=== PATIENT | female | born 1950 | race Caucasian/White ===

== ENCOUNTER → 2017-02-04 | Outpatient (CLI) | payer MEDICARE, OTHER ==
--- NOTE | 2017-02-04 13:30 | REPMRS ---
Patient History The patient states she had a clinical breast exam in 11/07 Patient is postmenopausal. Family history of prostate cancer in brother at age 50 or over. Digital Woman Screen Mammo: February 04, 2017 - Exam #: [id number] Bilateral CC and MLO view(s) were taken. Technologist: Genna Augustin, Technologist Prior study comparison: January 14, 2016, digital woman screen mammo performed at [facility] to Woman. January 01, 2015, digital woman screen mammo performed at [facility] Woman. December 09, 2013, digital woman screen mammo performed at [facility] Woman. FINDINGS: There are scattered fibroglandular densities. There has been no change in the appearance of the mammogram from the prior studies. There is a mild amount of scattered fibroglandular density which is fairly symmetric. There is no interval development of dominant mass, architectural distortion, or clustered microcalcification suggestive of malignancy. ASSESSMENT: BI-RADS/ACR category 1 mammogram. Negative. Recommendation Routine screening mammogram in 1 year (for women over age 40). This mammogram was interpreted with the aid of an FDA-approved computer-aided dectection system. Electronically Signed By: Nikolas Howard MD 02/04/17 7031
== END ==
LOC: M WHC 09:53
PROVIDERS: ATTEND Internal Medicine
DX: Z12.31 Encounter for screening mammogram for malignant neoplasm of breast (principal)

== ENCOUNTER 2017-12-18 12:18 | Outpatient (RCR) | payer SELFPAY | END 2017-12-23 | LOC: M CR 12:18 | DX: Z51.89 Encounter for other specified aftercare (principal); I10 Essential (primary) hypertension ==

== ENCOUNTER 2018-01-27 14:33 | Outpatient (RCR) | payer SELFPAY | END 2018-02-20 | LOC: M CR 14:33 | DX: I10 Essential (primary) hypertension (principal) ==

== ENCOUNTER → 2018-02-08 | Outpatient (CLI) | payer MEDICARE, OTHER | LOC: M WHC 10:20 | DX: Z12.31 Encounter for screening mammogram for malignant neoplasm of breast (principal) | CPT/HCPCS: 77067 ==

== ENCOUNTER 2018-03-15 08:52 | Outpatient (RCR) | payer SELFPAY | END 2018-03-22 | LOC: M CR 08:52 | DX: I10 Essential (primary) hypertension (principal) ==

== ENCOUNTER 2018-04-28 10:15 | Outpatient (RCR) | payer SELFPAY | END 2018-05-22 | LOC: M CR 10:15 | DX: I10 Essential (primary) hypertension (principal); Z71.9 Counseling, unspecified ==

== ENCOUNTER 2018-06-23 09:03 | Outpatient (RCR) | payer SELFPAY | END 2018-07-23 | LOC: M CR 09:03 | DX: I10 Essential (primary) hypertension (principal) ==

== ENCOUNTER 2018-12-01 13:58 | Outpatient (RCR) | payer SELFPAY | END 2018-12-23 | LOC: M CR 13:58 | PROVIDERS: ATTEND Internal Medicine | DX: I10 Essential (primary) hypertension (principal) ==

== ENCOUNTER → 2019-01-04 | Outpatient (REF) | payer MEDICARE, OTHER ==
[2019-01-04 11:10] LABS: BASO % 0.5 % (0.0-1.0); EOS # 0.2 10^3/uL (0.0-0.50); HEMATOCRIT 40.2 % (36.0-47.0); HEMOGLOBIN 12.9 g/dl (12.0-15.5); LYMPH # 1.2 10^3/uL (1.5-4.5); LYMPH % 19.9 % (24.0-44.0); MEAN CORPUSCULAR HEMOGLOBIN 29.2 pg (27.0-33.0); MEAN CORPUSCULAR HGB CONC 32.1 g/dl (32.0-36.5); MONO # 0.7 10^3/uL (0.0-0.8); MONO % 10.7 % (0.0-5.0); NEUTROPHILS % 65.6 % (36.0-66.0); PLATELET COUNT, AUTOMATED 171 10^3/uL (150-450); RED BLOOD COUNT 4.42 10^6/uL (4.00-5.40); WHITE BLOOD COUNT 6.1 10^3/uL (4.0-10.0)
[2019-01-04 11:41] LABS: ERYTHROCYTE SEDIMENTATION RATE 21 mm/hr (0-30)
[2019-01-04 11:44] LABS: ALBUMIN 3.8 GM/DL (3.2-5.2); ALT/SGPT 29 U/L (12-78); BILIRUBIN,TOTAL 0.2 MG/DL (0.2-1.0); BLOOD UREA NITROGEN 19 MG/DL (7-18); C REACTIVE PROTEIN QUANTITATIV < 0.30 MG/DL (0.00-0.30); CALCIUM LEVEL 8.4 MG/DL (8.8-10.2); CARBON DIOXIDE LEVEL 31 MEQ/L (21-32); CHLORIDE LEVEL 106 MEQ/L (98-107); CPK CREATINE PHOSPHOKINASE 67 U/L (26-192); CREATININE FOR GFR 0.78 MG/DL (0.55-1.30); GLOMERULAR FILTRATION RATE > 60.0 (>45); GLUCOSE, FASTING 76 MG/DL (70-100); POTASSIUM SERUM 4.3 MEQ/L (3.5-5.1); SODIUM LEVEL 144 MEQ/L (136-145); THYROID STIMULATING HORMONE 0.989 uIU/ML (0.358-3.740); TOTAL PROTEIN 6.6 GM/DL (6.4-8.2)
== END ==
LOC: M SFHCPLAZ 08:53
PROVIDERS: ATTEND Internal Medicine Rheumatology
DX: M79.10 Myalgia, unspecified site (principal); M70.60 Trochanteric bursitis, unspecified hip; E66.3 Overweight; Z68.30 Body mass index [BMI] 30.0-30.9, adult
CPT/HCPCS: 36415; 80053; 82550; 84443; 85025; 85652; 86140; G0463

== ENCOUNTER → 2019-02-14 | Outpatient (CLI) | payer MEDICARE, OTHER ==
--- NOTE | 2019-02-14 12:22 | REPMRS ---
Patient History The patient states she had a clinical breast exam in 12/11 Family history of prostate cancer at age 50 or over in brother. 3D TOMOSYNTHESIS WAS PERFORMED. Digital Woman Screen Mammo: February 14, 2019 - Exam #: [id number] Bilateral CC and MLO view(s) were taken. Technologist: Genna Augustin, Technologist Prior study comparison: February 08, 2018, digital woman screen mammo performed at [facility]. February 04, 2017, digital woman screen mammo performed at [facility] to [facility]. FINDINGS: There are scattered fibroglandular densities. There has been no change in the appearance of the mammogram from the prior studies. There is a mild amount of residual fibroglandular tissue which is fairly symmetric. There is no interval development of dominant mass, architectural distortion, or clustered microcalcification suggestive of malignancy. Assessment: BI-RADS/ACR category 1 mammogram. Negative Mammogram. Recommendation Routine screening mammogram in 1 year (for women over age 40). This mammogram was interpreted with the aid of an FDA-approved computer-aided dectection system. Electronically Signed By: Giovanni Lockwood MD 02/14/19 [id number]
== END ==
LOC: M WHC 10:55
PROVIDERS: ATTEND Internal Medicine
DX: Z12.31 Encounter for screening mammogram for malignant neoplasm of breast (principal)

== ENCOUNTER 2019-09-08 13:34 | Outpatient (RCR) | payer SELFPAY ==
[2019-09-08] MEDS ORDERED: BIOT1CAP2 PO (13:45)
[2019-09-08] MEDS ORDERED: ACET-683 PO (13:45)
[2019-09-08] MEDS ORDERED: D3 H2000 PO (13:45)
[2019-09-08] MEDS ORDERED: ROSU5TAB5 PO (13:45)
[2019-09-08] MEDS ORDERED: CLEO150C PO (13:45)
[2019-09-08] MEDS ORDERED: LISI-538 PO (13:45)
[2019-09-08] MEDS ORDERED: CALTTAB6 PO (13:45)
[2019-09-08] MEDS ORDERED: GABA600T4 PO (13:45)
[2019-09-08] MEDS ORDERED: EFFE150C2 PO (13:45)
[2019-09-08] MEDS ORDERED: TIZA2CAP PO (13:45)
== END 2019-09-22 ==
LOC: M CR 13:34
PROVIDERS: ATTEND Internal Medicine
DX: I10 Essential (primary) hypertension (principal)

== ENCOUNTER 2019-10-10 10:18 | Outpatient (RCR) | payer SELFPAY ==
[~2019-10-10 10:18] MED LIST: ACET-683 PO; BIOT1CAP2 PO; CALTTAB6 PO; CLEO150C PO; D3 H2000 PO; EFFE150C2 PO; GABA600T4 PO; LISI-538 PO; OMEP40CA97 PO; ROSU5TAB5 PO; SUCR1TA PO; TIZA2CAP PO
== END 2019-10-22 ==
LOC: M CR 10:18
PROVIDERS: ATTEND Internal Medicine
DX: I10 Essential (primary) hypertension (principal)

== ENCOUNTER 2020-01-04 14:00 | Outpatient (RCR) | payer SELFPAY | END 2020-01-21 | LOC: M CR 14:00 | PROVIDERS: ATTEND Internal Medicine | DX: I10 Essential (primary) hypertension (principal) ==

== ENCOUNTER → 2021-01-24 | Outpatient (CLI) | payer MEDICARE, OTHER ==
[~2021-01-24] MED LIST changes: -LISI-538 PO; +LISI20TA33 PO
--- NOTE | 2021-01-24 10:32 | REPMRS ---
Patient History The patient states she had a clinical breast exam in 11/2020 Family history of prostate cancer at age 50 or over in brother. 3D TOMOSYNTHESIS WAS PERFORMED. [facility] for breast cancer [facility] 5.1%. Volpara breast density a. Digital Woman Screen Mammo: January 24, 2021 - Exam #: [id number] Bilateral CC and MLO view(s) were taken. Technologist: Genna Augustin, Technologist Prior study comparison: February 14, 2019, bilateral digital woman screen mammo performed at [facility]. February 08, 2018, digital woman screen mammo performed at [facility]. FINDINGS: There are scattered fibroglandular densities. There has been no change in the appearance of the mammogram from the prior studies. There is a mild amount of residual fibroglandular tissue which is fairly symmetric. There is no interval development of dominant mass, architectural distortion, or clustered microcalcification suggestive of malignancy. Assessment: BI-RADS/ACR category 1 mammogram. Negative Mammogram. Recommendation Routine screening mammogram in 1 year (for women over age 40). This mammogram was interpreted with the aid of an FDA-approved computer-aided dectection system. Electronically Signed By: Giovanni Lockwood MD 01/24/21 [id number]
== END ==
LOC: M WHC 09:49
PROVIDERS: ATTEND Internal Medicine
DX: Z12.31 Encounter for screening mammogram for malignant neoplasm of breast (principal)

== ENCOUNTER 2021-10-27 10:17 | Emergency (ER) | payer MEDICARE, OTHER ==
[~2021-10-27] VITALS: Ht 157.5 cm; Wt 84.6 kg
[~2021-10-27 10:17] MED LIST changes: +OMEP40CA4 PO; -OMEP40CA97 PO
--- OUTSIDE RECORDS SUMMARY | 2021-10-27 10:23 | CCD | Continuity of Care Document ---
Author Author Rebecca CEJA PA-C Organization Unknown Address [address] [place] [address] Phone [phone] Care Team Providers Care Computer Systems Designer Name Role Phone Juana Bang MD AUTM [phone] Problems Active Problems Provider Date Essential hypertension Juana Bang MD Onset: 09/25/2015 Osteoarthritis Juana Bang MD Onset: 09/14/2011 Benign essential hypertension Juana Bang MD Onset: Pure hypercholesterolemia Juana Bang MD Onset: 011 Social History Type Date Description Comments Sex Unknown ETOH Use Denies alcohol use Tobacco Use Start: Unknown Denies Smoking Allergies and adverse reactions Active Allergies Criticality Reaction | Severity Comments Date Penicillins Unable to assess criticality 04/04/2015 sulfa drugs Unable to assess criticality 01/26/2020 Amoxicillin Unable to assess criticality 01/26/2020 Morphine Unable to assess criticality 01/26/2020 Medications Active Medications SIG Qnty Indications Ordering Provide r Date Tylenol With Codeine #3 300-30mg T ablets 1-2 tabs by mouth every 4-6 hours as needed pain after surgery(please do not fill until 04/02/2021) 30tabs Benjamin Ceja MD 021 Euflexxa 20mg/2ML Soln Prefill Syr edgar Lt. knee euflexxa #1 KLF/SH 09/27/21 Benjamin Ceja MD 10/26/2020 Lisinopril 20mg Tablets 1 by mouth qhs 30tabs Juana Bang MD 07/01/2018 Effexor XR 75mg Caps ER 24HR 3 po qd 270caps Juana Bang MD 03/29/2013 Gabapentin 600mg Tablets 1 PO bid 180tabs Juana Bang MD 01/30/2011 Clindamycin HCL 150mg Capsules 4 capsules prior to dental procedure 4caps Juana Bang MD Rosuvastatin Calcium 5mg Tablets Unknown Omeprazole 40mg Capsules DR Unknown Caltrate 600+D3 [id number] Tab lets 1 by mouth twice a day Unknown Biotin 5000mcg Capsules 1 by mouth every day Unknown Vitamin D3 Super Strength 50mcg (2000 Ut) Capsules 1 by mouth every day Unknown Acetaminophen 500mg Tablets take 1-2 tablets by mouth every 6 hours as needed for pain Unknown Hydrochlorothiazide 12.5mg Tablets Take One Tablet By Mouth Every Day Unknown Immunizations Description No Information Available Vital Signs Date Vital Result Comment 07/17/2021 9:18am Body Temperature 96.2 F Height 62 inches 5'2" Weight 183.12 lb BMI (Body Mass Index) 33.5 kg/m2 04/23/2021 11:53am Body Temperature 96.9 F Height 62 inches 5'2" Weight 180.00 lb BMI (Body Mass Index) 32.9 kg/m2 Results Description No Information Available Procedures Date Code Description Status 09/27/2021 Inject/Drain Joint/Bursa Major C ompleted 09/05/2021 84805 Office/Outpatient Established Mo d MDM 30-39 Min Completed 09/05/2021 Inject/Drain Joint/Bursa Major C ompleted 09/05/2021 99356 X-Ray Knee Complete W/Obliques & Tunnel And/Or Standing Views Completed 07/17/2021 54091 Office/Outpatient Established Lo w MDM 20-29 Min Completed 06/05/2021 91910 Therapeutic Procedure, Each 15 M inutes Completed 06/03/2021 34295 Therapeutic Procedure, Each 15 M inutes Completed 05/31/2021 72131 Therapeutic Procedure, Each 15 M inutes Completed 05/29/2021 39967 Therapeutic Procedure, Each 15 M inutes Completed 05/28/2021 87406 Office/Outpatient Established Lo w MDM 20-29 Min Completed 05/23/2021 40706 Office/Outpatient Established Lo w MDM 20-29 Min Completed 05/17/2021 66969 Therapeutic Procedure, Each 15 M inutes Completed 05/15/2021 92648 Therapeutic Procedure, Each 15 M inutes Completed 05/13/2021 08839 Therapeutic Procedure, Each 15 M inutes Completed 05/10/2021 35750 Therapeutic Procedure, Each 15 M inutes Completed 05/10/2021 29014 Hot Or Cold Packs Completed 05/08/2021 45554 Therapeutic Procedure, Each 15 M inutes Completed 2021 21784 Therapeutic Procedure, Each 15 M inutes Completed 04/30/2021 41063 Therapeutic Procedure, Each 15 M inutes Completed 04/26/2021 45227 Therapeutic Procedure, Each 15 M inutes Completed 04/26/2021 92177 Hot Or Cold Packs Completed 04/24/2021 67766 Therapeutic Procedure, Each 15 M inutes Completed 04/23/2021 99126 Office/Outpatient Established Mo d MDM 30-39 Min Completed 04/23/2021 30640 X-Ray Shoulder Complete Complete d 04/23/2021 55991 X-Ray Spine Cervical 6 Or More V iews Completed 04/23/2021 80433 Inject/Drain Joint/Bursa Major C ompleted 04/19/2021 76777 Therapeutic Procedure, Each 15 M inutes Completed 04/15/2021 95559 Therapeutic Procedure, Each 15 M inutes Completed 04/12/2021 60057 Therapeutic Procedure, Each 15 M inutes Completed 04/10/2021 79990 Therapeutic Procedure, Each 15 M inutes Completed 04/08/2021 63635 Therapeutic Procedure, Each 15 M inutes Completed 04/04/2021 72778 Re-Eval Of PT Establ ished Plan Of Care 20Mins Face To Face PT/Fam Completed 04/02/2021 35034 Arthroscopy Knee W/M eniscectomy Inc Chondroplasty (Med & Lateral) Completed Medical Devices Description No Information Available Encounters Type Date Location Provider Dx Diagnosis Office Visit 09/27/2021 3:00p Lucina Ceja PA-C M17.12 Unilateral primary osteoarthritis, left knee Office Visit 09/05/2021 10:00a Lucina Ceja PA-C M17.12 Unilateral primary osteoarthritis, left knee Office Visit 07/17/2021 9:15a [place] M17.11 Unilateral primary osteoarthritis, right knee M23.203 Derang of unsp medial menisc us due to old tear/inj, r knee Office Visit 05/23/2021 1:30p [place] Z47.89 Encounter for other orthopedic aftercare M23.203 Derang of unsp medial menisc us due to old tear/inj, r knee M17.11 Unilateral primary osteoarth ritis, right knee Office Visit 04/23/2021 11:15a [place] PA-C M19.011 Primary osteoarthritis, right shoulder M75.41 Impingement syndrome of righ t shoulder M47.892 Other spondylosis, cervical region Office Visit 04/11/2021 2:00p [place] PA-C Z47.89 Encounter for other orthopedic aftercare Assessments Date Code Description Provider 09/27/2021 M17.12 Unilateral primary osteoarthriti s, left knee Evelyne Ceja PA-C 09/05/2021 M17.12 Unilateral primary osteoarthriti s, left knee Evelyne Ceja PA-C 07/17/2021 M17.11 Unilateral primary osteoarthriti s, right knee Benjamin Ceja MD 07/17/2021 M23.203 Derangement of unspe cified medial meniscus due to old tear or injury, right knee Benjamin Ceja MD 06/05/2021 Z47.89 Encounter [facility] other [facility]ui [facility] 06/03/2021 Z47.89 Encounter for other orthopedic a hui Gardiner, [facility] 05/31/2021 Z47.89 Encounter for other orthopedic a hui Gardiner, [facility] 05/29/2021 Z47.89 Encounter for other orthopedic a hui [place], [facility] 05/28/2021 M19.011 Primary osteoarthritis, right sh sarah Ceja PA-C 05/28/2021 M75.41 Impingement syndrome of right sh sarah Ceja PA-C 05/28/2021 M47.892 Other spondylosis, cervical yusef on Evelyen Zarate PARVEEN Ceja 05/23/2021 Z47.89 Encounter for other orthopedic a ftercare Benjamin Ceja MD 05/23/2021 M23.203 Derangement of unspe cified medial meniscus due to old tear or injury, right knee Benjamin Ceja MD 05/23/2021 M17.11 Unilateral primary osteoarthriti s, right knee Benjamin Ceja MD 05/17/2021 Z47.89 Encounter for other orthopedic a ftercare Torie Scee P.T.A. 05/15/2021 Z47.89 Encounter for other orthopedic a ftercare Yolande Gardiner, [facility] 05/13/2021 Z47.89 Encounter for other orthopedic a ftercare Yolande MartirVanessa Gardiner, [facility] 05/10/2021 Z47.89 Encounter for other orthopedic a ftercare Yolande MartirVanessa [facility], [facility] 05/08/2021 Z47.89 Encounter for other orthopedic a ftercare Torie Scee P.T.A. 2021 Z47.89 Encounter for other orthopedic a ftercare Yolande Martir. Abdifatah, [facility] 04/30/2021 Z47.89 Encounter for other orthopedic a ftercare Yolande MartirVanessa Gardiner, [facility] 04/26/2021 Z47.89 Encounter for other orthopedic a ftercare Yolande MartirVanessa Gardiner, [facility] 04/24/2021 Z47.89 Encounter for other orthopedic a ftercare Yolande MartirVanessa Gardiner, [facility] 04/23/2021 M19.011 Primary osteoarthritis, right raj Evelyne Zarate PARVEEN Ceja 04/23/2021 M75.41 [facility] PARVEEN Ceja 04/23/2021 M47.892 Other spondylosis, cervical yusef on Evelyne Zarate PARVEEN Ceja 04/19/2021 Z47.89 Encounter for other orthopedic a ftercare Yolande Gardiner, [facility] 04/15/2021 Z47.89 Encounter for other orthopedic a ftercare Torie Scee P.T.A. 04/12/2021 Z47.89 Encounter for other orthopedic a ftercare Nurses 04/12/2021 Z47.89 Encounter for other orthopedic a ftercare [facility] 04/11/2021 Z47.89 Encounter for other orthopedic a ftercare Evelyne Ceja PA-C 04/10/2021 Z47.89 Encounter for other orthopedic a ftercare Torie Henderson P.T.A. 04/08/2021 Z47.89 Encounter for other orthopedic a ftercare Torie Henderson P.T.A. 04/05/2021 Z47.89 Encounter for other orthopedic a ftercare Benjamin Ceja MD 04/04/2021 Z47.89 Encounter for other orthopedic a ftercare Y[facility]ande [facility], [facility] 04/02/2021 M23.204 Derangement of unspe cified medial meniscus due to old tear or injury, left knee Benjamin Ceja MD 04/02/2021 M23.242 Derangement of anter ior horn of lateral meniscus due to old tear or injury, left knee Benjamin Ceja MD 04/02/2021 M17.12 Unilateral primary osteoarthriti s, left knee Benjamin Ceja MD Plan of Treatment Future Appointment(s):* 10/11/2021 9:30 am - Evelyne Ceja PA-C at [place] * 10/04/2021 9:15 am - Evelyne Ceja PA-C at [place] Functional Status Description No Information Available Mental Status Description No Information Available Referrals Refer to Dr Reason for Referral Status Appt Date Evelyne Ceja PA-C Euflexxa left knee per medic are no auth req based on medical necessity, per elmira s at [facility] no auth req, per katjs s at r no auth req, passed to set up mechanic automatic line sw. Created [address] [place] [phone] [phone] Evelyne Ceja PA-C Euflexxa left knee per medic are no auth req based on medical necessity, per elmira s at [facility] no auth req, per katjs s at r no auth req, passed to set up mechanic automatic line sw. Created [address] [address] [phone] Tra, Evelyne Jauregui, PARVEEN Euflexxa left knee per medic are no auth req based on medical necessity, per elmira s at [facility] no auth req, per hilary s at [facility] no auth req, passed to set up mechanic automatic line sw. Created [address] [place] [address] [phone] Ki Diallo MD PT BASED ON MED. [facility] TO PT DEPT. NT Creat ed [address] [place] [address] [phone] Ki Diallo MD PT BASED ON MED. [facility] TO PT DEPT. NT Creat ed [address] [place] [address] [phone]
--- OUTSIDE RECORDS SUMMARY | 2021-10-27 10:23 | CCD | Continuity of Care Document ---
Author Author Rebecca CEJA PA-C Organization Unknown Address [address] [place] [address] Phone [phone] Care Team Providers Care Relief Map Modeler Name Role Phone Juana Bang MD AUTM [phone] Problems Active Problems Provider Date Essential hypertension [...] 021 Euflexxa 20mg/2ML Soln Prefill Syr edgar lt. knee euflexxa #1 eduardo/sh 09/27/21 L knee euflexxa #2 10/04/21 EDUARDO/SB Benjamin Ceja MD 10/26/2020 Lisinopril 20mg Tablets 1 by mouth qhs 30tabs Juana Bang MD 07/01/2018 Effexor XR 75mg Caps ER 24HR 3 po qd 270caps Juana Bang MD 03/29/2013 Gabapentin 600mg Tablets 1 PO bid 180tabs Jauna Bang MD 01/30/2011 Clindamycin HCL 150mg Capsules 4 capsules prior to dental procedure 4cJuaan Delgado MD Rosuvastatin Calcium 5mg Tablets Unknown Omeprazole 40mg Capsules DR Unknown Caltrate 600+D3 [id number] Tab lets 1 by mouth twice a [...] Information Available Procedures Date Code Description Status 10/04/2021 Inject/Drain Joint/Bursa Major C ompleted 09/27/2021 Inject/Drain Joint/Bursa Major C ompleted 09/05/2021 45627 Office/Outpatient Established Mo d MDM 30-39 Min Completed 09/05/2021 18210 X-Ray Knee Complete W/Obliques & Tunnel And/Or Standing Views Completed 09/05/2021 Inject/Drain Joint/Bursa Major C ompleted 07/17/2021 91272 Office/Outpatient Established Lo w MDM 20-29 Min Completed 06/05/2021 48126 Therapeutic Procedure, Each 15 M inutes Completed 06/03/2021 31865 Therapeutic Procedure, Each 15 M inutes Completed 05/31/2021 12382 Therapeutic Procedure, Each 15 M inutes Completed 05/29/2021 24716 Therapeutic Procedure, Each 15 M inutes Completed 05/28/2021 18036 Office/Outpatient Established Lo w MDM 20-29 Min Completed 05/23/2021 71549 Office/Outpatient Established Lo w MDM 20-29 Min Completed 05/17/2021 73073 Therapeutic Procedure, Each 15 M inutes Completed 05/15/2021 84722 Therapeutic Procedure, Each 15 M inutes Completed 05/13/2021 59000 Therapeutic Procedure, Each 15 M inutes Completed 05/10/2021 85851 Hot Or Cold Packs Completed 05/10/2021 76264 Therapeutic Procedure, Each 15 M inutes Completed 05/08/2021 93080 Therapeutic Procedure, Each 15 M inutes Completed 2021 59661 Therapeutic Procedure, Each 15 M inutes Completed 04/30/2021 80075 Therapeutic Procedure, Each 15 M inutes Completed 04/26/2021 53641 Therapeutic Procedure, Each 15 M inutes Completed 04/26/2021 11759 Hot Or Cold Packs Completed 04/24/2021 34177 Therapeutic Procedure, Each 15 M inutes Completed 04/23/2021 31741 Office/Outpatient Established Mo d MDM 30-39 Min Completed 04/23/2021 80584 X-Ray Shoulder Complete Complete d 04/23/2021 98082 X-Ray Spine Cervical 6 Or More V iews Completed 04/23/2021 54946 Inject/Drain Joint/Bursa Major C ompleted 04/19/2021 58602 Therapeutic Procedure, Each 15 M inutes Completed 04/15/2021 94476 Therapeutic Procedure, Each 15 M inutes Completed 04/12/2021 52233 Therapeutic Procedure, Each 15 M inutes Completed 04/10/2021 35824 Therapeutic Procedure, Each 15 M inutes Completed 04/08/2021 55652 Therapeutic Procedure, Each 15 M inutes Completed Medical Devices Description No Information Available Encounters Type Date Location Provider Dx Diagnosis Office Visit 10/04/2021 9:15a Lucina Ceja PA-C M17.12 Unilateral primary osteoarthritis, left knee Office Visit 09/27/2021 3:00p Lucina Ceaj PA-C M17.12 Unilateral primary osteoarthritis, left knee Office Visit 09/05/2021 10:00a Lucina Ceja PA-C M17.12 Unilateral primary osteoarthritis, left knee Office Visit 07/17/2021 9:15a [place] MD M17.11 Unilateral primary osteoarthritis, right knee M23.203 Derang of unsp medial menisc us due to old tear/inj, r knee Office Visit 05/23/2021 1:30p [place] MD Z47.89 Encounter for other orthopedic aftercare M23.203 Derang of unsp medial menisc us due to old tear/inj, r knee M17.11 Unilateral primary osteoarth ritis, right knee Office Visit 04/23/2021 11:15a [place] PA-C M19.011 Primary osteoarthritis, right shoulder M75.41 Impingement syndrome of righ t shoulder M47.892 Other spondylosis, cervical region Office Visit 04/11/2021 2:00p Lucina Ceja PA-C Z47.89 Encounter for other orthopedic aftercare Assessments Date Code Description Provider 10/04/2021 M17.12 Unilateral primary osteoarthriti s, left knee Evelyne Ceja PA-C 09/27/2021 M17.12 Unilateral primary osteoarthriti s, left knee Evelyne Ceja PA-C 09/05/2021 M17.12 Unilateral primary osteoarthriti s, left knee Evelyne Ceja PA-C 07/17/2021 M17.11 Unilateral primary osteoarthriti s, right knee Benjamin Ceja MD 07/17/2021 M23.203 Derangement of unspe cified medial meniscus due to old tear or injury, right knee Benjamin Ceja MD 06/05/2021 Z47.89 Encounter for other orthopedic a ftcheyenne Gardiner, [facility] 06/03/2021 Z47.89 Encounter for other orthopedic a ftercare Yolande Gardiner, [facility]SP[facility] 05/31/2021 Z47.89 Encounter for other orthopedic a hui [place], [facility] 05/29/2021 Z47.89 Encounter for other orthopedic a ftcheyenne Gardiner, [facility]SP[facility] 05/28/2021 M19.011 Primary osteoarthritis, right sh sarah Zarate PEBBLES Ceja-C 05/28/2021 M75.41 Impingement syndrome of right sarah Zarate Tra, PA-C 05/28/2021 M47.892 Other spondylosis, cervical yusef on Evelyne Zarate Tra PA-C 05/23/2021 Z47.89 Encounter for other orthopedic a [...] Encounter for other orthopedic a ftercare Yolande M. Abdifatah, MSPT 05/10/2021 Z47.89 Encounter for other orthopedic a ftercare Yolande M. Abdifatah, MSPT 05/08/2021 Z47.89 Encounter for other orthopedic a ftercare Torie Scee P.T.A. 2021 Z47.89 Encounter for other orthopedic a ftercare Yolande M. Alonzopa, MSPT 04/30/2021 Z47.89 Encounter for other orthopedic a ftercare Yolande M. Alonzopa, MSPT 04/26/2021 Z47.89 Encounter for other orthopedic a ftercare Yolande M. Vespa, MSPT 04/24/2021 Z47.89 Encounter for other orthopedic a ftercare Yolande M. Vespa, [facility]SPT 04/23/2021 M19.011 Primary osteoarthritis, right sarah Zarate Tra PA-C 04/23/2021 M75.41 Impingement syndrome of right sarah Zarate Tra PA-C 04/23/2021 M47.892 Other spondylosis, cervical yusef on Evelyne Zarate Tra PA-C 04/19/2021 Z47.89 Encounter for other orthopedic a ftercare Yolande Gardiner, [facility]SP[facility] 04/15/2021 Z47.89 Encounter for other orthopedic a ftercare Torie Howiee P.T.A. 04/12/2021 Z47.89 Encounter for other orthopedic a ftercare Nurses 04/12/2021 Z47.89 Encounter for other orthopedic a ftercare Yolande Gardiner, [facility]SPT 04/11/2021 Z47.89 Encounter for other orthopedic a ftercare Evelyne Ceja PA-C 04/10/2021 Z47.89 Encounter for other orthopedic a ftercare Torie Denisee P.T.A. 04/08/2021 Z47.89 Encounter for other orthopedic a ftercare Torie Scee P.T.A. Plan of Treatment Future Appointment(s):* 10/11/2021 9:30 am - Evelyne Ceja PA-C at [place] Functional Status Description No Information Available Mental Status Description No Information Available Referrals Refer to Dr Reason for Referral Status Appt Date Evelyne Ceja PA-C Euflexxa left knee per medic are no auth req based on medical necessity, per elmira s at [facility] no auth req, per katjs s at r no auth req, passed to outsole scheduler sw. Created [address] [place] [address] [phone] Evelyne Ceja PA-C Euflexxa left knee per medic are no auth req based on medical necessity, per elmira s at [facility] no auth req, per katjs s at [facility] no auth req, passed to outsole scheduler sw. Created [address] [place] [phone] Evelyne Ceja PA-C Euflexxa left knee per medic are no auth req based on medical necessity, per elmira s at [facility] no auth req, per katjs s at r no auth req, passed to outsole scheduler sw. Created [address] [place] [phone] Ki Diallo MD PT BASED ON MED. [facility] TO PT DEPT. NT Creat ed [address] [facility], [address] [address] [phone] Ki Diallo MD PT BASED ON MED. [facility] TO PT DEPT. NT Creat ed [address] [facility], [address] [address] [phone]
--- OUTSIDE RECORDS SUMMARY | 2021-10-27 10:23 | CCD | Continuity of Care Document ---
Author Author Rebecca CEJA PA-C Organization Unknown Address [address] [place] [address] Phone [phone] Care Team Providers Care School Examiner Name Role Phone Juana Bang MD AUTM [phone] Problems Active Problems Provider Date Essential hypertension [...] Prefill Syr edgar lt. knee euflexxa #1 klf/sh 09/27/21 l knee euflexxa #2 10/04/21 klf/sb lt knee #3 10/11/21 klf/lb Vitaly Will MD 10/26/2020 Lisinopril 20mg Tablets 1 by [...] Omeprazole 40mg Capsules DR Unknown Caltrate 600+D3 [id number] Tab lets 1 by mouth twice a day Unknown Biotin 5000mcg Capsules 1 by mouth every day Unknown Vitamin D3 Super Strength 50mcg (2000 Ut) Capsules 1 by mouth every day Unknown 000 Acetaminophen 500mg Tablets take 1-2 tablets by [...] Information Available Procedures Date Code Description Status 10/11/2021 Inject/Drain Joint/Bursa Major C ompleted 10/04/2021 Inject/Drain Joint/Bursa Major C ompleted 09/27/2021 Inject/Drain Joint/Bursa Major C ompleted 09/05/2021 79056 Office/Outpatient Established Mo d MDM 30-39 Min Completed 09/05/2021 73975 X-Ray Knee Complete W/Obliques & Tunnel And/Or Standing Views Completed 09/05/2021 Inject/Drain Joint/Bursa Major C ompleted 07/17/2021 17549 Office/Outpatient Established Lo w MDM 20-29 Min Completed 06/05/2021 15977 Therapeutic Procedure, Each 15 M inutes Completed 06/03/2021 84539 Therapeutic Procedure, Each 15 M inutes Completed 05/31/2021 92800 Therapeutic Procedure, Each 15 M inutes Completed 05/29/2021 76036 Therapeutic Procedure, Each 15 M inutes Completed 05/28/2021 12472 Office/Outpatient Established Lo w MDM 20-29 Min Completed 05/23/2021 55582 Office/Outpatient Established Lo w MDM 20-29 Min Completed 05/17/2021 32764 Therapeutic Procedure, Each 15 M inutes Completed 05/15/2021 02186 Therapeutic Procedure, Each 15 M inutes Completed 05/13/2021 07357 Therapeutic Procedure, Each 15 M inutes Completed 05/10/2021 49831 Therapeutic Procedure, Each 15 M inutes Completed 05/10/2021 73753 Hot Or Cold Packs Completed 05/08/2021 50490 Therapeutic Procedure, Each 15 M inutes Completed 2021 73215 Therapeutic Procedure, Each 15 M inutes Completed 04/30/2021 89716 Therapeutic Procedure, Each 15 M inutes Completed 04/26/2021 09990 Therapeutic Procedure, Each 15 M inutes Completed 04/26/2021 28683 Hot Or Cold Packs Completed 04/24/2021 30037 Therapeutic Procedure, Each 15 M inutes Completed 04/23/2021 37624 Office/Outpatient Established Mo d MDM 30-39 Min Completed 04/23/2021 50897 X-Ray Shoulder Complete Complete d 04/23/2021 74030 X-Ray Spine Cervical 6 Or More V iews Completed 04/23/2021 53641 Inject/Drain Joint/Bursa Major C ompleted 04/19/2021 40060 Therapeutic Procedure, Each 15 M inutes Completed 04/15/2021 12720 Therapeutic Procedure, Each 15 M inutes Completed 04/12/2021 33121 Therapeutic Procedure, Each 15 M inutes Completed Medical Devices Description No Information Available Encounters Type Date Location Provider Dx Diagnosis Office Visit 10/11/2021 9:30a Lucina Ceja PA-C M17.12 Unilateral primary osteoarthritis, left knee Office Visit 10/04/2021 9:15a Lucina Ceja PA-C M17.12 Unilateral primary osteoarthritis, left knee Office Visit 09/27/2021 3:00p Lucina Ceja PA-C M17.12 Unilateral primary osteoarthritis, left knee Office Visit 09/05/2021 10:00a Humblesundar Ceja PA-C M17.12 Unilateral primary osteoarthritis, left knee Office Visit 07/17/2021 9:15a Lucina Ceja MD M17.11 Unilateral primary osteoarthritis, right knee M23.203 Derang of unsp medial menisc us due to old tear/inj, r knee Office Visit 05/23/2021 1:30p Lucina Ceja MD Z47.89 Encounter for other orthopedic aftercare M23.203 Derang of unsp medial menisc us due to old tear/inj, r knee M17.11 Unilateral primary osteoarth ritis, right knee Office Visit 04/23/2021 11:15a Lucina Ceja PA-C M19.011 Primary osteoarthritis, right shoulder M75.41 Impingement syndrome of righ t shoulder M47.892 Other spondylosis, cervical region Office Visit 04/11/2021 2:00p Lucina Ceja PA-C Z47.89 Encounter for other orthopedic aftercare Assessments Date Code Description Provider 10/11/2021 M17.12 Unilateral primary osteoarthriti s, left knee Evelyne L. PARVEEN Ceja 10/04/2021 M17.12 Unilateral primary osteoarthriti s, left knee Evelyne L. PARVEEN Ceja 09/27/2021 M17.12 Unilateral primary osteoarthriti s, left knee Evelyne L. PARVEEN Ceja 09/05/2021 M17.12 Unilateral primary osteoarthriti s, left knee Evelyne L. PARVEEN Ceja 07/17/2021 M17.11 Unilateral primary osteoarthriti s, right knee Benjamin Ceja MD 07/17/2021 M23.203 Derangement of unspe cified medial meniscus due to old tear or injury, right knee Benjamin Ceja MD 06/05/2021 Z47.89 Encounter for other orthopedic a ANSELMO Edward 06/03/2021 Z47.89 Encounter for other orthopedic a ANSELMO Edward 05/31/2021 Z47.89 Encounter for other orthopedic a ftercare Yolande Mcmahan. Abdifatah, MSPT 05/29/2021 Z47.89 Encounter for other orthopedic a ftercare Yolande Martir. Alonzopa, MSPT 05/28/2021 M19.011 Primary osteoarthritis, right sh sarah Zarate PARVEEN Ceja 05/28/2021 M75.41 Impingement syndrome of right sh oulder Evelyne Zarate CHUCK CejaC 05/28/2021 M47.892 Other spondylosis, cervical yusef on EvelyneCHUCK BurnsC 05/23/2021 Z47.89 Encounter for other orthopedic a ftercare Benjamin Ceja MD 05/23/2021 M23.203 Derangement of unspe cified medial meniscus due to old tear or injury, right knee Benjamin Ceja MD 05/23/2021 M17.11 Unilateral primary osteoarthriti s, right knee Benjamin Ceja MD 05/17/2021 Z47.89 Encounter for other orthopedic a ftercare Torie Denisee P.T.A. 05/15/2021 Z47.89 Encounter for other orthopedic a ftercare Yolande Mcmahan. Alonzoshazia, MSPT 05/13/2021 Z47.89 Encounter for other orthopedic a ftercare Yolande M. Alonzopa, MSPT 05/10/2021 Z47.89 Encounter for other orthopedic a ftercare Yolande M. Alonzopa, MSPT 05/08/2021 Z47.89 Encounter for other orthopedic a ftercare Torie Scee P.T.A. 2021 Z47.89 Encounter for other orthopedic a ftercare Yolande M. Alonzopa, MSPT 04/30/2021 Z47.89 Encounter for other orthopedic a ftercare Yolande M. Vespa, MSPT 04/26/2021 Z47.89 Encounter for other orthopedic a ftercare Yolande M. Vespa, MSPT 04/24/2021 Z47.89 Encounter for other orthopedic a ftercare Yolande M. Alonzopa, MSPT 04/23/2021 M19.011 Primary osteoarthritis, right sh dianelder Evelyne Zarate CHUCK CejaC 04/23/2021 M75.41 Impingement syndrome of right sh oulder Evelyne Ceja PA-C 04/23/2021 M47.892 Other spondylosis, cervical yusef on Evelyne Zarate PARVEEN Ceja 04/19/2021 Z47.89 Encounter for other orthopedic a ftercare Yolande Rosadoshazia, MSPT 04/15/2021 Z47.89 Encounter for other orthopedic a ftercare Torie Henderson P.T.A. 04/12/2021 Z47.89 Encounter for other orthopedic a ftercare Nurses 04/12/2021 Z47.89 Encounter for other orthopedic a ftercare Yolande McmahanVanessa Alonzoshazia, MSPT 04/11/2021 Z47.89 Encounter for other orthopedic a ftercare Evelyne Ceja PA-C Plan of Treatment No Information Available Functional Status Description No Information Available Mental Status Description No Information Available Referrals Refer to Dr Reason for Referral Status Appt Date TraLorenzostephanie Jauregui PA-C Euflexxa left knee per medic are no auth req based on medical necessity, per elmira s at [facility] no auth req, per katjs s at r no auth req, passed to scheduler maintenance sw. Created [address] [place] [address] [phone] TraEvelyne Shania, PA-C Euflexxa left knee per medic are no auth req based on medical necessity, per elmira s at [facility] no auth req, per katjs s at r no auth req, passed to scheduler maintenance sw. Created [address] [place] [phone] Evelyne Ceja Shania, PA-C Euflexxa left knee per medic are no auth req based on medical necessity, per elmira s at [facility] no auth req, per katjs s at r no auth req, passed to scheduler maintenance sw. Created [address] [place] [phone] Ki Diallo MD PT BASED ON MED. [facility] TO PT DEPT. NT Creat ed [address] [place] [address], [address] [place] [address] [phone] Ki Diallo MD PT BASED ON MED. [facility] TO PT DEPT. NT Creat ed [address] [facility] [address] [place] [address] [phone]
--- OUTSIDE RECORDS SUMMARY | 2021-10-27 10:23 | CCD | Continuity of Care Document ---
Author Author Rebecca CEJA PA-C Organization Unknown Address [address] [place] [address] Phone [phone] Care Team Providers Care Technical Internship Name Role Phone Juana Bang MD AUTM [phone] Problems Active Problems Provider Date Essential hypertension [...] Capsules 4 capsules prior to dental procedure 4cJuana Delgado MD Rosuvastatin Calcium 5mg Tablets Unknown Omeprazole 40mg Capsules DR Unknown Caltrate 600+D3 [id number] Tab lets 1 by mouth twice a [...] 09/27/2021 Inject/Drain Joint/Bursa Major C ompleted 09/05/2021 19782 Office/Outpatient Established Mo d MDM 30-39 Min Completed 09/05/2021 08941 X-Ray Knee Complete W/Obliques & Tunnel And/Or Standing Views Completed 09/05/2021 Inject/Drain Joint/Bursa Major C ompleted 07/17/2021 48425 Office/Outpatient Established Lo w MDM 20-29 Min Completed 06/05/2021 45755 Therapeutic Procedure, Each 15 M inutes Completed 06/03/2021 52365 Therapeutic Procedure, Each 15 M inutes Completed 05/31/2021 58047 Therapeutic Procedure, Each 15 M inutes Completed 05/29/2021 83959 Therapeutic Procedure, Each 15 M inutes Completed 05/28/2021 82648 Office/Outpatient Established Lo w MDM 20-29 Min Completed 05/23/2021 39065 Office/Outpatient Established Lo w MDM 20-29 Min Completed 05/17/2021 58671 Therapeutic Procedure, Each 15 M inutes Completed 05/15/2021 20619 Therapeutic Procedure, Each 15 M inutes Completed 05/13/2021 43439 Therapeutic Procedure, Each 15 M inutes Completed 05/10/2021 72460 Hot Or Cold Packs Completed 05/10/2021 20138 Therapeutic Procedure, Each 15 M inutes Completed 05/08/2021 46965 Therapeutic Procedure, Each 15 M inutes Completed 2021 14798 Therapeutic Procedure, Each 15 M inutes Completed 04/30/2021 60103 Therapeutic Procedure, Each 15 M inutes Completed 04/26/2021 20400 Therapeutic Procedure, Each 15 M inutes Completed 04/26/2021 46575 Hot Or Cold Packs Completed 04/24/2021 86977 Therapeutic Procedure, Each 15 M inutes Completed 04/23/2021 62037 Office/Outpatient Established Mo d MDM 30-39 Min Completed 04/23/2021 35527 X-Ray Shoulder Complete Complete d 04/23/2021 92236 X-Ray Spine Cervical 6 Or More V iews Completed 04/23/2021 34657 Inject/Drain Joint/Bursa Major C ompleted 04/19/2021 02472 Therapeutic Procedure, Each 15 M inutes Completed 04/15/2021 89002 Therapeutic Procedure, Each 15 M inutes Completed 04/12/2021 50816 Therapeutic Procedure, Each 15 M inutes Completed 04/10/2021 72024 Therapeutic Procedure, Each 15 M inutes Completed 04/08/2021 04783 Therapeutic Procedure, Each 15 M inutes Completed Medical Devices Description No Information Available Encounters Type Date Location Provider Dx Diagnosis Office Visit 10/04/2021 9:15a Lucina Ceja PA-C M17.12 Unilateral primary osteoarthritis, left knee Office Visit 09/27/2021 3:00p Lucina Ceja PA-C M17.12 Unilateral primary osteoarthritis, left knee Office Visit 09/05/2021 10:00a Lucina Ceja PA-C M17.12 Unilateral primary osteoarthritis, left knee Office Visit 07/17/2021 9:15a Palmettosundar Ceja MD M17.11 Unilateral primary osteoarthritis, right knee M23.203 Derang of unsp medial menisc us due to old tear/inj, r knee Office Visit 05/23/2021 1:30p Palmettosundar Ceja MD Z47.89 Encounter for other orthopedic aftercare M23.203 Derang of unsp medial menisc us due to old tear/inj, r knee M17.11 Unilateral primary osteoarth ritis, right knee Office Visit 04/23/2021 11:15a Palmettosanjiv Ceja PA-C M19.011 Primary osteoarthritis, right shoulder [...] Unilateral primary osteoarthriti s, left knee Evelyne Cjea PA-C 07/17/2021 M17.11 Unilateral primary osteoarthriti s, [...] 9:30 am - Evelyne Ceja PA-C at [facility] Functional Status Description No Information Available Mental Status Description No Information Available Referrals Refer to Dr Reason for Referral Status Appt Date Evelyne Ceja PA-C Euflexxa left knee per medic are no auth req based on medical necessity, per elmira s at [facility] no auth req, per katjs s at r no auth req, passed to receptionist scheduler sw. Created [address] [place] [address] [phone] Evelyne Ceja PA-C Euflexxa left knee per medic are no auth req based on medical necessity, per elmira s at [facility] no auth req, per katjs s at [facility] no auth req, passed to receptionist scheduler sw. Created [address] [place] [phone] Evelyne Ceja PA-C Euflexxa left knee per medic are no auth req based on medical necessity, per elmira s at [facility] no auth req, per katjs s at r no auth req, passed to receptionist scheduler sw. Created [address] [place] [address] [phone] Ki Diallo MD PT BASED ON MED. [facility] TO PT DEPT. NT Creat ed 1571 [facility], [address] [address] [phone] Ki Diallo MD PT BASED ON MED. [facility] TO PT DEPT. NT Creat ed 1571 [facility], [address] [address] [phone]
--- OUTSIDE RECORDS SUMMARY | 2021-10-27 10:23 | CCD | Continuity of Care Document ---
Author Author Rebecca CEJA PA-C Organization Unknown Address [address] [place] [address] Phone [phone] Care Team Providers Care Hospital Nurse Liaison Name Role Phone Juana Bang MD AUTM [phone] Problems Active Problems Provider Date Essential hypertension [...] Omeprazole 40mg Capsules DR Unknown Caltrate 600+D3 [id number] Tab lets 1 by mouth twice a [...] 09/27/2021 Inject/Drain Joint/Bursa Major C ompleted 09/05/2021 16806 Office/Outpatient Established Mo d MDM 30-39 Min Completed 09/05/2021 44108 X-Ray Knee Complete W/Obliques & Tunnel And/Or Standing Views Completed 09/05/2021 Inject/Drain Joint/Bursa Major C ompleted 07/17/2021 62316 Office/Outpatient Established Lo w MDM 20-29 Min Completed 06/05/2021 92017 Therapeutic Procedure, Each 15 M inutes Completed 06/03/2021 20845 Therapeutic Procedure, Each 15 M inutes Completed 05/31/2021 21350 Therapeutic Procedure, Each 15 M inutes Completed 05/29/2021 18578 Therapeutic Procedure, Each 15 M inutes Completed 05/28/2021 41401 Office/Outpatient Established Lo w MDM 20-29 Min Completed 05/23/2021 71589 Office/Outpatient Established Lo w MDM 20-29 Min Completed 05/17/2021 47002 Therapeutic Procedure, Each 15 M inutes Completed 05/15/2021 56502 Therapeutic Procedure, Each 15 M inutes Completed 05/13/2021 54471 Therapeutic Procedure, Each 15 M inutes Completed 05/10/2021 60335 Therapeutic Procedure, Each 15 M inutes Completed 05/10/2021 63586 Hot Or Cold Packs Completed 05/08/2021 70566 Therapeutic Procedure, Each 15 M inutes Completed 2021 31588 Therapeutic Procedure, Each 15 M inutes Completed 04/30/2021 74186 Therapeutic Procedure, Each 15 M inutes Completed 04/26/2021 80604 Therapeutic Procedure, Each 15 M inutes Completed 04/26/2021 01205 Hot Or Cold Packs Completed 04/24/2021 23391 Therapeutic Procedure, Each 15 M inutes Completed 04/23/2021 75937 Office/Outpatient Established Mo d MDM 30-39 Min Completed 04/23/2021 09235 X-Ray Shoulder Complete Complete d 04/23/2021 44174 X-Ray Spine Cervical 6 Or More V iews Completed 04/23/2021 02939 Inject/Drain Joint/Bursa Major C ompleted 04/19/2021 18000 Therapeutic Procedure, Each 15 M inutes Completed 04/15/2021 06103 Therapeutic Procedure, Each 15 M inutes Completed Medical Devices Description No Information Available Encounters Type Date Location Provider Dx Diagnosis Office Visit 10/11/2021 9:30a Lucina Ceja PA-C M17.12 Unilateral primary osteoarthritis, left knee Office Visit 10/04/2021 9:15a Lucina Ceja PA-C M17.12 Unilateral primary osteoarthritis, left knee Office Visit 09/27/2021 3:00p Lucina Ceja PA-C M17.12 Unilateral primary osteoarthritis, left knee Office Visit 09/05/2021 10:00a [place]elbert Ceja PA-C M17.12 Unilateral primary osteoarthritis, left knee Office Visit 07/17/2021 9:15a Lucina Ceja MD M17.11 Unilateral primary osteoarthritis, right knee M23.203 Derang of unsp medial menisc us due to old tear/inj, r knee Office Visit 05/23/2021 1:30p Rivesvillesundar Ceja MD Z47.89 Encounter for other orthopedic aftercare M23.203 Derang of unsp medial menisc us due to old tear/inj, r knee M17.11 Unilateral primary osteoarth ritis, right knee Office Visit 04/23/2021 11:15a Lucina Ceja PA-C M19.011 Primary osteoarthritis, right shoulder M75.41 Impingement syndrome of righ t shoulder M47.892 Other spondylosis, cervical region Assessments Date Code Description Provider 10/11/2021 M17.12 Unilateral primary osteoarthriti s, left knee Evelyne L. CHUCK CejaC 10/04/2021 M17.12 Unilateral primary osteoarthriti s, left knee Evelyne L. SHAZIA Ceja-C 09/27/2021 M17.12 Unilateral primary osteoarthriti s, left knee Evelyne L. CHUCK CejaC 09/05/2021 M17.12 Unilateral primary osteoarthriti s, left knee Evelyne L. CHUCK CejaC 07/17/2021 M17.11 Unilateral primary osteoarthriti s, right knee Benjamin Ceja MD 07/17/2021 M23.203 Derangement of unspe cified medial meniscus due to old tear or injury, right knee Benjamin Ceja MD 06/05/2021 Z47.89 Encounter for other orthopedic a hui [place] 06/03/2021 Z47.89 Encounter for other orthopedic a hui [place] 05/31/2021 Z47.89 Encounter for other orthopedic a hui [place] 05/29/2021 Z47.89 Encounter for other orthopedic a hui [place] 05/28/2021 M19.011 Primary osteoarthritis, right sh sarah Ceja, PA-C 05/28/2021 M75.41 Impingement syndrome of right sh sarah Ceja, PA-C 05/28/2021 M47.892 Other spondylosis, cervical yusef on Evelyne Ceja, PA-C 05/23/2021 Z47.89 Encounter for other orthopedic [...] orthopedic a ftercare Yolande Mcmahan. Abdifatah, MSPT 05/13/2021 Z47.89 Encounter for other orthopedic a ftercare Yolande M. Abdifatah, MSPT 05/10/2021 Z47.89 Encounter for other orthopedic a ftercare Yolande M. Abdifatah, MSPT 05/08/2021 Z47.89 Encounter for other orthopedic a ftercare Torie Scee P.T.A. 2021 Z47.89 Encounter for other orthopedic a ftercare Yolande M. Abdifatah, MSPT 04/30/2021 Z47.89 Encounter for other orthopedic a ftercare Yolande M. Vespa, MSPT 04/26/2021 Z47.89 Encounter for other orthopedic a ftercare Yolande M. Vespa, MSPT 04/24/2021 Z47.89 Encounter for other orthopedic a ftercare Yolande M. Alonzopa, MSPT 04/23/2021 M19.011 Primary osteoarthritis, right sh sarah Ceja, PA-C 04/23/2021 M75.41 Impingement syndrome of right sh sarah Ceja, PA-C 04/23/2021 M47.892 Other spondylosis, cervical yusef on Evelyne Ceja, PA-C 04/19/2021 Z47.89 Encounter for other orthopedic a ftercare Yolande McmahanVanessa Alonzoshazia, MSPT 04/15/2021 Z47.89 Encounter for other orthopedic a ftercare Torie Henderson P.T.A. Plan of Treatment No Information Available Functional Status Description No Information Available Mental Status Description No Information Available Referrals Refer to Dr Reason for Referral Status Appt Date TraLorenzostephanie Jauregui, PA-C Euflexxa left knee per medic are no auth req based on medical necessity, [facility] no [facility] req, per katjs s at r no auth req, passed to construction scheduler sw. Created [address] [place] [phone] Evelyne Ceja L, PA-C Euflexxa left knee per medic are no auth req based on medical necessity, per [facility] no auth req, per katjs s at [facility] no auth req, passed to construction scheduler sw. Created [address] [place] [phone] Evelyne Ceja, PA-C Euflexxa left knee per medic are no auth req based on medical necessity, per [facility] no auth req, per katjs s at r no auth req, passed to construction scheduler sw. Created [address] [place] [phone] Ki Diallo MD PT BASED ON MED. [facility] TO PT DEPT. NT Creat ed [address] [place] [phone] Ki Diallo MD PT BASED ON MED. [facility] TO PT DEPT. NT Creat ed [facility] [address] [address] [phone]
--- OUTSIDE RECORDS SUMMARY | 2021-10-27 10:23 | CCD | Continuity of Care Document ---
Author Author Rebecca CEJA PA-C Organization Unknown Address [address] [place] [address] Phone [phone] Care Team Providers Care It Business Systems Analyst Name Role Phone Juana Bang MD AUTM [phone] Problems Active Problems Provider Date Essential hypertension [...] Omeprazole 40mg Capsules DR Unknown Caltrate 600+D3 [id number] Tab lets 1 by mouth twice a [...] 09/27/2021 Inject/Drain Joint/Bursa Major C ompleted 09/05/2021 56459 Office/Outpatient Established Mo d MDM 30-39 Min Completed 09/05/2021 01208 X-Ray Knee Complete W/Obliques & Tunnel And/Or Standing Views Completed 09/05/2021 Inject/Drain Joint/Bursa Major C ompleted 07/17/2021 33419 Office/Outpatient Established Lo w MDM 20-29 Min Completed 06/05/2021 52597 Therapeutic Procedure, Each 15 M inutes Completed 06/03/2021 55773 Therapeutic Procedure, Each 15 M inutes Completed 05/31/2021 09466 Therapeutic Procedure, Each 15 M inutes Completed 05/29/2021 63603 Therapeutic Procedure, Each 15 M inutes Completed 05/28/2021 87713 Office/Outpatient Established Lo w MDM 20-29 Min Completed 05/23/2021 10143 Office/Outpatient Established Lo w MDM 20-29 Min Completed 05/17/2021 60298 Therapeutic Procedure, Each 15 M inutes Completed 05/15/2021 89264 Therapeutic Procedure, Each 15 M inutes Completed 05/13/2021 25171 Therapeutic Procedure, Each 15 M inutes Completed 05/10/2021 88447 Hot Or Cold Packs Completed 05/10/2021 79134 Therapeutic Procedure, Each 15 M inutes Completed 05/08/2021 91634 Therapeutic Procedure, Each 15 M inutes Completed 2021 42077 Therapeutic Procedure, Each 15 M inutes Completed 04/30/2021 79460 Therapeutic Procedure, Each 15 M inutes Completed 04/26/2021 89868 Therapeutic Procedure, Each 15 M inutes Completed 04/26/2021 24356 Hot Or Cold Packs Completed 04/24/2021 15074 Therapeutic Procedure, Each 15 M inutes Completed 04/23/2021 12614 X-Ray Shoulder Complete Complete d 04/23/2021 47372 Inject/Drain Joint/Bursa Major C ompleted 04/23/2021 32473 X-Ray Spine Cervical 6 Or More V iews Completed 04/23/2021 29698 Office/Outpatient Established Mo d MDM 30-39 Min Completed 04/19/2021 76141 Therapeutic Procedure, Each 15 M inutes Completed 04/15/2021 85956 Therapeutic Procedure, Each 15 M inutes Completed 04/12/2021 94144 Therapeutic Procedure, Each 15 M inutes Completed 04/10/2021 22043 Therapeutic Procedure, Each 15 M inutes Completed 04/08/2021 91031 Therapeutic Procedure, Each 15 M inutes Completed 04/04/2021 76329 Re-Eval Of PT Establ ished Plan Of Care 20Mins Face To Face PT/Fam Completed Medical Devices Description No Information Available [...] 06/05/2021 Z47.89 Encounter for other orthopedic [facility] f[facility]care [facility]21 Z47.89 Encounter for other orthopedic a ftercare [facility] 05/31/2021 Z47.89 Encounter for other orthopedic a hui [facility] 05/29/2021 Z47.89 Encounter for other orthopedic a ftercare Yolande Gardiner, [facility] 05/28/2021 M19.011 Primary osteoarthritis, right sh sarah Zarate CHUCK CejaC 05/28/2021 M75.41 Impingement syndrome of right sh sarah Zarate CHUCK CejaC 05/28/2021 M47.892 Other spondylosis, cervical yusef on Evelyne Zarate CHUCK CejaC 05/23/2021 Z47.89 Encounter for other orthopedic a ftercare Benjamin Ceja MD 05/23/2021 M23.203 Derangement of unspe cified medial meniscus due to old tear or injury, right knee Benjamin Ceja MD 05/23/2021 M17.11 Unilateral primary osteoarthriti s, right knee Benjamin Ceja MD 05/17/2021 Z47.89 Encounter for other orthopedic a ftercare Torie Scee P.T.A. 05/15/2021 Z47.89 Encounter for other orthopedic a ftercare Yolande McmahanVanessa [facility], [facility] 05/13/2021 Z47.89 Encounter for other orthopedic a ftercare [facility]azia, [facility] 05/10/2021 Z47.89 Encounter for other orthopedic a ftercare [facility]az[facility], [facility] 05/08/2021 Z47.89 Encounter for other orthopedic a ftercare Torie Scee P.T.A. 2021 Z47.89 Encounter for other orthopedic a ftercare Yolande Rosadoshazia, [facility] 04/30/2021 Z47.89 Encounter for other orthopedic a ftercare Yolande Rosadoshazia, [facility] 04/26/2021 Z47.89 Encounter for other orthopedic a ftercare Y[facility]ande Erick [facility]az[facility], [facility] 04/24/2021 Z47.89 Encounter for other orthopedic a ftercare [facility]azia, [facility] 04/23/2021 M19.011 Primary osteoarthritis, right sh sarah Zarate CHUCK CejaC 04/23/2021 M75.41 Impingement syndrome of right sh sarah Zarate CHUCK CejaC 04/23/2021 M47.892 Other spondylosis, cervical yusef on Evelyne Ceja PA-C 04/19/2021 Z47.89 Encounter for other orthopedic [...] other orthopedic a ftercare Torie Scee P.T.A. 04/08/2021 Z47.89 Encounter for other orthopedic a ftercare Torie Scee P.T.A. 04/05/2021 Z47.89 Encounter for other orthopedic a ftercare Benjamin Ceja MD 04/04/2021 Z47.89 Encounter for other orthopedic a ftercare Yolande Gardiner, [facility] Plan of Treatment Future Appointment(s):* 10/11/2021 9:30 am - Evelyne Ceja PA-C at [facility] Functional Status Description No Information Available Mental Status Description No Information Available Referrals Refer to Dr Reason for Referral Status Appt Date Evelyne Ceja PA-C Euflexxa left knee per medic are no auth req based on medical necessity, per elmira s at [facility] no auth req, per katleah s at [facility] no auth req, passed to chemical dependency attendant sw. Created [address] [place] [phone] Evelyne Ceja PA-C Euflexxa left knee per medic are no auth req based on medical necessity, per elmira s at [facility] no auth req, per katjs s at [facility] no auth req, passed to chemical dependency attendant sw. Created [address] [place] [phone] Evelyne Ceja PA-C Euflexxa left knee per medic are no auth req based on medical necessity, per elimra s at [facility] no auth req, per hilary s at [facility] no auth req, passed to chemical dependency attendant sw. Created [address] [place] [phone] Ki Diallo MD PT BASED ON MED. NECC TO PT DEPT. NT Creat ed [address] [place] [address], [address] [address] [phone] Ki Diallo MD PT BASED ON MED. NECC TO PT DEPT. NT Creat ed [address] [place] [address], [address] [phone] [phone]
--- OUTSIDE RECORDS SUMMARY | 2021-10-27 10:23 | CCD | Continuity of Care Document ---
Author Author Rebecca CEJA PA-C Organization Unknown Address [address] [place] [address] Phone [phone] Care Team Providers Care Ems Helicopter Pilot Name Role Phone Juana Bang MD AUTM [phone] Problems Active Problems Provider Date Essential hypertension [...] Omeprazole 40mg Capsules DR Unknown Caltrate 600+D3 [id number] Tab lets 1 by mouth twice a [...] 09/27/2021 Inject/Drain Joint/Bursa Major C ompleted 09/05/2021 69154 Office/Outpatient Established Mo d MDM 30-39 Min Completed 09/05/2021 Inject/Drain Joint/Bursa Major C ompleted 09/05/2021 61804 X-Ray Knee Complete W/Obliques & Tunnel And/Or Standing Views Completed 07/17/2021 69160 Office/Outpatient Established Lo w MDM 20-29 Min Completed 06/05/2021 66332 Therapeutic Procedure, Each 15 M inutes Completed 06/03/2021 87259 Therapeutic Procedure, Each 15 M inutes Completed 05/31/2021 09993 Therapeutic Procedure, Each 15 M inutes Completed 05/29/2021 53347 Therapeutic Procedure, Each 15 M inutes Completed 05/28/2021 65088 Office/Outpatient Established Lo w MDM 20-29 Min Completed 05/23/2021 48200 Office/Outpatient Established Lo w MDM 20-29 Min Completed 05/17/2021 95113 Therapeutic Procedure, Each 15 M inutes Completed 05/15/2021 37082 Therapeutic Procedure, Each 15 M inutes Completed 05/13/2021 48645 Therapeutic Procedure, Each 15 M inutes Completed 05/10/2021 48676 Therapeutic Procedure, Each 15 M inutes Completed 05/10/2021 67873 Hot Or Cold Packs Completed 05/08/2021 73842 Therapeutic Procedure, Each 15 M inutes Completed 2021 46364 Therapeutic Procedure, Each 15 M inutes Completed 04/30/2021 47280 Therapeutic Procedure, Each 15 M inutes Completed 04/26/2021 76910 Therapeutic Procedure, Each 15 M inutes Completed 04/26/2021 92944 Hot Or Cold Packs Completed 04/24/2021 93964 Therapeutic Procedure, Each 15 M inutes Completed 04/23/2021 53791 Office/Outpatient Established Mo d MDM 30-39 Min Completed 04/23/2021 17534 X-Ray Shoulder Complete Complete d 04/23/2021 61457 X-Ray Spine Cervical 6 Or More V iews Completed 04/23/2021 20781 Inject/Drain Joint/Bursa Major C ompleted 04/19/2021 39598 Therapeutic Procedure, Each 15 M inutes Completed 04/15/2021 15806 Therapeutic Procedure, Each 15 M inutes Completed 04/12/2021 52380 Therapeutic Procedure, Each 15 M inutes Completed 04/10/2021 42305 Therapeutic Procedure, Each 15 M inutes Completed 04/08/2021 84817 Therapeutic Procedure, Each 15 M inutes Completed 04/04/2021 82578 Re-Eval Of PT Establ ished Plan Of Care 20Mins Face To Face PT/Fam Completed 04/02/2021 05919 Arthroscopy Knee W/M eniscectomy Inc Chondroplasty (Med & Lateral) Completed Medical Devices Description No Information Available Encounters Type Date Location Provider Dx Diagnosis Office Visit 09/27/2021 3:00p Lucina Ceja PA-C M17.12 Unilateral primary osteoarthritis, left knee Office Visit 09/05/2021 10:00a Lucina Ceja PA-C M17.12 Unilateral primary osteoarthritis, left knee Office Visit 07/17/2021 9:15a [place] MD M17.11 Unilateral primary osteoarthritis, right knee M23.203 Derang of unsp medial menisc us due to old tear/inj, r knee Office Visit 05/23/2021 1:30p [place] Ceja MD Z47.89 Encounter for other orthopedic aftercare M23.203 Derang of unsp medial menisc us due to old tear/inj, r knee M17.11 Unilateral primary osteoarth ritis, right knee Office Visit 04/23/2021 11:15a [place] PA-C M19.011 Primary osteoarthritis, right shoulder M75.41 Impingement syndrome of righ t shoulder M47.892 Other spondylosis, cervical region Office Visit 04/11/2021 2:00p [place] [facility] PA-C Z47.89 Encounter for other orthopedic [...] Encounter for other orthopedic a hui [facility] 06/03/2021 Z47.89 Encounter for other orthopedic a hui Gardiner, [facility] 05/31/2021 Z47.89 Encounter for other orthopedic a hui Gardiner, [facility] 05/29/2021 Z47.89 Encounter for other orthopedic a hui Gardiner, [facility] 05/28/2021 M19.011 Primary osteoarthritis, right sh sarah Ceja PA-C 05/28/2021 M75.41 Impingement syndrome of right sh sarah Ceja PA-C 05/28/2021 M47.892 Other spondylosis, cervical yusef on Evelyne Zarate PARVEEN Ceja 05/23/2021 Z47.89 Encounter for [...] other orthopedic a ftercare Yolande MartirVanessa Gardiner, [facility] 05/08/2021 Z47.89 Encounter for other orthopedic a [...] Ceja 04/23/2021 M75.41 [facility] PARVEEN Ceja 04/23/2021 M47.892 Other spondylosis, cervical yusef on Evelyne Zarate PARVEEN Ceja 04/19/2021 Z47.89 Encounter for other orthopedic a ftercare Yolande Gardiner, [facility] 04/15/2021 Z47.89 Encounter for other orthopedic a ftercare Torie Scee P.T.A. 04/12/2021 Z47.89 Encounter for other orthopedic a ftercare Nurses 04/12/2021 Z47.89 Encounter for other orthopedic a ftercare [facility], [facility] 04/11/2021 Z47.89 Encounter for other orthopedic a ftercare Evelyne Ceja PA-C 04/10/2021 Z47.89 Encounter for other orthopedic a ftercare Torie Henderson P.T.A. 04/08/2021 Z47.89 Encounter for other orthopedic a ftercare Torie Henderson P.T.A. 04/05/2021 Z47.89 Encounter for other orthopedic a ftercare Benjamin Ceja MD 04/04/2021 Z47.89 Encounter for other orthopedic a ftercare Y[facility]ande [facility]iner, [facility] 04/02/2021 M23.204 Derangement of unspe cified medial meniscus due to old tear or injury, left knee Benjamin Ceja MD 04/02/2021 M23.242 Derangement of anter ior horn of lateral meniscus due to old tear or injury, left knee Benjamin Ceja MD 04/02/2021 M17.12 Unilateral primary osteoarthriti s, left knee Benjamin Ceja MD 03/28/2021 Z01.818 Encounter for other preprocedura l examination Benjamin Ceja MD 03/28/2021 Z01.818 Encounter for other preprocedura l examination Lab 03/28/2021 Z20.828 Contact with and (lewis spected) exposure to other viral communicable diseases Benjamin Ceja MD 03/28/2021 Z20.828 Contact with and (lewis spected) exposure to other viral communicable diseases Lab Plan of Treatment Future Appointment(s):* 10/11/2021 9:30 am - Evelyne Ceja PA-C at [place] * 10/04/2021 9:15 am - Evelyne Ceja PA-C at [place] Functional Status Description No Information Available Mental Status Description No Information Available Referrals Refer to Dr Reason for Referral Status Appt Date Evelyne Ceja PA-C Euflexxa left knee per medic are no auth req based on medical necessity, per elmira s at [facility] no auth req, per katjs s at r no auth req, passed to care team coordinator scheduler sw. Created [address] [place] [phone] FishEvelyne L, PA-C Euflexxa left knee per medic are no auth req based on medical necessity, per elmira s at [facility] no auth req, per katjs s at [facility] no auth req, passed to care team coordinator scheduler sw. Created [address] [place] [phone] Fish, Evelyne L, PA-C Euflexxa left knee per medic are no auth req based on medical necessity, per elmira s at [facility] no auth req, per katjs s at [facility] no auth req, passed to care team coordinator scheduler sw. Created [address] [place] [phone] Ki Diallo MD PT BASED ON MED. NECC TO PT DEPT. NT Creat ed [address] [place] [phone] Ki Diallo MD PT BASED ON MED. NECC TO PT DEPT. NT Creat ed [facility] [address] [phone]
--- OUTSIDE RECORDS SUMMARY | 2021-10-27 10:24 | CCD | Continuity of Care Document ---
Author Author Rebecca Bang M.D. Organization Unknown Address [address] [facility] [address] [place] [address] Phone [phone] Care Team Providers Care Director Strategy Name Role Phone Juana Bang MD AUTM [phone] Migdalia Elise MD AUTM [phone] Reese Ty OD AUTM [phone] Azra Ortiz JR, MD AUTM Sherrill Lubin MD AUTM [phone] Problems Active Problems Provider Date Osteoarthritis Juana Bang M.D. Onset: 1 Benign essential hypertension Juana Bang M.D. Onset: 09/14/2011 Pure hypercholesterolemia Juana Bang M.D. Onset: Essential hypertension Juana Bang M.D. Onset: 2014 Social History Type Date Description Comments Sex Unknown ETOH Use Denies alcohol use Tobacco Use Start: Unknown Patient has never smoked Allergies and adverse reactions Active Allergies Criticality Reaction | Severity Comments Date Sulfa Unable to assess criticality ITCHY 08/14/2010 Penicillins Unable to assess criticality Lips Swell, Ithcing 04/04/2015 Prevnar Unable to assess criticality allergic randi matitis After Shot 12/26/2015 Codeine Unable to assess criticality Hap pend Along Time Ago And Cant Remeber What Happens 11/05/2017 Medications Active Medications SIG Qnty Indications Ordering Provide r Date Vitamin D3 1000Unit Tablets 3 qd PO Juana Bang M.D. 03/08/2021 Aspercreme W/Lidocaine 4% Cream 2-4x/d as directed 30gm Juana Bang M.D. 12/04/19 21 Lisinopril 40mg Tablets 1 by mouth every night at bedtime 90tabs Juana Bang M.D. [address] 1 by mouth every day prn 90caps Juana Bang M.D. 06/12/20 20 Tylenol 8 Hour Arthritis Pain 650mg Tablets ER 1-3x/day as needed Marixa Tilley 01/05/2019 Rosuvastatin Calcium 5mg Tablets 1 by mouth every day 90tabs Juana Bang M.D. 11/24/19 19 Caltrate 600+D3 Soft 600mg 1 daily Nurse #2 10/23/2016 Sodium Sulfacetamide/Sulfur Green 10-5% Cream use as directed 114gm Juana Bang M.D. 0 08/18/2016 Biotin 2500mcg Capsules 2 po qd for hair loss Juana Bang M.D. 01/26/20 15 Hydrocortisone Valerate 0.2% Cream Apply To Affected Area prn 15Gram Juana Bang M.D. 11/2012 Effexor XR 75mg Caps ER 24HR take three capsules by mouth every day 270caps Martir Tilley 03/29/2013 Zovirax 5% Cream use 5x'daily for 7 days then as needed 1Tube Juana Bang M.D. 01/19/20 12 Gabapentin 600mg Tablets take 1 tablet by mouth 2 - 3 times per day 90tabs Marixa Tilley Clindamycin HCL 150mg Capsules 4 capsules prior to dental procedure 4caps Marixa Tilley Medications Administered in Office Medication SIG Qnty Indications Ordering Provider Date Covid-19 vaccine, Unspecified Inj ection Unknown 01/14/2021 Covid-19 vaccine, Unspecified Inj ection Unknown 12/17/2020 Administration Of Flu Vaccine Inj ection Juana Bang M.D. 08/24/20 19 Administration Of Flu Vaccine Inj eugenie Bang M.D. 08/24/20 17 Administration Of Flu Vaccine Inj jadenion Juana Bang M.D. 08/18/20 16 Administration Of Flu Vaccine Inj eugenie Bang M.D. 09/01/20 14 Immunizations CPT Code Status Date Vaccine Lot # U-Flu Given 08/14/2021 Influenza,Unspecified U-Flu Given 08/04/2020 Influenza,Unspecified 85239 Given 08/24/2019 Influenza Vaccin e Quadrivalent Preser/Antibiotic Free Im Use [id number] U-Flu Given 08/18/2018 Influenza,Unspecified 60458 Given 06/17/2018 Shingrix 73489 Given 2018 Tetanus/Diptheria(Td)Toxoids Preservative Free [id number] 99039 Given 02/10/2018 Shingrix 26140 Given 08/24/2017 Influenza Vaccin e Quadrivalent Preser/Antibiotic Free Im Use 359886 Q2037 Given 08/18/2016 Fluvirin Virus Vaccine 46837 01 U-PneuC Given 12/12/2015 Prevnar 13 Q2037 Given 09/01/2014 Fluvirin Virus Vaccine 92017 21 13682 Given 06/07/2014 Pneumovax 23 [id number] Q2037 Given 09/09/2013 Fluvirin Virus Vaccine 59384 01 Q2037 Given 09/23/2012 Fluvirin Virus Vaccine 71800 01 Q2037 Given 09/04/2011 Fluvirin Virus Vaccine 83062 Given 11/11/2010 Zoster Vaccine 77760 Given 10/15/2010 Adacel- Tetanus Diphtheria P ertussis 15249 Given 08/27/2010 Influenza Virus Vaccine 13380 Given 09/20/2009 Influenza Virus Vaccine Vital Signs Date Vital Result Comment 08/28/2021 9:40am BP Systolic 142 mmHg RT Arm BP Diastolic 80 mmHg RT Arm BP Systolic Recheck 126 mmHg BP Diastolic Recheck 84 mmHg Heart Rate 80 /min Height 62.50 inches 5'2.50" Weight 184.12 lb verbal BMI (Body Mass Index) 33.1 kg/m2 05/28/2021 11:11am BP Systolic 150 mmHg BP Diastolic 86 mmHg BP Systolic Recheck 130 mmHg BP Diastolic Recheck 82 mmHg Heart Rate 84 /min Height 62.50 inches 5'2.50" Weight 186.38 lb BMI (Body Mass Index) 33.5 kg/m2 Results Test Acquired Date Facility Test Result H/L Range Note Basic Metabolic Panel 08/28/2021 [facility] kathy mistry Submarine Operator: Dr Michel Garcia [place], [place] [id number] [phone] Glucose 86 mg/dL 74 - 99 1 BUN 22 mg/dL High 7 - 18 Creatinine 1.0 mg/dL 0.6 - 1.3 Sodium 146 mEq/L High 136 - 145 Potassium 4.2 mEq/L 3.5 - 5.1 Chloride 108 mEq/L High 98 - 107 Carbon Dioxide 29 mEq/L 21 - 32 Calcium 9.5 mg/dL 8.5 - 10.1 GFR 55 mL/min Low >60 GFR >= 60 mL/min >60 2 Basic Metabolic Panel 05/23/2021 [facility] kathy mistry Submarine Operator: [place] [address] [phone] Glucose 103 mg/dL High 74 - 99 3 BUN 21 mg/dL High 7 - 18 Creatinine 1.1 mg/dL 0.6 - 1.3 Sodium 145 mEq/L 136 - 145 Potassium 3.9 mEq/L 3.5 - 5.1 Chloride 108 mEq/L High 98 - 107 Carbon Dioxide 34 mEq/L High 21 - 32 Calcium 8.9 mg/dL 8.5 - 10.1 GFR 49 mL/min Low >60 GFR 59 mL/min Low >60 4 Complete Blood Count 03/07/2021 [facility] kathy velasquez Submarine Operator: [place] [address] [phone] WBC 8.1 x10*3/UL 4.1 - 10.9 RBC 4.60 x10*6/UL 4.20 - 6.30 Hemoglobin 13.5 g/dL 12.0 - 18.0 Hematocrit 40.6 % 37.0 - 51.0 MCV 88.2 fL 80.0 - 97.0 MCH 29.3 pg 26.0 - 32.0 MCHC 33.2 g/dL 31.0 - 38.0 RDW 13.5 % 11.6 - 13.7 PLT 204 x10*3/UL 140 - 440 MPV 8.7 FL 7.8 - 11.0 Lymph % 19.3 % 10.0 - 58.5 Mid % 5.1 % 1.7 - 9.3 Neut % 75.6 % 37.0 - 92.0 Lymph # 1.5 x10*3/UL 0.6 - 4.1 Mid # 0.5 x10*3/UL 0.1 - 0.6 Neut # 6.1 x10*3/UL 2.0 - 7.8 Basic Metabolic Panel 03/07/2021 [facility] Submarine Operator: [place] [address] [phone] Glucose 78 mg/dL 74 - 99 5 BUN 26 mg/dL High 7 - 18 Creatinine 1.0 mg/dL 0.6 - 1.3 Sodium 142 mEq/L 136 - 145 Potassium 4.5 mEq/L 3.5 - 5.1 Chloride 106 mEq/L 98 - 107 Carbon Dioxide 31 mEq/L 21 - 32 Calcium 9.2 mg/dL 8.5 - 10.1 GFR 55 mL/min Low >60 GFR >= 60 mL/min >60 6 Laboratory test finding 03/07/2021 [facility] Submarine Operator: [place] [address] [phone] Vitamin D 25-Hydroxy 61.4 ng/ml 24.0 - 80.0 7 1 100-125 mg/dL PRE-DIABET ES/FASTING >126 mg/dL DIABETES/FASTING 2 CHRONIC KIDNEY DISEASE STAGI NG PER NKF STAGE I & II GFR >= 60 NORMAL TO MILDLY DECREASED STAGE III GFR 30-59 MODERATELY DECREASED STAGE IV GFR 15-29 SEVERELY DECREASED STAGE V GFR <15 VERY LITTLE GFR LEFT ESRD GFR <15 ON CHARTER PILOT 3 100-125 mg/dL PRE-DIABET ES/FASTING >126 mg/dL DIABETES/FASTING 4 CHRONIC KIDNEY DISEASE STAGI NG PER NKF STAGE I & II GFR >= 60 NORMAL TO MILDLY DECREASED STAGE III GFR 30-59 MODERATELY DECREASED STAGE IV GFR 15-29 SEVERELY DECREASED STAGE V GFR <15 VERY LITTLE GFR LEFT ESRD GFR <15 ON CHARTER PILOT 5 100-125 mg/dL PRE-DIABET ES/FASTING >126 mg/dL DIABETES/FASTING 6 CHRONIC KIDNEY DISEASE STAGI NG PER NKF STAGE I & II GFR >= 60 NORMAL TO MILDLY DECREASED STAGE III GFR 30-59 MODERATELY DECREASED STAGE IV GFR 15-29 SEVERELY DECREASED STAGE V GFR <15 VERY LITTLE GFR LEFT ESRD GFR <15 ON CHARTER PILOT 7 This test was performed wally walker [employer] Vitamin D immunoassay kit. Values obtained with different assay methods should not be used interchangeably. Procedures Date Code Description Status 05/28/2021 57967 Office/Outpatient Established Mo d MDM 30-39 Min Completed 03/07/2021 10386 Office/Outpatient Established Mo d MDM 30-39 Min Completed 03/07/2021 25790 EKG/Interpretation & Report Comp leted 01/24/2021 [id number] Mammogram Completed 01/15/2021 [id number] Bone Mineral Density Test Comple telly 02/14/2019 [id number] Mammogram Completed 12/07/2018 [id number] Bone Mineral Density Test Comple [facility] 02/08/2018 [id number] Mammogram Completed 02/04/2017 [id number] Mammogram Completed 01/14/2016 [id number] Mammogram Completed 01/01/2015 [id number] Mammogram Completed 12/14/2014 [id number] Colonoscopy Completed 12/09/2013 [id number] Mammogram Completed 01/31/2013 [id number] Bone Mineral Density Test Comple telly 12/10/2012 [id number] Mammogram Completed 11/05/2011 [id number] Mammogram Completed 12/31/2010 [id number] Bone Mineral Density Test Comple [facility] 10/22/2010 [id number] Mammogram Completed 09/26/2004 [id number] Colonoscopy Completed 07/21/2003 [id number] Bone Mineral Density Test [facility] 02/13/1998 [id number] Bone Mineral Density Test Comple telly 02/09/1998 [id number] Bone Mineral Density Test Comple [facility] Medical Devices Description No Information Available Encounters Type Date Location Provider Dx Diagnosis Office Visit 05/28/2021 11:15a [facility] M[facility] M19.90 Unspecified osteoarthritis, unspecified site I12.9 Hypertensive chronic kidney disease w stg 1-4/unsp chr kdny N18.31 Chronic kidney disease, stag e 3a F32.89 Other specified depressive e pisodes F41.9 Anxiety disorder, unspecifie d M85.80 Oth disrd of bone density an d structure, unspecified site Z68.33 Body mass index [BMI] 33.0-3 3.9, adult E66.09 Other obesity due to excess calories E78.00 Pure hypercholesterolemia, u nspecified Office Visit 03/07/2021 10[facility]a [facility] Z01.810 Encounter for preprocedural cardiovascular examination M23.222 Derang of post horn of media l mensc d/t old tear/inj, l knee I12.9 Hypertensive chronic kidney disease w stg 1-4/unsp chr kdny N18.31 Chronic kidney disease, stag e 3a F32.89 Other specified depressive e pisodes M54.5 Low back pain F41.9 Anxiety disorder, unspecifie d I34.1 Nonrheumatic mitral (valve) prolapse M85.80 Oth disrd of bone density an d structure, unspecified site K30 Functional dyspepsia Assessments Date Code Description Provider 08/28/2021 M19.90 Unspecified osteoarthritis, unsp ecified site Juana Bang M.D. 08/28/2021 I12.9 Hypertensive chronic kidney disease with stage 1 through stage 4 chronic kidney disease, or unspecified chronic kidney disease Juana Bang M.D. 08/28/2021 N18.31 Chronic kidney disease, stage 3a Juana Bang M.D. 08/28/2021 F32.89 Other specified depressive episo andres Juana Bang M.D. 08/28/2021 F41.9 Anxiety disorder, unspecified Andreina Bang M.D. 08/28/2021 E66.09 Other obesity due to excess mali logan Juana Bang M.D. 08/28/2021 E78.00 Pure hypercholesterolemia, unspe cified Juana Bang M.D. 05/28/2021 M19.90 Unspecified osteoarthritis, unsp ecified site Juana Bang M.D. 05/28/2021 I12.9 Hypertensive chronic kidney disease with stage 1 through stage 4 chronic kidney disease, or unspecified chronic kidney disease Juana Bang M.D. 05/28/2021 N18.31 Chronic kidney disease, stage 3a Juana Bang M.D. 05/28/2021 F32.89 Other specified depressive episo andres Juana Bang M.D. 05/28/2021 F41.9 Anxiety disorder, unspecified Andreina Bang M.D. 05/28/2021 M85.80 Other specified diso rders of bone density and structure, unspecified site Juana Bang M.D. 05/28/2021 Z68.33 Body mass index [BMI] 33.0-33.9, adult Juana Bang M.D. 05/28/2021 E66.09 Other obesity due to excess mali logan Juana Bang M.D. 05/28/2021 E78.00 Pure hypercholesterolemia, unspe cified Juana Bang M.D. 05/23/2021 I12.9 Hypertensive chronic kidney disease with stage 1 through stage 4 chronic kidney disease, or unspecified chronic kidney disease Juana Bang M.D. 05/23/2021 I12.9 Hypertensive chronic kidney disease with stage 1 through stage 4 chronic kidney disease, or unspecified chronic kidney disease Lab Schedule 05/23/2021 N18.31 Chronic kidney disease, stage 3a Juana Bang M.D. 05/23/2021 N18.31 Chronic kidney disease, stage 3a Lab Schedule 03/07/2021 Z01.810 Encounter for preprocedural card iovascular examination Juana Bang M.D. 03/07/2021 M23.222 Derangement of poste rior horn of medial meniscus due to old tear or injury, left knee Juana Bang M.D. 03/07/2021 I12.9 Hypertensive chronic kidney disease with stage 1 through stage 4 chronic kidney disease, or unspecified chronic kidney disease Juana Bang M.D. 03/07/2021 N18.31 Chronic kidney disease, stage 3a Juana Bang M.D. 03/07/2021 F32.89 Other specified depressive episo andres Juana Bang M.D. 03/07/2021 M54.5 Low back pain Juana gallegos M.D. 03/07/2021 F41.9 Anxiety disorder, unspecified Andreina Bang M.D. 03/07/2021 I34.1 Nonrheumatic mitral (valve) prol apse Juana Bang M.D. 03/07/2021 M85.80 Other specified diso rders of bone density and structure, unspecified site Juana Bang M.D. 03/07/2021 K30 Functional dyspepsia Juana Kulkarni M.D. Plan of Treatment Future Appointment(s):* 12/03/2021 7:50 am - Lab Schedule at [facility] * 12/04/2021 10:30 am - [facility] * 12/04/2021 10:00 am - Nurse #2 at [facility] 08/28/2021 - Juana Bang M.D.* M19.90 Unspecified osteoarthritis, unspecified site * I12.9 Hypertensive chronic kidney disease with stage 1 through stage 4 chronic kidney disease, or unspecified chronic kidney disease * N18.31 Chronic kidney disease, stage 3a * F32.89 Other specified depressive episodes * F41.9 Anxiety disorder, unspecified * E66.09 Other obesity due to excess calories * E78.00 Pure hypercholesterolemia, unspecified Functional Status Description No Information Available Mental Status Description No Information Available Referrals Description No Information Available
--- OUTSIDE RECORDS SUMMARY | 2021-10-27 10:24 | CCD | Continuity of Care Document ---
Author Author Rebecca Bang M.D. Organization Unknown Address [address] [facility] [address] [place] [address] Phone [phone] Care Team Providers Care Aircraft General Repair Mechanic Name Role Phone Juana Bang MD AUTM [phone] Migdalia Elise MD AUTM [phone] Reese Ty OD AUTM [phone] Azra Ortiz JR, MD AUTM [phone] Shrerill Lubin MD AUTM [phone] Problems Active Problems Provider Date Osteoarthritis Juana [...] Given 08/14/2021 Influenza,Unspecified U-Flu Given 08/04/2020 Influenza,Unspecified 33848 Given 08/24/2019 Influenza Vaccin e Quadrivalent Preser/Antibiotic Free Im Use [id number] U-Flu Given 08/18/2018 Influenza,Unspecified 80525 Given 06/17/2018 Shingrix 76987 Given 2018 Tetanus/Diptheria(Td)Toxoids Preservative Free [id number] 96871 Given 02/10/2018 Shingrix 44059 Given 08/24/2017 Influenza Vaccin e Quadrivalent Preser/Antibiotic Free Im Use [id number] Q2037 Given 08/18/2016 Fluvirin Virus Vaccine 51120 01 U-PneuC Given 12/12/2015 Prevnar 13 Q2037 Given 09/01/2014 Fluvirin Virus Vaccine 24386 21 51176 Given 06/07/2014 Pneumovax 23 [id number] Q2037 Given 09/09/2013 Fluvirin Virus Vaccine 73226 01 Q2037 Given 09/23/2012 Fluvirin Virus Vaccine 57180 01 Q2037 Given 09/04/2011 Fluvirin Virus Vaccine 03214 Given 11/11/2010 Zoster Vaccine 43184 Given 10/15/2010 Adacel- Tetanus Diphtheria P ertussis 96604 Given 08/27/2010 Influenza Virus Vaccine 44701 Given 09/20/2009 Influenza Virus Vaccine Vital Signs [...] H/L Range Note Basic Metabolic Panel 08/28/2021 [facility] kathy mistry Gold Layer: Dr Michel Garcia [place], [place] [id number] [phone] Glucose 86 mg/dL 74 - 99 1 [...] mL/min >60 2 Basic Metabolic Panel 05/23/2021 [facility] kathy mistry Gold Layer: [place] [address] [phone] Glucose 103 mg/dL High 74 - 99 [...] Low >60 4 Complete Blood Count 03/07/2021 [facility] kathy velasquez Gold Layer: [place] [address] [phone] WBC 8.1 x10*3/UL 4.1 - 10.9 RBC [...] 2.0 - 7.8 Basic Metabolic Panel 03/07/2021 [facility] Gold Layer: [place] [address] [phone] Glucose 78 mg/dL 74 - 99 5 [...] mL/min >60 6 Laboratory test finding 03/07/2021 [facility] Gold Layer: [place] [address] [phone] Vitamin D 25-Hydroxy 61.4 ng/ml 24.0 - 80.0 7 1 100-125 mg/dL PRE-DIABET ES/FASTING >126 mg/dL DIABETES/FASTING 2 CHRONIC KIDNEY DISEASE STAGI NG PER NKF STAGE I & II GFR >= 60 NORMAL TO MILDLY DECREASED STAGE III GFR 30-59 MODERATELY DECREASED STAGE IV GFR 15-29 SEVERELY DECREASED STAGE V GFR <15 VERY LITTLE GFR LEFT ESRD GFR <15 ON RESIDENTIAL SALES EXECUTIVE 3 100-125 mg/dL PRE-DIABET ES/FASTING >126 mg/dL DIABETES/FASTING 4 CHRONIC KIDNEY DISEASE STAGI NG PER NKF STAGE I & II GFR >= 60 NORMAL TO MILDLY DECREASED STAGE III GFR 30-59 MODERATELY DECREASED STAGE IV GFR 15-29 SEVERELY DECREASED STAGE V GFR <15 VERY LITTLE GFR LEFT ESRD GFR <15 ON RESIDENTIAL SALES EXECUTIVE 5 100-125 mg/dL PRE-DIABET ES/FASTING >126 mg/dL DIABETES/FASTING 6 CHRONIC KIDNEY DISEASE STAGI NG PER NKF STAGE I & II GFR >= 60 NORMAL TO MILDLY DECREASED STAGE III GFR 30-59 MODERATELY DECREASED STAGE IV GFR 15-29 SEVERELY DECREASED STAGE V GFR <15 VERY LITTLE GFR LEFT ESRD GFR <15 ON RESIDENTIAL SALES EXECUTIVE 7 This test was performed wally walker [employer] Vitamin D immunoassay kit. Values obtained with different assay methods should not be used interchangeably. Procedures Date Code Description Status 05/28/2021 04075 Office/Outpatient Established Mo d MDM 30-39 Min Completed 03/07/2021 68847 Office/Outpatient Established Mo d MDM 30-39 Min Completed 03/07/2021 93916 EKG/Interpretation & Report Comp leted 01/24/2021 [id number] Mammogram Completed 01/15/2021 [id number] Bone Mineral Density Test Comple telly 02/14/2019 [id number] Mammogram Completed 12/07/2018 [id number] Bone Mineral Density Test Comple [facility] 02/08/2018 [id number] Mammogram Completed 02/04/2017 [id number] Mammogram Completed 01/14/2016 [id number] Mammogram Completed 01/01/2015 [id number] Mammogram Completed 12/14/2014 [id number] Colonoscopy Completed 12/09/2013 [id number] Mammogram Completed 01/31/2013 [id number] Bone Mineral Density Test Comple telly 12/10/2012 [id number] Mammogram Completed 11/05/2011 [id number] Mammogram Completed 12/31/2010 [id number] Bone Mineral Density Test Comple [facility] 10/22/2010 [id number] Mammogram Completed 09/26/2004 [id number] Colonoscopy Completed 07/21/2003 [id number] Bone Mineral Density Test [facility] 02/13/1998 [id number] Bone Mineral Density Test Comple telly 02/09/1998 [id number] Bone Mineral Density Test Comple [facility] Medical Devices Description No Information Available Encounters [...] hypercholesterolemia, u nspecified Office Visit 03/07/2021 10[facility] Z01.810 Encounter for preprocedural cardiovascular [...] 12/03/2021 7:50 am - Lab Schedule at [facility] * 12/04/2021 10:30 am - Ju[facility] * 12/04/2021 10:00 am - Nurse #2 at [facility] 08/28/2021 - Juana Bang M.D.* M19.90 [...]
--- OUTSIDE RECORDS SUMMARY | 2021-10-27 10:24 | CCD | Continuity of Care Document ---
Author Author Rebecca Bang M.D. Organization Unknown Address [address] [facility] [address] [place] [address] Phone [phone] Care Team Providers Care Gas Turbine Powerplant Mechanic Helper Name Role Phone Juana Bang MD AUTM [phone] Migdalia Elise MD AUTM [phone] Reese Ty OD AUTM [phone] Azra Ortiz JR, MD AUTM Sherrill Lubin MD AUTM [phone] Problems Active Problems Provider Date Osteoarthritis Juana [...] 7 days then as needed 1Tube Juana aBng M.D. 01/19/20 12 Gabapentin 600mg Tablets take [...] Given 08/14/2021 Influenza,Unspecified U-Flu Given 08/04/2020 Influenza,Unspecified 26154 Given 08/24/2019 Influenza Vaccin e Quadrivalent Preser/Antibiotic Free Im Use 520277 U-Flu Given 08/18/2018 Influenza,Unspecified 35882 Given 06/17/2018 Shingrix 97462 Given 2018 Tetanus/Diptheria(Td)Toxoids Preservative Free [id number] 08779 Given 02/10/2018 Shingrix 67558 Given 08/24/2017 Influenza Vaccin e Quadrivalent Preser/Antibiotic Free Im Use 986472 Q2037 Given 08/18/2016 Fluvirin Virus Vaccine 65706 01 U-PneuC Given 12/12/2015 Prevnar 13 Q2037 Given 09/01/2014 Fluvirin Virus Vaccine 18138 21 94319 Given 06/07/2014 Pneumovax 23 [id number] Q2037 Given 09/09/2013 Fluvirin Virus Vaccine 75360 01 Q2037 Given 09/23/2012 Fluvirin Virus Vaccine 68447 01 Q2037 Given 09/04/2011 Fluvirin Virus Vaccine 78253 Given 11/11/2010 Zoster Vaccine 64574 Given 10/15/2010 Adacel- Tetanus Diphtheria P ertussis 49790 Given 08/27/2010 Influenza Virus Vaccine 14566 Given 09/20/2009 Influenza Virus Vaccine Vital Signs [...] H/L Range Note Basic Metabolic Panel 08/28/2021 [facility] kathy mistry Brewery Technician: Dr Michel Garcia [place], [place] [id number] [phone] Glucose 86 mg/dL 74 - 99 1 [...] mL/min >60 2 Basic Metabolic Panel 05/23/2021 [facility] kathy mistry Brewery Technician: [place] [address] [phone] Glucose 103 mg/dL High 74 - 99 [...] Low >60 4 Complete Blood Count 03/07/2021 [facility] kathy velasquez Brewery Technician: [place] [address] [phone] WBC 8.1 x10*3/UL 4.1 - 10.9 RBC [...] 2.0 - 7.8 Basic Metabolic Panel 03/07/2021 [facility] Brewery Technician: [place] [address] [phone] Glucose 78 mg/dL 74 - 99 5 [...] mL/min >60 6 Laboratory test finding 03/07/2021 [facility] Brewery Technician: [place] [address] [phone] Vitamin D 25-Hydroxy 61.4 ng/ml 24.0 - 80.0 7 1 100-125 mg/dL PRE-DIABET ES/FASTING >126 mg/dL DIABETES/FASTING 2 CHRONIC KIDNEY DISEASE STAGI NG PER NKF STAGE I & II GFR >= 60 NORMAL TO MILDLY DECREASED STAGE III GFR 30-59 MODERATELY DECREASED STAGE IV GFR 15-29 SEVERELY DECREASED STAGE V GFR <15 VERY LITTLE GFR LEFT ESRD GFR <15 ON TAFE TEACHER 3 100-125 mg/dL PRE-DIABET ES/FASTING >126 mg/dL DIABETES/FASTING 4 CHRONIC KIDNEY DISEASE STAGI NG PER NKF STAGE I & II GFR >= 60 NORMAL TO MILDLY DECREASED STAGE III GFR 30-59 MODERATELY DECREASED STAGE IV GFR 15-29 SEVERELY DECREASED STAGE V GFR <15 VERY LITTLE GFR LEFT ESRD GFR <15 ON TAFE TEACHER 5 100-125 mg/dL PRE-DIABET ES/FASTING >126 mg/dL DIABETES/FASTING 6 CHRONIC KIDNEY DISEASE STAGI NG PER NKF STAGE I & II GFR >= 60 NORMAL TO MILDLY DECREASED STAGE III GFR 30-59 MODERATELY DECREASED STAGE IV GFR 15-29 SEVERELY DECREASED STAGE V GFR <15 VERY LITTLE GFR LEFT ESRD GFR <15 ON TAFE TEACHER 7 This test was performed wally walker [employer] Vitamin D immunoassay kit. Values obtained with different assay methods should not be used interchangeably. Procedures Date Code Description Status 05/28/2021 37742 Office/Outpatient Established Mo d MDM 30-39 Min Completed 03/07/2021 31945 Office/Outpatient Established Mo d MDM 30-39 Min Completed 03/07/2021 09284 EKG/Interpretation & Report Comp leted 01/24/2021 [id number] Mammogram Completed 01/15/2021 [id number] Bone Mineral Density Test Comple telly 02/14/2019 [id number] Mammogram Completed 12/07/2018 [id number] Bone Mineral Density Test Comple [facility] 02/08/2018 [id number] Mammogram Completed 02/04/2017 [id number] Mammogram Completed 01/14/2016 [id number] Mammogram Completed 01/01/2015 [id number] Mammogram Completed 12/14/2014 [id number] Colonoscopy Completed 12/09/2013 [id number] Mammogram Completed 01/31/2013 [id number] Bone Mineral Density Test Comple telly 12/10/2012 [id number] Mammogram Completed 11/05/2011 [id number] Mammogram Completed 12/31/2010 [id number] Bone Mineral Density Test Comple [facility] 10/22/2010 [id number] Mammogram Completed 09/26/2004 [id number] Colonoscopy Completed 07/21/2003 [id number] Bone Mineral Density Test [facility] 02/13/1998 [id number] Bone Mineral Density Test Comple telly 02/09/1998 [id number] Bone Mineral Density Test Comple [facility] Medical Devices Description No Information Available [...] hypercholesterolemia, u nspecified Office Visit 03/07/2021 10:[facility]a [facility] Z01.810 Encounter for preprocedural cardiovascular [...] M.D. 08/28/2021 E78.00 Pure hypercholesterolemia, unspe cified Jauna Bang M.D. 05/28/2021 M19.90 Unspecified osteoarthritis, unsp [...] 12/03/2021 7:50 am - Lab Schedule at [facility] * 12/04/2021 10:30 am - Juana [facility] * 12/04/2021 10:00 am - Nurse #2 at [facility] 08/28/2021 - Juana Bang M.D.* [...]
--- OUTSIDE RECORDS SUMMARY | 2021-10-27 10:24 | CCD | Continuity of Care Document ---
Author Author Rebecca CEJA PA-C Organization Unknown Address [address] [place] [address] Phone [phone] Care Team Providers Care Fretted Instruments Inspector Name Role Phone Juana Bang MD AUTM [phone] Problems Active Problems Provider Date Essential hypertension [...] 021 Euflexxa 20mg/2ML Soln Prefill Syr edgar ariel knee #1 bms/sw 10/26/2020 ariel knee #2 bms/bc 11/02/2020 ariel knee #3 BMS/Ag 11/09/2020, Vitaly Will MD 10/26/2020 Lisinopril 20mg Tablets [...] Omeprazole 40mg Capsules DR Unknown Caltrate 600+D3 [id number]-Ileo Tab lets 1 by mouth twice a [...] Information Available Procedures Date Code Description Status 09/05/2021 87751 X-Ray Knee Complete W/Obliques & Tunnel And/Or Standing Views Completed 09/05/2021 81375 Office/Outpatient Established Mo d MDM 30-39 Min Completed 09/05/202118260 Inject/Drain Joint/Bursa Major C ompleted 07/17/2021 02386 Office/Outpatient Established Lo w MDM 20-29 Min Completed 06/05/2021 37529 Therapeutic Procedure, Each 15 M inutes Completed 06/03/2021 92852 Therapeutic Procedure, Each 15 M inutes Completed 05/31/2021 98658 Therapeutic Procedure, Each 15 M inutes Completed 05/29/2021 24442 Therapeutic Procedure, Each 15 M inutes Completed 05/28/2021 74956 Office/Outpatient Established Lo w MDM 20-29 Min Completed 05/23/2021 94383 Office/Outpatient Established Lo w MDM 20-29 Min Completed 05/17/2021 99472 Therapeutic Procedure, Each 15 M inutes Completed 05/15/2021 93586 Therapeutic Procedure, Each 15 M inutes Completed 05/13/2021 91803 Therapeutic Procedure, Each 15 M inutes Completed 05/10/2021 64777 Therapeutic Procedure, Each 15 M inutes Completed 05/10/2021 42418 Hot Or Cold Packs Completed 05/08/2021 12930 Therapeutic Procedure, Each 15 M inutes Completed 2021 00771 Therapeutic Procedure, Each 15 M inutes Completed 04/30/2021 19634 Therapeutic Procedure, Each 15 M inutes Completed 04/26/2021 99852 Therapeutic Procedure, Each 15 M inutes Completed 04/26/2021 53485 Hot Or Cold Packs Completed 04/24/2021 65795 Therapeutic Procedure, Each 15 M inutes Completed 04/23/2021 52306 Office/Outpatient Established Mo d MDM 30-39 Min Completed 04/23/2021 27787 X-Ray Shoulder Complete Complete d 04/23/2021 77419 X-Ray Spine Cervical 6 Or More V iews Completed 04/23/2021 76259 Inject/Drain Joint/Bursa Major C ompleted 04/19/2021 52173 Therapeutic Procedure, Each 15 M inutes Completed 04/15/2021 18998 Therapeutic Procedure, Each 15 M inutes Completed 04/12/2021 74015 Therapeutic Procedure, Each 15 M inutes Completed 04/10/2021 36662 Therapeutic Procedure, Each 15 M inutes Completed 04/08/2021 18320 Therapeutic Procedure, Each 15 M inutes Completed 04/04/2021 02503 Re-Eval Of PT Establ ished Plan Of Care 20Mins Face To Face PT/Fam Completed 04/02/2021 95775 Arthroscopy Knee W/M eniscectomy Inc Chondroplasty (Med & Lateral) Completed 03/27/2021 45276 Manual Therapy Each 15 Minutes C ompleted 03/27/2021 87342 Therapeutic Procedure, Each 15 M inutes Completed 03/25/2021 90316 Manual Therapy Each 15 Minutes C ompleted 03/25/2021 53608 Therapeutic Procedure, Each 15 M inutes Completed Medical Devices Description No Information Available Encounters Type Date Location Provider Dx Diagnosis Office Visit 09/05/2021 10:00a Lucina Ceja PA-C [...] orthopedic aftercare Assessments Date Code Description Provider 09/05/2021 M17.12 Unilateral primary osteoarthriti s, left knee Evelyne Ceja PA-C 07/17/2021 M17.11 Unilateral primary osteoarthriti s, right knee Benjamin Ceja MD 07/17/2021 M23.203 Derangement of unspe cified medial meniscus due to old tear or injury, right knee Benjamin Ceja MD 06/05/2021 Z47.89 Encounter for other orthopedic a hui [facility] 06/03/2021 Z47.89 Encounter for other orthopedic a hui [facility], [facility] 05/31/2021 Z47.89 Encounter for other orthopedic a hui Gardiner, [facility] 05/29/2021 Z47.89 Encounter for other orthopedic a hui Gardiner, [facility] 05/28/2021 M19.011 Primary osteoarthritis, right sh sarah Ceja PA-C 05/28/2021 M75.41 Impingement syndrome of right sh CHUCK WellsC 05/28/2021 M47.892 Other spondylosis, cervical yusef on Evelyne JaureguiVanessa Ceja PA-C 05/23/2021 Z47.89 Encounter for other orthopedic [...] other orthopedic a ftercare Yolande MartirVanessa [facility], [facility] 05/10/2021 Z47.89 Encounter for other orthopedic a ftercare Yolande MartirVanessa [facility], [facility] 05/08/2021 Z47.89 Encounter for other orthopedic a ftercare Torie Scee P.T.A. 2021 Z47.89 Encounter for other orthopedic a ftercare Yolande Martir. Abdifatah, [facility] 04/30/2021 Z47.89 Encounter for other orthopedic a ftercare Yolande MartirVanessa Alonzoshazia, [facility] 04/26/2021 Z47.89 Encounter for other orthopedic a ftercare Yolande MartirVanessa Gardiner, [facility] 04/24/2021 Z47.89 Encounter for other orthopedic a ftercare Yolande MartirVanessa Gardiner, [facility] 04/23/2021 M19.011 Primary osteoarthritis, right sh sarah Venturastephanie Ceja PA-C 04/23/2021 M75.41 Impingement syndrome of right sh sarah Venturastephanie Ceja PA-C 04/23/2021 M47.892 Other spondylosis, cervical yusef on Evelyne JaureguiVanessa Ceja PA-C 04/19/2021 Z47.89 Encounter for other orthopedic a ftercare Yolande Gardiner, [facility] 04/15/2021 Z47.89 Encounter for other orthopedic a ftercare Torie Scee P.T.A. 04/12/2021 Z47.89 Encounter for other orthopedic a ftercare Nurses 04/12/2021 Z47.89 Encounter for other orthopedic a ftercare Yolande [facility], [facility] 04/11/2021 Z47.89 Encounter for other orthopedic a ftercare Evelyne Ceja PA-C 04/10/2021 Z47.89 Encounter for other orthopedic a ftercare Torie Henderson P.T.A. 04/08/2021 Z47.89 Encounter for other orthopedic a ftercare Torie Henderson P.T.A. 04/05/2021 Z47.89 Encounter for other orthopedic a ftercare Benjamin Ceja MD 04/04/2021 Z47.89 Encounter for other orthopedic a ftercare Yolande [facility], [facility] 04/02/2021 M23.204 Derangement of unspe cified medial [...] exposure to other viral communicable diseases Lab 03/27/2021 M17.0 Bilateral primary osteoarthritis of knee Torie MitchellTBettina 03/25/2021 M17.0 Bilateral primary osteoarthritis of knee Yolande [facility], [facility] Plan of Treatment Future Appointment(s):* 10/11/2021 9:30 am - Evelyne Ceja PA-C at [facility] * 10/04/2021 9:15 am - Evelyne Ceja PA-C at [facility] * 09/27/2021 3:00 pm - Evelyne Ceja PA-C at [facility] 09/05/2021 - Evelyne Ceja PA-C* M17.12 Unilateral primary osteoarthritis, left knee* Follow up:* with [facility] after lt knee euflexxa approval Functional Status Description No Information Available Mental Status Description No Information Available Referrals Refer to Dr Reason for Referral Status Appt Date Evelyne Ceja PA-C Euflexxa left knee per medic are no auth req based on medical necessity, per elmira s at [facility] no auth req, per katjs s at r no auth req, passed to dental scheduler sw. Created [address] [place] [phone] Evelyne Ceja PA-C Euflexxa left knee per medic are no auth req based on medical necessity, per elmira s at [facility] no auth req, per katjs s at r no auth req, passed to dental scheduler sw. Created [address] [place] [phone] Evelyne Ceja PA-C Euflexxa left knee per medic are no auth req based on medical necessity, per elmira s at [facility] no auth req, per katjs s at r no auth req, passed to dental scheduler sw. Created [address] [place] [phone] Ki Diallo MD PT BASED ON MED. NECC TO PT DEPT. NT Creat ed [address] [place] [phone] Ki Diallo MD PT BASED ON MED. NECC TO PT DEPT. NT Creat ed [address] [place] [phone]
--- OUTSIDE RECORDS SUMMARY | 2021-10-27 10:24 | CCD | Continuity of Care Document ---
Author Author Rebecca Bang M.D. Organization Unknown Address [address] [facility] [address] [place] [address] Phone [phone] Care Team Providers Care Video Producer Name Role Phone Juana Bang MD AUTM [phone] Migdalia Elise MD AUTM [phone] Reese Ty OD AUTM [phone] Azra Ortiz JR, MD AUTM [phone] Sherrill Lubin MD AUTM [phone] Problems Active Problems Provider Date Osteoarthritis Juana [...] Given 08/14/2021 Influenza,Unspecified U-Flu Given 08/04/2020 Influenza,Unspecified 66067 Given 08/24/2019 Influenza Vaccin e Quadrivalent Preser/Antibiotic Free Im Use 798869 U-Flu Given 08/18/2018 Influenza,Unspecified 59746 Given 06/17/2018 Shingrix 09102 Given 2018 Tetanus/Diptheria(Td)Toxoids Preservative Free [id number] 41687 Given 02/10/2018 Shingrix 84395 Given 08/24/2017 Influenza Vaccin e Quadrivalent Preser/Antibiotic Free Im Use 033694 Q2037 Given 08/18/2016 Fluvirin Virus Vaccine 71718 01 U-PneuC Given 12/12/2015 Prevnar 13 Q2037 Given 09/01/2014 Fluvirin Virus Vaccine 22797 21 47980 Given 06/07/2014 Pneumovax 23 [id number] Q2037 Given 09/09/2013 Fluvirin Virus Vaccine 70117 01 Q2037 Given 09/23/2012 Fluvirin Virus Vaccine 58614 01 Q2037 Given 09/04/2011 Fluvirin Virus Vaccine 05113 Given 11/11/2010 Zoster Vaccine 08361 Given 10/15/2010 Adacel- Tetanus Diphtheria P ertussis 65999 Given 08/27/2010 Influenza Virus Vaccine 54272 Given 09/20/2009 Influenza Virus Vaccine Vital Signs [...] H/L Range Note Basic Metabolic Panel 08/28/2021 [facility] kathy mistry Parcel Post Order Clerk: Dr Michel Garcia [place], [place] [id number] [phone] Glucose 86 mg/dL 74 - 99 1 [...] mL/min >60 2 Basic Metabolic Panel 05/23/2021 [facility] kathy mistry Parcel Post Order Clerk: [place] [address] [phone] Glucose 103 mg/dL High 74 - 99 [...] Low >60 4 Complete Blood Count 03/07/2021 [facility] kathy velasquez Parcel Post Order Clerk: [place] [address] [phone] WBC 8.1 x10*3/UL 4.1 - 10.9 RBC [...] 2.0 - 7.8 Basic Metabolic Panel 03/07/2021 [facility] Parcel Post Order Clerk: [place] [address] [phone] Glucose 78 mg/dL 74 - 99 5 [...] mL/min >60 6 Laboratory test finding 03/07/2021 [facility] Parcel Post Order Clerk: [place] [address] [phone] Vitamin D 25-Hydroxy 61.4 ng/ml 24.0 - 80.0 7 1 100-125 mg/dL PRE-DIABET ES/FASTING >126 mg/dL DIABETES/FASTING 2 CHRONIC KIDNEY DISEASE STAGI NG PER NKF STAGE I & II GFR >= 60 NORMAL TO MILDLY DECREASED STAGE III GFR 30-59 MODERATELY DECREASED STAGE IV GFR 15-29 SEVERELY DECREASED STAGE V GFR <15 VERY LITTLE GFR LEFT ESRD GFR <15 ON UTILITY SYSTEM REPAIRER 3 100-125 mg/dL PRE-DIABET ES/FASTING >126 mg/dL DIABETES/FASTING 4 CHRONIC KIDNEY DISEASE STAGI NG PER NKF STAGE I & II GFR >= 60 NORMAL TO MILDLY DECREASED STAGE III GFR 30-59 MODERATELY DECREASED STAGE IV GFR 15-29 SEVERELY DECREASED STAGE V GFR <15 VERY LITTLE GFR LEFT ESRD GFR <15 ON UTILITY SYSTEM REPAIRER 5 100-125 mg/dL PRE-DIABET ES/FASTING >126 mg/dL DIABETES/FASTING 6 CHRONIC KIDNEY DISEASE STAGI NG PER NKF STAGE I & II GFR >= 60 NORMAL TO MILDLY DECREASED STAGE III GFR 30-59 MODERATELY DECREASED STAGE IV GFR 15-29 SEVERELY DECREASED STAGE V GFR <15 VERY LITTLE GFR LEFT ESRD GFR <15 ON UTILITY SYSTEM REPAIRER 7 This test was performed wally walker [employer] Vitamin D immunoassay kit. Values obtained with different assay methods should not be used interchangeably. Procedures Date Code Description Status 05/28/2021 55291 Office/Outpatient Established Mo d MDM 30-39 Min Completed 03/07/2021 63264 Office/Outpatient Established Mo d MDM 30-39 Min Completed 03/07/2021 32702 EKG/Interpretation & Report Comp leted 01/24/2021 [id number] Mammogram Completed 01/15/2021 [id number] Bone Mineral Density Test Comple telly 02/14/2019 [id number] Mammogram Completed 12/07/2018 [id number] Bone Mineral Density Test Comple [facility] 02/08/2018 [id number] Mammogram Completed 02/04/2017 [id number] Mammogram Completed 01/14/2016 [id number] Mammogram Completed 01/01/2015 [id number] Mammogram Completed 12/14/2014 [id number] Colonoscopy Completed 12/09/2013 [id number] Mammogram Completed 01/31/2013 [id number] Bone Mineral Density Test Comple telly 12/10/2012 [id number] Mammogram Completed 11/05/2011 [id number] Mammogram Completed 12/31/2010 [id number] Bone Mineral Density Test Comple [facility] 10/22/2010 [id number] Mammogram Completed 09/26/2004 [id number] Colonoscopy Completed 07/21/2003 [id number] Bone Mineral Density Test [facility] 02/13/1998 [id number] Bone Mineral Density Test Comple telly 02/09/1998 [id number] Bone Mineral Density Test Comple [facility] Medical Devices Description No Information Available Encounters [...] hypercholesterolemia, u nspecified Office Visit 03/07/2021 10:00a [facility] Z01.810 Encounter for preprocedural cardiovascular [...] N18.31 Chronic kidney disease, stage 3a Juana aBng M.D. 08/28/2021 F32.89 Other specified depressive episo [...] 12/03/2021 7:50 am - Lab Schedule at [facility] * 12/04/2021 10:30 am - Ju[facility] * 12/04/2021 10:00 am - Nurse #2 at [facility] 08/28/2021 - Juana Bang M.D.* [...]
--- OUTSIDE RECORDS SUMMARY | 2021-10-27 10:24 | CCD | Continuity of Care Document ---
Author Author Rebecca CEJA PA-C Organization Unknown Address [address] [place] [address] Phone [phone] Care Team Providers Care Cosmetic Consultant Name Role Phone Juana Bang MD AUTM [phone] Problems Active Problems Provider Date Essential hypertension [...] Omeprazole 40mg Capsules DR Unknown Caltrate 600+D3 [id number]-Ydii Tab lets 1 by mouth twice a [...] Available Procedures Date Code Description Status 09/05/2021 80167 X-Ray Knee Complete W/Obliques & Tunnel And/Or Standing Views Completed 09/05/2021 66722 Office/Outpatient Established Mo d MDM 30-39 Min Completed 09/05/202138566 Inject/Drain Joint/Bursa Major C ompleted 07/17/2021 98776 Office/Outpatient Established Lo w MDM 20-29 Min Completed 06/05/2021 37398 Therapeutic Procedure, Each 15 M inutes Completed 06/03/2021 27639 Therapeutic Procedure, Each 15 M inutes Completed 05/31/2021 99157 Therapeutic Procedure, Each 15 M inutes Completed 05/29/2021 95654 Therapeutic Procedure, Each 15 M inutes Completed 05/28/2021 68740 Office/Outpatient Established Lo w MDM 20-29 Min Completed 05/23/2021 42754 Office/Outpatient Established Lo w MDM 20-29 Min Completed 05/17/2021 31726 Therapeutic Procedure, Each 15 M inutes Completed 05/15/2021 55630 Therapeutic Procedure, Each 15 M inutes Completed 05/13/2021 50156 Therapeutic Procedure, Each 15 M inutes Completed 05/10/2021 57638 Therapeutic Procedure, Each 15 M inutes Completed 05/10/2021 84809 Hot Or Cold Packs Completed 05/08/2021 69200 Therapeutic Procedure, Each 15 M inutes Completed 2021 01070 Therapeutic Procedure, Each 15 M inutes Completed 04/30/2021 80789 Therapeutic Procedure, Each 15 M inutes Completed 04/26/2021 71903 Therapeutic Procedure, Each 15 M inutes Completed 04/26/2021 68906 Hot Or Cold Packs Completed 04/24/2021 65303 Therapeutic Procedure, Each 15 M inutes Completed 04/23/2021 90199 Inject/Drain Joint/Bursa Major C ompleted 04/23/2021 89376 X-Ray Shoulder Complete Complete d 04/23/2021 90963 Office/Outpatient Established Mo d MDM 30-39 Min Completed 04/23/2021 47878 X-Ray Spine Cervical 6 Or More V iews Completed 04/19/2021 25212 Therapeutic Procedure, Each 15 M inutes Completed 04/15/2021 78797 Therapeutic Procedure, Each 15 M inutes Completed 04/12/2021 71899 Therapeutic Procedure, Each 15 M inutes Completed 04/10/2021 20123 Therapeutic Procedure, Each 15 M inutes Completed 04/08/2021 99370 Therapeutic Procedure, Each 15 M inutes Completed 04/04/2021 16992 Re-Eval Of PT Establ ished Plan Of Care 20Mins Face To Face PT/Fam Completed 04/02/2021 35192 Arthroscopy Knee W/M eniscectomy Inc Chondroplasty (Med & Lateral) Completed 03/27/2021 70414 Therapeutic Procedure, Each 15 M inutes Completed 03/27/2021 71427 Manual Therapy Each 15 Minutes C ompleted 03/25/2021 27019 Manual Therapy Each 15 Minutes C ompleted 03/25/2021 45060 Therapeutic Procedure, Each 15 M inutes Completed 03/18/2021 19085 Manual Therapy Each 15 Minutes C ompleted 03/18/2021 17677 Therapeutic Procedure, Each 15 M inutes Completed 03/13/2021 91440 Manual Therapy Each 15 Minutes C ompleted 03/13/2021 80868 Therapeutic Procedure, Each 15 M inutes Completed 03/11/2021 57090 Manual Therapy Each 15 Minutes C ompleted 03/11/2021 33829 Therapeutic Procedure, Each 15 M inutes Completed 03/08/2021 70702 Manual Therapy Each 15 Minutes C ompleted 03/08/2021 66249 Therapeutic Procedure, Each 15 M inutes Completed [...] 06/05/2021 Z47.89 Encounter for other orthopedic a LALY EdwardT 06/03/2021 Z47.89 Encounter for other orthopedic a ftercare Yolande Gardiner, MSPT 05/31/2021 Z47.89 Encounter for other orthopedic a ftercare Yolande Gardiner, MSPT 05/29/2021 Z47.89 Encounter for other orthopedic a ftercare Yolande Gardiner, [facility] 05/28/2021 M19.011 Primary osteoarthritis, right sh sarah Evelyne Ceja PA-C 05/28/2021 M75.41 Impingement syndrome of right sh sarah CHUCK PeacockC 05/28/2021 M47.892 Other spondylosis, cervical yusef on Evelyne Ceja PA-C 05/23/2021 Z47.89 Encounter for other [...] for other orthopedic a ftercare Yolande Gardiner, [facility] 05/10/2021 Z47.89 Encounter for other orthopedic a ftercare Yolande Gardiner, MSPT 05/08/2021 Z47.89 Encounter for other orthopedic a ftercare Torie Scee P.T.A. 2021 Z47.89 Encounter for other orthopedic a ftercare Yolande Gardiner, MSPT 04/30/2021 Z47.89 Encounter for other orthopedic a ftercare Yolande Gardiner, MSPT 04/26/2021 Z47.89 Encounter for other orthopedic a ftercare Yolande Gardiner, [facility] 04/24/2021 Z47.89 Encounter for other orthopedic a ftercare Yolande Gardiner, MSPT 04/23/2021 M19.011 Primary osteoarthritis, right sarah Zarate PARVEEN Ceja 04/23/2021 M75.41 Impingement syndrome of right sh sarah Zarate PARVEEN Ceja 04/23/2021 M47.892 Other spondylosis, cervical yusef on Evelyne Zarate PARVEEN Ceja 04/19/2021 Z47.89 Encounter for other orthopedic a ftercare Yolande MartirVanessa Gardiner, [facility] 04/15/2021 Z47.89 Encounter for other orthopedic a ftercare Torie Scee P.T.A. 04/12/2021 Z47.89 Encounter for other orthopedic a ftercare Nurses 04/12/2021 Z47.89 Encounter for other orthopedic a ftercare Yolande MartirVanessa Gardiner, [facility] 04/11/2021 Z47.89 Encounter for other orthopedic a ftercare Evelyne aZrate PARVEEN Ceja 04/10/2021 Z47.89 Encounter for other orthopedic a ftercare Torie Scee P.T.A. 04/08/2021 Z47.89 Encounter for other orthopedic a ftercare Torie Scee P.T.A. 04/05/2021 Z47.89 Encounter for other orthopedic a ftercare Benjaimn Ceja MD 04/04/2021 Z47.89 Encounter for other orthopedic a ftercare Yolande Gardiner, [facility] 04/02/2021 M23.204 Derangement of unspe cified medial [...] M17.0 Bilateral primary osteoarthritis of knee Torie Scee P.T.A. 03/25/2021 M17.0 Bilateral primary osteoarthritis of knee Yolande Gardiner, MSPT 03/18/2021 M17.0 Bilateral primary osteoarthritis of knee Danamarie Ortolano, [employer] TE[employer] LEADER 03/13/2021 M17.0 Bilateral primary osteoarthritis of knee Yolande Gardiner, MSPT 03/11/2021 M17.0 Bilateral primary osteoarthritis of knee Torie Scee P.T.A. 03/11/2021 Z01.818 Encounter for other preprocedura l examination Torie Scee P.T.A. 03/11/2021 Z01.818 Encounter for other preprocedura l examination Lab 03/11/2021 Z20.828 Contact with and (lewis spected) exposure to other viral communicable diseases Torie Scee P.T.A. 03/11/2021 Z20.828 Contact with and (lewis spected) exposure to other viral communicable diseases Lab 03/08/2021 M17.0 Bilateral primary osteoarthritis of knee Yolande Gardiner, [facility] Plan of Treatment 09/05/2021 - Evelyne Ceja PA-C* M17.12 Unilateral primary osteoarthritis, left knee* New Orders:* Euflexxa LT Knee Injection, Ordered: 09/05/21 * Follow up:* with [facility] after lt knee euflexxa approval Functional Status Description No Information Available Mental Status Description No Information Available Referrals Refer to Reason for Referral Status Appt Date Ki Diallo MD PT BASED ON MED. NECC TO PT DEPT. NT Creat ed [facility] [address] [phone] Ki Diallo MD PT BASED ON MED. NECC TO PT DEPT. NT Creat ed [facility] [address] [address] [phone]
--- OUTSIDE RECORDS SUMMARY | 2021-10-27 10:24 | CCD | Continuity of Care Document ---
Author Author Rebecca Bang M.D. Organization Unknown Address [address] [facility] [address] [place] [address] Phone [phone] Care Team Providers Care Media Associate Name Role Phone Juana Bang MD AUTM [phone] Migdalia Elise MD AUTM [phone] Reese Ty OD AUTM [phone] Azra Ortiz JR, MD AUTM Sherrill Lubin MD AUTM [phone] Problems Active Problems Provider Date Osteoarthritis Juana [...] mouth every night at bedtime 90tabs Juana aBng M.D. [address] 1 [...] Given 08/14/2021 Influenza,Unspecified U-Flu Given 08/04/2020 Influenza,Unspecified 26516 Given 08/24/2019 Influenza Vaccin e Quadrivalent Preser/Antibiotic Free Im Use 170421 U-Flu Given 08/18/2018 Influenza,Unspecified 99637 Given 06/17/2018 Shingrix 18824 Given 2018 Tetanus/Diptheria(Td)Toxoids Preservative Free [id number] 52466 Given 02/10/2018 Shingrix 72355 Given 08/24/2017 Influenza Vaccin e Quadrivalent Preser/Antibiotic Free Im Use 267637 Q2037 Given 08/18/2016 Fluvirin Virus Vaccine 06202 01 U-PneuC Given 12/12/2015 Prevnar 13 Q2037 Given 09/01/2014 Fluvirin Virus Vaccine 58539 21 69750 Given 06/07/2014 Pneumovax 23 [id number] Q2037 Given 09/09/2013 Fluvirin Virus Vaccine 92829 01 Q2037 Given 09/23/2012 Fluvirin Virus Vaccine 60998 01 Q2037 Given 09/04/2011 Fluvirin Virus Vaccine 09427 Given 11/11/2010 Zoster Vaccine 57646 Given 10/15/2010 Adacel- Tetanus Diphtheria P ertussis 91359 Given 08/27/2010 Influenza Virus Vaccine 89671 Given 09/20/2009 Influenza Virus Vaccine Vital Signs [...] H/L Range Note Basic Metabolic Panel 08/28/2021 [facility] kathy mistry Optician Apprentice: Dr Michel Garcia [place], [place] [id number] [phone] Glucose 86 mg/dL 74 - 99 1 [...] mL/min >60 2 Basic Metabolic Panel 05/23/2021 [facility] kathy mistry Optician Apprentice: [place] [address] [phone] Glucose 103 mg/dL High 74 - 99 [...] Low >60 4 Complete Blood Count 03/07/2021 [facility] kathy velasquez Optician Apprentice: [place] [address] [phone] WBC 8.1 x10*3/UL 4.1 - 10.9 RBC [...] 2.0 - 7.8 Basic Metabolic Panel 03/07/2021 [facility] Optician Apprentice: [place] [address] [phone] Glucose 78 mg/dL 74 - 99 5 [...] mL/min >60 6 Laboratory test finding 03/07/2021 [facility] Optician Apprentice: [place] [address] [phone] Vitamin D 25-Hydroxy 61.4 ng/ml 24.0 - 80.0 7 1 100-125 mg/dL PRE-DIABET ES/FASTING >126 mg/dL DIABETES/FASTING 2 CHRONIC KIDNEY DISEASE STAGI NG PER NKF STAGE I & II GFR >= 60 NORMAL TO MILDLY DECREASED STAGE III GFR 30-59 MODERATELY DECREASED STAGE IV GFR 15-29 SEVERELY DECREASED STAGE V GFR <15 VERY LITTLE GFR LEFT ESRD GFR <15 ON ROBOTIC MACHINE OPERATOR 3 100-125 mg/dL PRE-DIABET ES/FASTING >126 mg/dL DIABETES/FASTING 4 CHRONIC KIDNEY DISEASE STAGI NG PER NKF STAGE I & II GFR >= 60 NORMAL TO MILDLY DECREASED STAGE III GFR 30-59 MODERATELY DECREASED STAGE IV GFR 15-29 SEVERELY DECREASED STAGE V GFR <15 VERY LITTLE GFR LEFT ESRD GFR <15 ON ROBOTIC MACHINE OPERATOR 5 100-125 mg/dL PRE-DIABET ES/FASTING >126 mg/dL DIABETES/FASTING 6 CHRONIC KIDNEY DISEASE STAGI NG PER NKF STAGE I & II GFR >= 60 NORMAL TO MILDLY DECREASED STAGE III GFR 30-59 MODERATELY DECREASED STAGE IV GFR 15-29 SEVERELY DECREASED STAGE V GFR <15 VERY LITTLE GFR LEFT ESRD GFR <15 ON ROBOTIC MACHINE OPERATOR 7 This test was performed [employer] Bionic Vitamin D immunoassay kit. Values obtained with different assay methods should not be used interchangeably. Procedures Date Code Description Status 05/28/2021 79247 Office/Outpatient Established Mo d MDM 30-39 Min Completed 03/07/2021 18021 Office/Outpatient Established Mo d MDM 30-39 Min Completed 03/07/2021 66355 EKG/Interpretation & Report Comp leted 01/24/2021 [id number] Mammogram Completed 01/15/2021 [id number] Bone Mineral Density Test Comple telly 02/14/2019 [id number] Mammogram Completed 12/07/2018 342441802 Bone Mineral Density Test Comple [facility] 02/08/2018 [id number] Mammogram Completed 02/04/2017 [id number] Mammogram Completed 01/14/2016 64992824 Mammogram Completed 01/01/2015 12038990 Mammogram Completed 12/14/2014 85139844 Colonoscopy Completed 12/09/2013 [id number] Mammogram Completed 01/31/2013 [id number] Bone Mineral Density Test Comple telly 12/10/2012 [id number] Mammogram Completed 11/05/2011 [id number] Mammogram Completed 12/31/2010 334051467 Bone Mineral Density Test Comple [facility] 10/22/2010 [id number] Mammogram Completed 09/26/2004 59357838 Colonoscopy Completed 07/21/2003 [id number] Bone Mineral Density Test [facility] 02/13/1998 503779543 Bone Mineral Density Test Comple telly 02/09/1998 358534929 Bone Mineral Density Test Comple [facility] Medical Devices Description No Information Available Encounters [...] hypercholesterolemia, u nspecified Office [facility] Z01.810 Encounter for preprocedural cardiovascular [...] 12/03/2021 7:50 am - Lab Schedule at [facility] * 12/04/2021 10:30 am - [facility] * 12/04/2021 10:00 am - Nurse #2 at [facility] 08/28/2021 - Juana Bang M.D.* [...]
--- OUTSIDE RECORDS SUMMARY | 2021-10-27 10:24 | CCD ---
Continuity of Care Document (CCD) Created on: 09/27/2021 Rebecca Cloud External Reference #: [id number] : [id number] Sex: Female Author Author Nurse #Rebecca Cardona Organization Unknown Address [address] [facility] [place] [address] [place] [address] Phone Unavailable Care Team Providers Care Fishing Accessories Maker Name Role Phone Juana Bang MD AUTM [phone] Migdalia Elise MD AUTM [phone] Reese Ty OD AUTM [phone] Azra Ortiz JR, MD AUTM Sherrill Lubin MD AUTM [phone] Problems Active Problems Provider Date Osteoarthritis Juana [...] 08/24/20 19 Administration Of Flu Vaccine Inj ection Martir Tilley.D. 08/24/20 17 Administration Of Flu Vaccine Inj eugenie Bang M.D. 08/18/20 16 Administration Of Flu Vaccine Inj eugenie Bang M.D. 09/01/20 14 Immunizations CPT Code Status Date Vaccine Lot # U-Flu Given 08/14/2021 Influenza,Unspecified U-Flu Given 08/04/2020 Influenza,Unspecified 18236 Given 08/24/2019 Influenza Vaccin e Quadrivalent Preser/Antibiotic Free Im Use 663959 U-Flu Given 08/18/2018 Influenza,Unspecified 73422 Given 06/17/2018 Shingrix 27765 Given 2018 Tetanus/Diptheria(Td)Toxoids Preservative Free [id number] 57145 Given 02/10/2018 Shingrix 89237 Given 08/24/2017 Influenza Vaccin e Quadrivalent Preser/Antibiotic Free Im Use 192888 Q2037 Given 08/18/2016 Fluvirin Virus Vaccine 77216 01 U-PneuC Given 12/12/2015 Prevnar 13 Q2037 Given 09/01/2014 Fluvirin Virus Vaccine 80692 21 23340 Given 06/07/2014 Pneumovax 23 [id number] Q2037 Given 09/09/2013 Fluvirin Virus Vaccine 37849 01 Q2037 Given 09/23/2012 Fluvirin Virus Vaccine 27511 01 Q2037 Given 09/04/2011 Fluvirin Virus Vaccine 37746 Given 11/11/2010 Zoster Vaccine 91415 Given 10/15/2010 Adacel- Tetanus Diphtheria P ertussis 77463 Given 08/27/2010 Influenza Virus Vaccine 26618 Given 09/20/2009 Influenza Virus Vaccine Vital Signs [...] H/L Range Note Basic Metabolic Panel 08/28/2021 [facility] kathy mistry Portfolio Strategist: Dr Michel Garcia [place], [place] [id number] [phone] Glucose 86 mg/dL 74 - 99 1 [...] mL/min >60 2 Basic Metabolic Panel 05/23/2021 [facility] kathy mistry Portfolio Strategist: [place] [address] [phone] Glucose 103 mg/dL High 74 - 99 [...] >60 GFR 59 mL/min Low >60 4 1 100-125 mg/dL PRE-DIABET ES/FASTING >126 mg/dL DIABETES/FASTING 2 CHRONIC KIDNEY DISEASE STAGI NG PER NKF STAGE I & II GFR >= 60 NORMAL TO MILDLY DECREASED STAGE III GFR 30-59 MODERATELY DECREASED STAGE IV GFR 15-29 SEVERELY DECREASED STAGE V GFR <15 VERY LITTLE GFR LEFT ESRD GFR <15 ON JOB TRAINING SPECIALIST 3 100-125 mg/dL PRE-DIABET ES/FASTING >126 mg/dL DIABETES/FASTING 4 CHRONIC KIDNEY DISEASE STAGI NG PER NKF STAGE I & II GFR >= 60 NORMAL TO MILDLY DECREASED STAGE III GFR 30-59 MODERATELY DECREASED STAGE IV GFR 15-29 SEVERELY DECREASED STAGE V GFR <15 VERY LITTLE GFR LEFT ESRD GFR <15 ON JOB TRAINING SPECIALIST Procedures Date Code Description Status 08/28/2021 04770 Office/Outpatient Established Mo d MDM 30-39 Min Completed 05/28/2021 80636 Office/Outpatient Established Mo d MDM 30-39 Min Completed 01/24/2021 [id number] Mammogram Completed 01/15/2021 013024524 Bone Mineral Density Test Comple telly 02/14/2019 [id number] Mammogram Completed 12/07/2018 [id number] Bone Mineral Density Test Comple telly 02/08/2018 [id number] Mammogram Completed 02/04/2017 [id number] Mammogram Completed 01/14/2016 [id number] Mammogram Completed 01/01/2015 80171605 Mammogram Completed 12/14/2014 [id number] Colonoscopy Completed 12/09/2013 [id number] Mammogram Completed 01/31/2013 994851216 Bone Mineral Density Test Comple telly 12/10/2012 [id number] Mammogram Completed 11/05/2011 [id number] Mammogram Completed 12/31/2010 914952792 Bone Mineral Density Test Comple telly 10/22/2010 [id number] Mammogram Completed 09/26/2004 [id number] Colonoscopy Completed 07/21/2003 [id number] Bone Mineral Density Test Comple telly 02/13/1998 [id number] Bone Mineral Density Test Comple telly 02/09/1998 391095642 Bone Mineral Density Test Comple telly Medical Devices Description No Information Available Encounters Type Date Location Provider Dx Diagnosis Office Visit 08/28/2021 9:45a [facility] M19.90 Unspecified osteoarthritis, unspecified site I12.9 Hypertensive chronic kidney disease w stg 1-4/unsp chr kdny N18.31 Chronic kidney disease, stag e 3a F32.89 Other specified depressive e pisodes F41.9 Anxiety disorder, unspecifie d Z68.33 Body mass index [BMI] 33.0-3 3.9, adult E66.09 Other obesity due to excess calories E78.00 Pure hypercholesterolemia, u nspecified Office Visit 05/28/2021 11:15a [facility] M.[facility]. M19.90 Unspecified osteoarthritis, unspecified site I12.9 [...] excess calories E78.00 Pure hypercholesterolemia, u nspecified Assessments Date Code Description Provider 08/28/2021 M19.90 Unspecified osteoarthritis, unsp ecified site Juana Bang M.D. 08/28/2021 I12.9 Hypertensive chronic kidney disease with stage 1 through stage 4 chronic kidney disease, or unspecified chronic kidney disease Juana Bang M.D. 08/28/2021 N18.31 Chronic kidney disease, stage 3a Juana Bang M.D. 08/28/2021 F32.89 Other specified depressive episo andres Bang M.D. 08/28/2021 F41.9 Anxiety disorder, unspecified Andreina Bang M.D. 08/28/2021 Z68.33 Body mass index [BMI] 33.0-33.9, adult Juana Bang M.D. 08/28/2021 E66.09 Other obesity due [...] 05/28/2021 F32.89 Other specified depressive episo andres Bang M.D. 05/28/2021 F41.9 Anxiety disorder, unspecified [...] Chronic kidney disease, stage 3a Lab Schedule Plan of Treatment Future Appointment(s):* 12/03/2021 7:50 am - Lab Schedule at [facility] * 12/04/2021 10:30 am - Juana Bang M.D. at [facility] * 12/04/2021 10:00 am - [facility] 08/28/2021 - Juana Bang M.D.* M19.90 Unspecified osteoarthritis, unspecified site * I12.9 Hypertensive chronic kidney disease with stage 1 through stage 4 chronic kidney disease, or unspecified chronic kidney disease * N18.31 Chronic kidney disease, stage 3a * F32.89 Other specified depressive episodes * F41.9 Anxiety disorder, unspecified * Z68.33 Body mass index [BMI] 33.0-33.9, adult * E66.09 Other obesity due to excess calories * E78.00 Pure hypercholesterolemia, unspecified * All * Comments:* 8. Health Maintenance. She has had the flu shot, COVID booster is recommended as well as COVID safety Functional Status Description No Information Available Mental Status Description No Information Available Referrals Description No Information Available
--- OUTSIDE RECORDS SUMMARY | 2021-10-27 10:24 | CCD | Continuity of Care Document ---
Author Author Rebecca Bnag M.D. Organization Unknown Address [address] [facility] [address] [place] [address] Phone [phone] Care Team Providers Care Warehouse Hand Name Role Phone Juana Bang MD AUTM [phone] Migdalia Elise MD AUTM [phone] Reese Ty OD AUTM [phone] Azra Ortiz JR, MD AUTM Sherrill Lubin MD AUTM [phone] Problems Active Problems Provider Date Osteoarthritis Juana [...] Given 08/14/2021 Influenza,Unspecified U-Flu Given 08/04/2020 Influenza,Unspecified 22054 Given 08/24/2019 Influenza Vaccin e Quadrivalent Preser/Antibiotic Free Im Use [id number] U-Flu Given 08/18/2018 Influenza,Unspecified 22335 Given 06/17/2018 Shingrix 71685 Given 2018 Tetanus/Diptheria(Td)Toxoids Preservative Free [id number] 80472 Given 02/10/2018 Shingrix 56079 Given 08/24/2017 Influenza Vaccin e Quadrivalent Preser/Antibiotic Free Im Use 018798 Q2037 Given 08/18/2016 Fluvirin Virus Vaccine 92476 01 U-PneuC Given 12/12/2015 Prevnar 13 Q2037 Given 09/01/2014 Fluvirin Virus Vaccine 94782 21 62084 Given 06/07/2014 Pneumovax 23 [id number] Q2037 Given 09/09/2013 Fluvirin Virus Vaccine 34519 01 Q2037 Given 09/23/2012 Fluvirin Virus Vaccine 63541 01 Q2037 Given 09/04/2011 Fluvirin Virus Vaccine 41597 Given 11/11/2010 Zoster Vaccine 05481 Given 10/15/2010 Adacel- Tetanus Diphtheria P ertussis 56281 Given 08/27/2010 Influenza Virus Vaccine 17038 Given 09/20/2009 Influenza Virus Vaccine Vital Signs [...] H/L Range Note Basic Metabolic Panel 08/28/2021 [facility] kathy mistry [employer] Police: Dr Michel Garcia [place], [place] [id number] [phone] Glucose 86 mg/dL 74 - 99 1 [...] mL/min >60 2 Basic Metabolic Panel 05/23/2021 [facility] ktahy mistry [employer]: [place] [address] [phone] Glucose 103 mg/dL High 74 - 99 [...] Low >60 4 Complete Blood Count 03/07/2021 [place] [facility] kathy velasquez [employer]: [place] [address] [phone] WBC 8.1 x10*3/UL 4.1 - 10.9 RBC [...] 2.0 - 7.8 Basic Metabolic Panel 03/07/2021 [facility] [employer]: [place] [address] [phone] Glucose 78 mg/dL 74 - 99 5 [...] mL/min >60 6 Laboratory test finding 03/07/2021 [facility] [employer] Police: [place] [address] [phone] Vitamin D 25-Hydroxy 61.4 ng/ml 24.0 - 80.0 7 1 100-125 mg/dL PRE-DIABET ES/FASTING >126 mg/dL DIABETES/FASTING 2 CHRONIC KIDNEY DISEASE STAGI NG PER NKF STAGE I & II GFR >= 60 NORMAL TO MILDLY DECREASED STAGE III GFR 30-59 MODERATELY DECREASED STAGE IV GFR 15-29 SEVERELY DECREASED STAGE V GFR <15 VERY LITTLE GFR LEFT ESRD GFR <15 ON POTATO PANCAKE FRIER 3 100-125 mg/dL PRE-DIABET ES/FASTING >126 mg/dL DIABETES/FASTING 4 CHRONIC KIDNEY DISEASE STAGI NG PER NKF STAGE I & II GFR >= 60 NORMAL TO MILDLY DECREASED STAGE III GFR 30-59 MODERATELY DECREASED STAGE IV GFR 15-29 SEVERELY DECREASED STAGE V GFR <15 VERY LITTLE GFR LEFT ESRD GFR <15 ON POTATO PANCAKE FRIER 5 100-125 mg/dL PRE-DIABET ES/FASTING >126 mg/dL DIABETES/FASTING 6 CHRONIC KIDNEY DISEASE STAGI NG PER NKF STAGE I & II GFR >= 60 NORMAL TO MILDLY DECREASED STAGE III GFR 30-59 MODERATELY DECREASED STAGE IV GFR 15-29 SEVERELY DECREASED STAGE V GFR <15 VERY LITTLE GFR LEFT ESRD GFR <15 ON POTATO PANCAKE FRIER 7 This test was performed wally walker [employer] Vitamin D immunoassay kit. Values obtained with different assay methods should not be used interchangeably. Procedures Date Code Description Status 05/28/2021 76258 Office/Outpatient Established Mo d MDM 30-39 Min Completed 03/07/2021 81597 Office/Outpatient Established Mo d MDM 30-39 Min Completed 03/07/2021 10054 EKG/Interpretation & Report Comp leted 01/24/2021 [id number] Mammogram Completed 01/15/2021 [id number] Bone Mineral Density Test Comple telly 02/14/2019 [id number] Mammogram Completed 12/07/2018 [id number] Bone Mineral Density Test Comple [facility] 02/08/2018 [id number] Mammogram Completed 02/04/2017 [id number] Mammogram Completed 01/14/2016 [id number] Mammogram Completed 01/01/2015 [id number] Mammogram Completed 12/14/2014 [id number] Colonoscopy Completed 12/09/2013 [id number] Mammogram Completed 01/31/2013 [id number] Bone Mineral Density Test Comple telly 12/10/2012 [id number] Mammogram Completed 11/05/2011 [id number] Mammogram Completed 12/31/2010 [id number] Bone Mineral Density Test Comple [facility] 10/22/2010 [id number] Mammogram Completed 09/26/2004 [id number] Colonoscopy Completed 07/21/2003 [id number] Bone Mineral Density Test [facility] 02/13/1998 [id number] Bone Mineral Density Test Comple telly 02/09/1998 [id number] Bone Mineral Density Test [facility] [place] [...] hypercholesterolemia, u nspecified Office Visit 03/07/2021 10:00a [facility] Z01.810 Encounter for preprocedural cardiovascular [...] 12/03/2021 7:50 am - Lab Schedule at [facility] * 12/04/2021 10:30 am - Juana Bang M.D. at [facility] * 12/04/2021 10:00 am - Nurse #2 at [facility] 08/28/2021 - Juana Bang [...]
--- OUTSIDE RECORDS SUMMARY | 2021-10-27 10:24 | CCD | Continuity of Care Document ---
Author Author Rebecca Bang M.D. Organization Unknown Address [address] [facility] [address] [place] [address] Phone [phone] Care Team Providers Care Preload Supervisor Name Role Phone Juana Bang MD AUTM [phone] Migdalia Elise MD AUTM [phone] Reese Ty OD AUTM [phone] Azra Ortiz JR, MD AUTM Sherrill Lubin MD AUTM [phone] Problems Active Problems Provider Date Osteoarthritis Juana [...] Given 08/14/2021 Influenza,Unspecified U-Flu Given 08/04/2020 Influenza,Unspecified 06990 Given 08/24/2019 Influenza Vaccin e Quadrivalent Preser/Antibiotic Free Im Use 753508 U-Flu Given 08/18/2018 Influenza,Unspecified 71311 Given 06/17/2018 Shingrix 16464 Given 2018 Tetanus/Diptheria(Td)Toxoids Preservative Free [id number] 73071 Given 02/10/2018 Shingrix 95229 Given 08/24/2017 Influenza Vaccin e Quadrivalent Preser/Antibiotic Free Im Use 559394 Q2037 Given 08/18/2016 Fluvirin Virus Vaccine 00921 01 U-PneuC Given 12/12/2015 Prevnar 13 Q2037 Given 09/01/2014 Fluvirin Virus Vaccine 17159 21 28683 Given 06/07/2014 Pneumovax 23 [id number] Q2037 Given 09/09/2013 Fluvirin Virus Vaccine 20992 01 Q2037 Given 09/23/2012 Fluvirin Virus Vaccine 30121 01 Q2037 Given 09/04/2011 Fluvirin Virus Vaccine 85079 Given 11/11/2010 Zoster Vaccine 94483 Given 10/15/2010 Adacel- Tetanus Diphtheria P ertussis 33400 Given 08/27/2010 Influenza Virus Vaccine 14036 Given 09/20/2009 Influenza Virus Vaccine Vital Signs [...] H/L Range Note Basic Metabolic Panel 08/28/2021 [facility] kathy mistry Dog Sitter: Dr Michel Garcia [place], [place] [id number] [phone] Glucose 86 mg/dL 74 - 99 1 [...] mL/min >60 2 Basic Metabolic Panel 05/23/2021 [facility] kathy mistry Dog Sitter: [place] [address] [phone] Glucose 103 mg/dL High 74 - 99 [...] Low >60 4 Complete Blood Count 03/07/2021 [place] [facility] [employer] kathy velasquez Dog Sitter: [place] [address] [phone] WBC 8.1 x10*3/UL 4.1 - 10.9 RBC [...] 2.0 - 7.8 Basic Metabolic Panel 03/07/2021 [facility] Dog Sitter: [place] [address] [phone] Glucose 78 mg/dL 74 - 99 5 [...] mL/min >60 6 Laboratory test finding 03/07/2021 [facility] Dog Sitter: [place] [address] [phone] Vitamin D 25-Hydroxy 61.4 ng/ml 24.0 - 80.0 7 1 100-125 mg/dL PRE-DIABET ES/FASTING >126 mg/dL DIABETES/FASTING 2 CHRONIC KIDNEY DISEASE STAGI NG PER NKF STAGE I & II GFR >= 60 NORMAL TO MILDLY DECREASED STAGE III GFR 30-59 MODERATELY DECREASED STAGE IV GFR 15-29 SEVERELY DECREASED STAGE V GFR <15 VERY LITTLE GFR LEFT ESRD GFR <15 ON RADIO PROGRAM DIRECTOR 3 100-125 mg/dL PRE-DIABET ES/FASTING >126 mg/dL DIABETES/FASTING 4 CHRONIC KIDNEY DISEASE STAGI NG PER NKF STAGE I & II GFR >= 60 NORMAL TO MILDLY DECREASED STAGE III GFR 30-59 MODERATELY DECREASED STAGE IV GFR 15-29 SEVERELY DECREASED STAGE V GFR <15 VERY LITTLE GFR LEFT ESRD GFR <15 ON RADIO PROGRAM DIRECTOR 5 100-125 mg/dL PRE-DIABET ES/FASTING >126 mg/dL DIABETES/FASTING 6 CHRONIC KIDNEY DISEASE STAGI NG PER NKF STAGE I & II GFR >= 60 NORMAL TO MILDLY DECREASED STAGE III GFR 30-59 MODERATELY DECREASED STAGE IV GFR 15-29 SEVERELY DECREASED STAGE V GFR <15 VERY LITTLE GFR LEFT ESRD GFR <15 ON RADIO PROGRAM DIRECTOR 7 This test was performed wally [employer] Vitamin D immunoassay kit. Values obtained with different assay methods should not be used interchangeably. Procedures Date Code Description Status 08/28/2021 14570 Office/Outpatient Established Mo d MDM 30-39 Min Completed 05/28/2021 57821 Office/Outpatient Established Mo d MDM 30-39 Min Completed 03/07/2021 08749 Office/Outpatient Established Mo d MDM 30-39 Min Completed 03/07/2021 88545 EKG/Interpretation & Report Comp leted 01/24/2021 [id number] Mammogram Completed 01/15/2021 [id number] Bone Mineral Density Test Comple telly 02/14/2019 [id number] Mammogram Completed 12/07/2018 [id number] Bone Mineral Density Test Comple telly 02/08/2018 [id number] Mammogram Completed 02/04/2017 [id number] Mammogram Completed 01/14/2016 [id number] Mammogram Completed 01/01/2015 [id number] Mammogram Completed 12/14/2014 [id number] Colonoscopy Completed 12/09/2013 [id number] Mammogram Completed 01/31/2013 [id number] Bone Mineral Density Test Comple telly 12/10/2012 [id number] Mammogram Completed 11/05/2011 [id number] Mammogram Completed 12/31/2010 [id number] Bone Mineral Density Test Comple [facility] 10/22/2010 [id number] Mammogram Completed 09/26/2004 [id number] Colonoscopy Completed 07/21/2003 [id number] Bone Mineral Density Test Comple [facility] 02/13/1998 [id number] Bone Mineral Density Test Comple telly 02/09/1998 [id number] Bone Mineral Density Test Comple [facility] Medical Devices Description No Information Available Encounters Type Date Location Provider Dx Diagnosis Office Visit 08/28/2021 9:45a [facility] M19.90 Unspecified osteoarthritis, unspecified site I12.9 Hypertensive chronic kidney disease w stg 1-4/unsp chr kdny N18.31 Chronic kidney disease, stag e 3a F32.89 Other specified depressive e pisodes F41.9 Anxiety disorder, unspecifie d Z68.33 Body mass index [BMI] 33.0-3 3.9, adult E66.09 Other obesity due to excess calories E78.00 Pure hypercholesterolemia, u nspecified Office Visit 05/28/2021 11:15a [facility] M19.90 Unspecified osteoarthritis, unspecified [...] hypercholesterolemia, u nspecified Office Visit 03/07/2021 10:00a [facility] M.[facility] Z01.810 Encounter for preprocedural cardiovascular examination [...] Other obesity due to excess mali logan Bang M.D. 08/28/2021 E78.00 Pure hypercholesterolemia, unspe cicoby Bang M.D. 05/28/2021 M19.90 Unspecified osteoarthritis, unsp [...] E66.09 Other obesity due to excess mali Bang M.D. 05/28/2021 E78.00 Pure hypercholesterolemia, unspe cicoby Bang M.D. 05/23/2021 I12.9 Hypertensive chronic kidney [...] 12/03/2021 7:50 am - Lab Schedule at [facility] * 12/04/2021 10:30 am - Juana Bang M.D. at [facility] * 12/04/2021 10:00 am - Nurse #2 at [facility] 08/28/2021 - Juana Bang M.D.* [...]
--- OUTSIDE RECORDS SUMMARY | 2021-10-27 10:25 | CCD ---
Author Author [facility] Organization [facility] Address Unknown Phone Unavailable Care Team Providers Care Jira Administrator Name Role Phone Fish, B Benjamin HERNANDEZ Unavailable Unavailable Fish, B Benjamin HERNANDEZ Unavailable Unavailable Fish, B Benjamin HERNANDEZ Unavailable Unavailable Fish, B Benjamin HERNANDEZ Unavailable Unavailable Fish, B Benjamin HERNANDEZ Unavailable Unavailable Fish, B Benjamin HERNANDEZ Unavailable Unavailable Fish, B Benjamin HERNANDEZ Unavailable Unavailable Fish, B Benjamin HERNANDEZ Unavailable Unavailable Fish, B Benjamin HERNANDEZ Unavailable Unavailable Fish, B Benjamin HERNANDEZ Unavailable Unavailable Fish, B Benjamin HERNANDEZ Unavailable Unavailable Fish, B Benjamin HERNANDEZ Unavailable Unavailable Fish, B Benjamin HERNANDEZ Unavailable Unavailable Fish, B Benjamin HERNANDEZ Unavailable Unavailable Fish, B Benjamin HERNANDEZ Unavailable Unavailable Fish, B Benjamin HERNANDEZ Unavailable Unavailable Fish, B Benjamin HERNANDEZ Unavailable Unavailable Fish, B Benjamin HERNANDEZ Unavailable Unavailable Fish, B Benjamin HERNANDEZ Unavailable Unavailable Fish, B Benjamin HERNANDEZ Unavailable Unavailable Fish, B Benjamin HERNANDEZ Unavailable Unavailable Fish, B Benjamin HERNANDEZ Unavailable Unavailable Fish, B Benjamin HERNANDEZ Unavailable Unavailable Fish, B Benjamin HERNANDEZ Unavailable Unavailable Fish, B Benjamin HERNANDEZ Unavailable Unavailable Fish, B Benjamin HERNANDEZ Unavailable Unavailable Fish, B Benjamin HERNANDEZ Unavailable Unavailable Fish, B Benjamin HERNANDEZ Unavailable Unavailable Fish, B Benjamin HERNANDEZ Unavailable Unavailable Fish, B Benjamin HERNANDEZ Unavailable Unavailable Fish, B Benjamin HERNANDEZ Unavailable Unavailable Fish, B Benjamin HERNANDEZ Unavailable Unavailable Fish, B Benjamin HERNANDEZ Unavailable Unavailable Fish, B Benjamin HERNANDEZ Unavailable Unavailable Fish, B Benjamin HERNANDEZ Unavailable Unavailable Fish, B Benjamin HERNANDEZ Unavailable Unavailable Fish, B Benjamin HERNANDEZ Unavailable Unavailable Fish, B Benjamin HERNANDEZ Unavailable Unavailable Fish, B Benjamin HERNANDEZ Unavailable Unavailable Fish, B Benjamin HERNANDEZ Unavailable Unavailable Fish, B Benjamin HERNANDEZ Unavailable Unavailable Fish, B Benjamin HERNANDEZ Unavailable Unavailable Fish, B Benjamin HERNANDEZ Unavailable Unavailable Fish, B Benjamin HERNANDEZ Unavailable Unavailable Fish, B Benjamin HERNANDEZ Unavailable Unavailable Fish, B Benjamin HERNANDEZ Unavailable Unavailable Fish, B Benjamin HERNANDEZ Unavailable Unavailable Fish, B Benjamin HERNANDEZ Unavailable Unavailable Fish, B Benjamin HERNANDEZ Unavailable Unavailable Fish, B Benjamin HERNANDEZ Unavailable Unavailable Fish, B Benjamin HERNANDEZ Unavailable Unavailable Fish, B Benjamin HERNANDEZ Unavailable Unavailable Fish, B Benjamin HERNANDEZ Unavailable Unavailable Fish, B Benjamin HERNANDEZ Unavailable Unavailable Fish, B Benjamin HERNANDEZ Unavailable Unavailable Fish, B Benjamin HERNANDEZ Unavailable Unavailable Fish, B Benjamin HERNANDEZ Unavailable Unavailable Fish, [facility], PA-C Unavailable Unavailabl e Fish, [facility], PA-C Unavailable Unavailabl e Fish, [facility], PA-C Unavailable Unavailabl e Fish, [facility], PA-C Unavailable Unavailabl e Fish, [facility], PA-C Unavailable Unavailabl e Fish, [facility], PA-C Unavailable Unavailabl e Fish, [facility], PA-C Unavailable Unavailabl e Fish, [facility], PA-C Unavailable Unavailabl e Fish, [facility], PA-C Unavailable Unavailabl e Fish, [facility], PA-C Unavailable Unavailabl e Fish, [facility], PA-C Unavailable Unavailabl e Fish, [facility], PA-C Unavailable Unavailabl e Fish, [facility], PA-C Unavailable Unavailabl e Fish, [facility], PA-C Unavailable Unavailabl e Fish, [facility], PA-C Unavailable Unavailabl e Fish, [facility], PA-C Unavailable Unavailabl e Fish, [facility], PA-C Unavailable Unavailabl e Fish, [facility], PA-C Unavailable Unavailabl e Fish, [facility], PA-C Unavailable Unavailabl e Fish, [facility], PA-C Unavailable Unavailabl e Fish, [facility], PA-C Unavailable Unavailabl e Fish, [facility], PA-C Unavailable Unavailabl e Fish, [facility], PA-C Unavailable Unavailabl e Fish, [facility], PA-C Unavailable Unavailabl e Fish, [facility], PA-C Unavailable Unavailabl e Fish, [facility], PA-C Unavailable Unavailabl e Fish, [facility], PA-C Unavailable Unavailabl e Fish, [facility], PA-C Unavailable Unavailabl e Fish, [facility], PA-C Unavailable Unavailabl e Fish, [facility], PA-C Unavailable Unavailabl e Fish, [facility], PA-C Unavailable Unavailabl e Fish, [facility], PA-C Unavailable Unavailabl e Fish, [facility], PA-C Unavailable Unavailabl e Fish, [facility], PA-C Unavailable Unavailabl e Fish, [facility], PA-C Unavailable Unavailabl e Fish, [facility], PA-C Unavailable UnavailMartir Maddox MD Unavailable Unavailable Martir Bang MD Unavailable Unavailable Martir Bang MD Unavailable Unavailable Martir Bang MD Unavailable Unavailable Martir Bang MD Unavailable Unavailable Martir Bang MD Unavailable Unavailable Martir Bang MD Unavailable Unavailable Martir Bang MD Unavailable Unavailable Martir Bang MD Unavailable Unavailable Martir Bang MD Unavailable Unavailable Martir Bang MD Unavailable Unavailable Martir Bang MD Unavailable Unavailable Martir Bang MD Unavailable Unavailable Martir Bang MD Unavailable Unavailable Martir Bang MD Unavailable Unavailable Martir Bang MD Unavailable Unavailable Martir Bang MD Unavailable Unavailable Martir Bang MD Unavailable Unavailable Martir Bang MD Unavailable Unavailable Martir Bang MD Unavailable Unavailable Martir Bang MD Unavailable Unavailable Martir Bang MD Unavailable Unavailable Martir Bang MD Unavailable Unavailable Martir Bang MD Unavailable Unavailable Martir Bang MD Unavailable Unavailable Martir Bang MD Unavailable Unavailable Martir Bang MD Unavailable Unavailable Martir Bang MD Unavailable Unavailable Martir Bang MD Unavailable Unavailable Martir Bang MD Unavailable Unavailable Martir Bang MD Unavailable Unavailable BetiMartir MD Unavailable Unavailable BetiMartir MD Unavailable Unavailable BetiMartir MD Unavailable Unavailable BetiMartir MD Unavailable Unavailable BetiMartir MD Unavailable Unavailable BetiMartir MD Unavailable Unavailable BetiMartir MD Unavailable Unavailable BetiMartir crockett MD Unavailable Unavailable BetiMartir MD Unavailable Unavailable Martir Bang MD Unavailable Unavailable BetiMartir MD Unavailable Unavailable BetiMartir MD Unavailable Unavailable BetiMartri MD Unavailable Unavailable BetiMartir MD Unavailable Unavailable BetiMartir MD Unavailable Unavailable BetiMartir MD Unavailable Unavailable BetiMartir MD Unavailable Unavailable BetiMartir gallegos MD Unavailable Unavailable BetiMartir MD Unavailable Unavailable BetiMartir MD Unavailable Unavailable Martir Bang MD Unavailable Unavailable Martir Bang MD Unavailable Unavailable Martir Bang MD Unavailable Unavailable Martir Bang MD Unavailable Unavailable Martir Bang MD Unavailable Unavailable Martir Bang MD Unavailable Unavailable Martir Bang MD Unavailable Unavailable Martir Bang MD Unavailable Unavailable Martir Bang MD Unavailable Unavailable Martir Bang MD Unavailable Unavailable Martir Bang MD Unavailable Unavailable Martir Bang MD Unavailable Unavailable Martir Bang MD Unavailable Unavailable Martir Bang MD Unavailable Unavailable Martir Bang MD Unavailable Unavailable Martir Bang MD Unavailable Unavailable Martir Bang MD Unavailable Unavailable Martir Bang MD Unavailable Unavailable Martir aBng MD Unavailable Unavailable Martir Bang MD Unavailable Unavailable Martir Bang MD Unavailable Unavailable Martir Bang MD Unavailable Unavailable Martir Bang MD Unavailable Unavailable Martir Bang MD Unavailable Unavailable Martir Bang MD Unavailable Unavailable Martir Bang MD Unavailable Unavailable Martir Bang MD Unavailable Unavailable Martir Bang MD Unavailable Unavailable Martir Bang MD Unavailable Unavailable BetiMartir gallegos MD Unavailable Unavailable BetiMartirie MD Unavailable Unavailable Beti, Martir Arias MD Unavailable Unavailable Beti, Martir Arias MD Unavailable Unavailable Beti, Martir Arias MD Unavailable Unavailable Daugherty, M Barratt PA Unavailable Unavailable Daugherty, M Barratt PA Unavailable Unavailable Daugherty, M Barratt PA Unavailable Unavailable Daugherty, M Barratt PA Unavailable Unavailable Daugherty, M Barratt PA Unavailable Unavailable Daugherty, M Barratt PA Unavailable Unavailable Daugherty, M Barratt PA Unavailable Unavailable Daugherty, M Barratt PA Unavailable Unavailable Daugherty, M Barratt PA Unavailable Unavailable Daugherty, M Barratt PA Unavailable Unavailable Daugherty, M Barratt PA Unavailable Unavailable Daugherty, M Barratt PA Unavailable Unavailable Daugherty, M Barratt PA Unavailable Unavailable Daugherty, M Barratt PA Unavailable Unavailable Daugherty, M Barratt PA Unavailable Unavailable Daugherty, M Barratt PA Unavailable Unavailable Daugherty, M Barratt PA Unavailable Unavailable Daugherty, M Barratt PA Unavailable Unavailable Daugherty, M Barratt PA Unavailable Unavailable Daugherty, M Barratt PA Unavailable Unavailable Daugherty, M Barratt PA Unavailable Unavailable Daugherty, M Barratt PA Unavailable Unavailable Daugherty, M Barratt PA Unavailable Unavailable Daugherty, M Barratt PA Unavailable Unavailable Daugherty, M Barratt PA Unavailable Unavailable Daugherty, M Barratt PA Unavailable Unavailable Daugherty, M Barratt PA Unavailable Unavailable Daugherty, M Barratt PA Unavailable Unavailable Daugherty, M Barratt PA Unavailable Unavailable Re-disclosure Warning The records that you are about to access may contain information from federally-assisted alcohol or drug abuse programs. If such information is present, then the following federally mandated warning applies: This information has been disclosed to you from records protected by federal confidentiality rules (42 CFR part 2). The federal rules prohibit you from making any further disclosure of this information unless further disclosure is expressly permitted by the written consent of the person to whom it pertains or as otherwise permitted by 42 CFR part 2. A general authorization for the release of medical or other information is NOT sufficient for this purpose. The Federal rules restrict any use of the information to criminally investigate or prosecute any alcohol or drug abuse patient.The records that you are about to access may contain highly sensitive health information, the redisclosure of which is protected by Article 27-F of the [place] State Public Health law. If you continue you may have access to information: Regarding HIV / AIDS; Provided by facilities licensed or operated by the [facility] Office of Mental Health; or Provided by the [facility] Office for People With Developmental Disabilities. If such information is present, then the following [facility] mandated warning applies: This information has been disclosed to you from confidential records which are protected by state law. State law prohibits you from making any further disclosure of this information without the specific written consent of the person to whom it pertains, or as otherwise permitted by law. Any unauthorized further disclosure in violation of state law may result in a fine or care home sentence or both. A general authorization for the release of medical or other information is NOT sufficient authorization for further disc losure. Family History Family Member Name Family Member Gender Family Member Status Date o f Status Description Data Source(s) Unknown Male Problem [facility] ([facility]) Unknown Female Problem [facility] ([facility]) Encounters Encounter Providers Location Date Indications Data Source(s ) Office Visit Attender: Evelyne SEARS PA-C Physical Therapy 10/11/2021 08:30:00 AM EST [facility] ([facility]) Office Visit Attender: Evelyne SEARS PA-C Physical Therapy 10/04/2021 08:15:00 AM EST [facility] ([facility]) Office Visit Attender: Evelyne SEARS PA-C Physical Therapy 09/27/2021 03:00:00 PM EDT [facility] ([facility]) Outpatient Attender: Evelyne SEARS PA-C Physical Therapy 09/05/2021 10:00:00 AM EDT [facility] ([facility]) Outpatient Attender: Juana Brooks 09:45:00 AM EDT [facility] ([facility] ) OFFICE OUTPATIENT VISIT 15 MINUTES Attender: Benjamin Dutta MD Phys ical Therapy 07/17/2021 09:15:00 AM EDT [facility] ([facility]) Outpatient Attender: Juana Brooks 11:15:00 AM EDT [facility] ([facility] ) Office Visit Attender: Benjamin Dutta MD Physical Therapy 2020 01:30:00 PM EDT [facility] ([facility]) Outpatient Attender: Evelyne SEARS PA-C Physical Therapy 04/23/2021 11:15:00 AM EDT [facility] ([facility]) Office Visit Attender: Evelyne SEARS PA-C Physical Therapy 04/11/2021 02:00:00 PM EDT [facility] ([facility]) Outpatient Attender: Juana Brooks 10:00:00 AM EDT [facility] ([facility] ) Office Visit Attender: Juana Brooks 01:30:00 PM EST [facility] ([facility] ) Office Visit Attender: Zoran ROGEL Physical Therapy 12:00:00 PM EST [facility] ([facility]) Outpatient Attender: Juana Brooks 07:45:00 AM EST [facility] ([facility] ) Immunizations Vaccine Date Status Description Data Source(s) COVID-19 VACCINE Moderna 09/13/2021 12:00:00 AM EDT completed [facility] Vaccine Series Complete: YESThis Data wa s Submitted to [facility] Via [email or web address]. This CVX code allows reporting of a vacc ination when formulation is unknown (for example, when recording a Influenza vaccination when noted on a vaccination card) 08/14/2021 09:48:00 AM EDT completed LEVON Ordonez ([facility]) COVID-19 VACCINE Moderna 01/11/2021 12:00:00 AM EST completed [facility] Vaccine Series Complete: YESThis Data wa s Submitted to [facility] Via [email or web address]. COVID-19 VACCINE Moderna 12/16/2020 12:00:00 AM EST completed [facility] Vaccine Series Complete: NOThis Data was Submitted to [facility] Via [email or web address]. Medications Medication Brand Name Start Date Product Form Dose Route Admi nistrative Instructions Pharmacy Instructions Status Indications Reaction Description Data Source(s) 100 mcg/0.5 mL 09/13/2021 12:00:00 AM EDT suspension 0 INJECT DIRECTED (THIRD DOSE) INJECT DIRECTED (THIRD DOSE) SOLD: 09/13/2021 [facility] 5 mg 08/29/2021 12:00:00 AM EDT tablet 90 TAKE ONE TABLET BY MOUTH EVERY DAY TAKE ONE TABLET BY MOUTH EVERY DAY SOLD: 08/30/2021 [facility] 600 mg 08/16/2021 12:00:00 AM EDT tablet 90 TAKE ONE TABLET BY MOUTH 2 TO 3 TIMES PER DAY TAKE ONE TABLET BY MOUTH 2 TO 3 TIMES PER DAY SOLD: 08/18/2021 [facility] 600 mg 08/16/2021 12:00:00 AM EDT tablet 90 TAKE ONE TABLET BY MOUTH 2 TO 3 TIMES PER DAY TAKE ONE TABLET BY MOUTH 2 TO 3 TIMES PER DAY SOLD: 10/02/2021 [facility] 240 mcg/0.7 mL 08/02/2021 12:00:00 AM EDT syringe 0 INJECT DIRECTED INJECT DIRECTED SOLD: 08/02/2021 [facility] 20 mg 07/25/2021 12:00:00 AM EDT capsule,delayed release (DR/EC) 90 TAKE ONE CAPSULE BY MOUTH EVERY DAY IF NEEDED TAKE ONE CAPSULE BY MOUTH EVERY DAY IF NEEDED SOLD: 07/25/2021 [facility] 600 mg 05/21/2021 12:00:00 AM EDT tablet 90 TAKE 1 TABLET BY MOUTH TWO TO THREE TIMES DAILY TAKE 1 TABLET BY MOUTH TWO TO THREE TIMES DAILY SOLD: 05/23/2021 [facility] 40 mg 05/21/2021 12:00:00 AM EDT tablet 90 TAKE ONE TABLET BY MOUTH AT BEDTIME TAKE ONE TABLET BY MOUTH AT BEDTIME SOLD: 05/23/2021 [facility] 40 mg 05/21/2021 12:00:00 AM EDT tablet 90 TAKE ONE TABLET BY MOUTH AT BEDTIME TAKE ONE TABLET BY MOUTH AT BEDTIME SOLD: 08/24/2021 [facility] 600 mg 05/21/2021 12:00:00 AM EDT tablet 90 TAKE 1 TABLET BY MOUTH TWO TO THREE TIMES DAILY TAKE 1 TABLET BY MOUTH TWO TO THREE TIMES DAILY SOLD: 07/03/2021 [facility] 5 % 04/25/2021 12:00:00 AM EDT cream 5 USE 5 TIMES DAILY FOR 7 DAYS THEN NEEDED USE 5 TIMES DAILY FOR 7 DAYS THEN NEEDED SOLD: 04/28/2021 [facility] Acetaminophen 300 MG / Codeine Phosphate 30 MG Oral Tablet [Tylenol with Codeine] Tylenol With Codeine #3 04/02/2021 12:00:00 AM EDT ORAL active [facility] ([facility]) Acetaminophen 300 MG / Codeine Phosphate 30 MG Oral Ta blet 300-30 mg ACETAMINOPHEN WITH CODEINE 04/02/2021 12:00:00 AM EDT tablet 30 TAKE 1-2 TABLETS BY MOUTH EVERY 4-6 HOURS NEEDED FOR PAIN AFTER SURGERY MAXIMUM DAILY DOSE = 8 TAKE 1-2 TABLETS BY MOUTH EVERY 4-6 HOUR S NEEDED FOR PAIN AFTER SURGERY MAXIMUM DAILY DOSE = 8 SOLD: 04/02/2021 [facility] 75 mg 03/26/2021 12:00:00 AM EDT capsule,extended releas e 24hr 270 TAKE THREE CAPSULES BY MOUTH EVERY DAY TAKE THREE CAPSULES BY MOUTH EVERY DAY SOLD: 09/06/2021 [facility] 75 mg 03/26/2021 12:00:00 AM EDT capsule,extended releas e 24hr 270 TAKE THREE CAPSULES BY MOUTH EVERY DAY TAKE THREE CAPSULES BY MOUTH EVERY DAY SOLD: 06/03/2021 [facility] 75 mg 03/26/2021 12:00:00 AM EDT capsule,extended releas e 24hr 270 TAKE THREE CAPSULES BY MOUTH EVERY DAY TAKE THREE CAPSULES BY MOUTH EVERY DAY SOLD: 03/30/2021 [facility] Cholecalciferol 1000 UNT Oral Tablet Vitamin D3 03/08/2021 12:00:00 A M EDT ORAL active [facility] ([facility]) 5 mg 02/28/2021 12:00:00 AM EDT tablet 90 TAKE ONE TABLET BY MOUTH EVERY DAY TAKE ONE TABLET BY MOUTH EVERY DAY SOLD: 05/23/2021 [facility] 5 mg 02/28/2021 12:00:00 AM EDT tablet 90 TAKE ONE TABLET BY MOUTH EVERY DAY TAKE ONE TABLET BY MOUTH EVERY DAY SOLD: 03/01/2021 [facility] 150 mg 02/25/2021 12:00:00 AM EDT capsule 8 TAKE FOUR CAPSULES BY MOUTH 1 HOUR PRIOR TO DENTAL APPOINTMENT TAKE FOUR CAPSULES BY MOUTH 1 HOUR PRIOR TO DENTAL APPOINTMENT SOLD: 02/26/2021 [facility] Clindamycin 150 MG Oral Capsule CLINDAMYCIN HCL 02/25/2021 12:00 :00 AM EDT capsule 8 TAKE FOUR CAPSULES BY MOUTH 1 HO UR PRIOR TO DENTAL APPOINTMENT TAKE FOUR CAPSULES BY MOUTH 1 HOUR PRIOR TO DENTAL APPOINTMENT SOLD: 08/18/2021 [facility] 600 mg 02/17/2021 12:00:00 AM EDT tablet 90 TAKE 1 TABLET BY MOUTH 2 - 3 TIMES PER DAY TAKE 1 TABLET BY MOUTH 2 - 3 TIMES PER DAY SOLD: 02/19/2021 [facility] 600 mg 02/17/2021 12:00:00 AM EDT tablet 90 TAKE 1 TABLET BY MOUTH 2 - 3 TIMES PER DAY TAKE 1 TABLET BY MOUTH 2 - 3 TIMES PER DAY SOLD: 04/02/2021 [facility] Covid-19 vaccine, Unspecified 01/14/2021 12:00:00 AM EST completed [facility] ([facility]) Medication administered onsite Covid-19 vaccine, Unspecified 12/17/2020 12:00:00 AM EST completed [facility] ([facility]) Medication administered onsite 40 mg 12/13/2020 12:00:00 AM EST tablet 90 TAKE ONE TABLET BY MOUTH AT BEDTIME TAKE ONE TABLET BY MOUTH AT BEDTIME SOLD: 03/12/2021 [facility] 40 mg 12/13/2020 12:00:00 AM EST tablet 90 TAKE ONE TABLET BY MOUTH AT BEDTIME TAKE ONE TABLET BY MOUTH AT BEDTIME SOLD: 12/14/2020 [facility] Lidocaine Hydrochloride 40 MG/ML Topical Cream Aspercreme W/ Lidocaine 12/04/2020 12:00:00 AM EST active [facility] ([facility]) 600 mg 11/21/2020 12:00:00 AM EST tablet 90 TAKE 1 TABLET BY MOUTH 2 - 3 TIMES PER DAY TAKE 1 TABLET BY MOUTH 2 - 3 TIMES PER DAY SOLD: 12/21/2020 [facility] 600 mg 11/21/2020 12:00:00 AM EST tablet 90 TAKE 1 TABLET BY MOUTH 2 - 3 TIMES PER DAY TAKE 1 TABLET BY MOUTH 2 - 3 TIMES PER DAY SOLD: 11/23/2020 [facility] 2 ML Sodium Hyaluronate 10 MG/ML Prefilled Syringe [Euflexxa ] Euflexxa 10/26/2020 12:00:00 AM EST active [facility] ([facility]) Lisinopril 40 MG Oral Tablet Lisinopril 09/24/2020 12:00:00 AM EST ORAL active [facility] ([facility]) 5 mg 08/28/2020 12:00:00 AM EDT tablet 90 TAKE ONE TABLET BY MOUTH EVERY DAY TAKE ONE TABLET BY MOUTH EVERY DAY SOLD: 08/30/2020 [facility] 5 mg 08/28/2020 12:00:00 AM EDT tablet 90 TAKE ONE TABLET BY MOUTH EVERY DAY TAKE ONE TABLET BY MOUTH EVERY DAY SOLD: 11/28/2020 [facility] Clindamycin 150 MG Oral Capsule CLINDAMYCIN HCL 08/27/2020 12:00 :00 AM EDT capsule 8 TAKE 4 CAPSULES BY MOUTH 1 HOUR PRIOR TO DENTAL APPOINTMENT TAKE 4 CAPSULES BY MOUTH 1 HOUR PRIOR TO DENTAL APPOINTMENT SOLD: 08/28/2020 [facility] Lisinopril 20 MG Oral Tablet Lisinopril 07/16/2020 12:00:00 AM EDT ORAL completed [facility] ([facility]) Hydrochlorothiazide 12.5 MG Oral Tablet Hydrochlorothiazide 06/12/2020 12:00:00 AM EDT ORAL completed [facility] ([facility]) Hydrochlorothiazide 12.5 MG Oral Tablet HYDROCHLOROTHIAZIDE 06/12/2020 12:00:00 AM EDT tablet 30 TAKE ONE TABLET BY MOUTH DAY TAKE ONE TABLET BY MOUTH EVERY DAY SOLD: 08/28/2020 [facility] 75 mg 02/28/2020 12:00:00 AM EDT capsule,extended releas e 24hr 270 TAKE THREE CAPSULES BY MOUTH EVERY DAY TAKE THREE CAPSULES BY MOUTH EVERY DAY SOLD: 12/21/2020 [facility] 600 mg 02/06/2020 12:00:00 AM EDT tablet 90 TAKE ONE TABLET BY MOUTH 2 TO 3 TIMES PER DAY TAKE ONE TABLET BY MOUTH 2 TO 3 TIMES PER DAY SOLD: 10/09/2020 [facility] Insurance Providers Payer name Policy type / Coverage type Policy ID Covered republican ID Covered republican's relationship to bates Policy Bates Plan Information [facility] Healthcare Commercial Indemnity [id number] Self Inde mnity [facility] Healthcare Commercial [id number] Self [id number] Medicare Natl Govt Servic Medicare Primary [id number] Self [id number] Medicare Natl Govt Servic Medicare Primary [id number] Self [id number] Medicare Natl Govt Servic Medicare Primary [id number] Self [id number] Medicare Natl Govt Servic Medicare Primary [id number] Self [id number] Medicare Natl Govt Servic Medicare Primary [id number] Self [id number] Medicare Natl Govt Servic Medicare Primary [id number] Self [id number] Medicare Natl Govt Servic Medicare Primary [id number] Self [id number] Medicare Natl Govt Servic Medicare Primary [id number] Self [id number] Medicare Natl Govt Servic Medicare Primary [id number] Self [id number] Medicare Natl Govt Servic Medicare Primary [id number] Self [id number] Medicare Natl Govt Servic Medicare Primary [id number] Self [id number] Medicare Natl Govt Servic Medicare Primary [id number] Self [id number] Medicare Natl Govt Servic Medicare Primary [id number] Self [id number] Medicare Natl Govt Servic Medicare Primary [id number] Self Medicare Natl Govt Serv Medicare Primary [id number] Self [id number] Medicare Natl Govt Serv Medicare Primary [id number] Self [id number] Medicare Natl Govt Serv Medicare Primary [id number] Self 0 [id number] [place] [id number] Self [id number] [place] Primary [id number] Self [id number] MVP (pr) Commercial [id number] Self [id number] [place] (pr) Medigap Part B [id number] 2.16840.1.883701.3.227.99.991.139 136.0 [id number] Medicare [place] Primary [id number] 2.16.840.1.039471.3.227.99.991.462410.0 Self [id number] [place] (pr) Medigap Part B [id number] 2.16840.1.964664.3.227.99.991.139 136.0 [id number] [place] (pr) Medigap Part B [id number] 2.16.840.1.717292.3.227.99.991.139 136.0 [id number] Medicare [place] Medicare Primary [id number] 2.0.1.183769.3.227.99.991.520716.0 Self [id number] [place] (pr) Medigap Part B [id number] [place] (pr) Medigap Part B [id number] 2.0.1.832094.3.227.99.991.139 136.0 [id number] Medicare [place] Medicare Primary [id number] 2.0.1.334190.3.227.99.991.258073.0 Self [id number] Medicare [place] Medicare Primary [id number] Self [id number] [place] (pr) Medigap Part B [id number] 2.0.1.453837.3.227.99.991.139 136.0 [id number] Medicare [place] Medicare Primary [id number] 2.0.1.034577.3.227.99.991.337295.0 Self [id number] Medicare [place] Primary [id number] 2.0.1.000493.3.227.99.991.734043.0 Self [id number] [place] (pr) Medigap Part B [id number] 2.0.1.619287.3.227.99.991.139 136.0 [id number] [place] (pr) Medigap Part B [id number] 2.0.1.799188.3.227.99.991.139 136.0 [id number] Umr (New [place]) Medigap Part B [id number] 2.16.840.1.668230.3.227 .99.4595.4340.0 Family Dependent [id number] MEDICARE [id number] SP [id number] A Aso Medigap Part B [id number] 2.16.840.1.444836.3.227.99.4595.434 0.0 Self [id number] Umr [place] Ppo Medigap Part B [id number] 2.16.840.1.113363.3.227.9 9.4595.4340.0 Family Dependent [id number] Aso Medigap Part B [id number] 2.16.840.1.961485.3.227.99.4595.434 0.0 Self [id number] Umr [place] Ppo Medigap Part B [id number] 2.16.840.1.386978.3.227.9 9.4595.4340.0 Family Dependent [id number] Aso Medigap Part B [id number] 2.16.840.1.134267.3.227.99.4595.434 0.0 Self [id number] [place] Ppo Medigap Part B [id number] 2.16.840.1.016625.3.227.99 .4595.4340.0 Family Dependent [id number] Aso Medigap Part B [id number] 2.16.840.1.403087.3.227.99.4595.434 0.0 Self [id number] [place] Ppo Medigap Part B [id number] 2.16.840.1.015127.3.227.99 .4595.4340.0 Family Dependent [id number] Aso Medigap Part B [id number] 2.16.840.1.261657.3.227.99.4595.434 0.0 Self [id number] [place] Ppo Medigap Part B [id number] 2.16.840.1.369002.3.227.99 .4595.4340.0 Family Dependent [id number] Aso Medigap Part B [id number] 2.16.840.1.182628.3.227.99.4595.434 0.0 Self [id number] [place] Ppo Medigap Part B [id number] 2.16.840.1.786910.3.227.99 .4595.4340.0 Family Dependent [id number] Aso Medigap Part B 2958 Self [place] Ppo Medigap Part B [id number] 2959 Family Dependent 910 [facility] [id number] SP [id number] MEDICARE [id number] SP [id number] A [facility] PHY [id number] SP [id number] [facility] [id number] HU2 [id number] [facility] PPO S [id number] S [id number] 900 [id number] Umr [place] Ppo Medigap Part B [id number] 2.840.1.458224.3.227.9 9.4595.4340.0 Family Dependent [id number] R [facility] [id number] HU2 [id number] [facility] CARE [id number] SP 82 [id number] UMR O [id number] S [id number] MEDICARE C [id number] S [id number] [facility] O [id number] S 82 [id number] SELF PAY ONLY [id number] SP [id number] Aso Medigap Part B [id number] 2.0.1.037428.3.227.99.4595.434 0.0 Self [id number] [place]/Umr (Old) Medigap Part B [id number] 2.840.1.321319.3.227 .99.4595.4340.0 Family Dependent [id number] Aso Medigap Part B [id number] Self [id number] [place]/Umr (Old) Medigap Part B [id number] Family Dependent [id number] Umr (pr) Medigap Part B [id number] Self [id number] UMR -O/P [id number] 01 [id number] MEDICARE PART A -O/P [id number] 18 [id number] [facility]-O/P [id number] 18 [id number] [facility] [id number] SP 82 [id number] MEDICARE [id number] SP [id number] A Aso Medigap Part B [id number] 2.16.840.1.008938.3.227.99.4595.434 0.0 Self [id number] [place]/Umr (Old) Medigap Part B [id number] 2.16.840.1.350153.3.227 .99.4595.4340.0 Family Dependent [id number] UMR O [id number] P [id number] MEDICARE C [id number] S [id number] A Aso Medigap Part B [id number] 2.16.840.1.968420.3.227.99.4595.434 0.0 Self [id number] [place]/Umr (Old) Medigap Part B [id number] 2.16.840.1.826215.3.227 .99.4595.4340.0 Family Dependent [id number] [facility] PPO O [id number] S [id number] Aso Medigap Part B [id number] 2.16.840.1.968347.3.227.99.4595.434 0.0 Self [id number] [place]/Umr (Old) Medigap Part B [id number] 2.16.840.1.482548.3.227 .99.4595.4340.0 Family Dependent [id number] Aso Medigap Part B [id number] 2.16.840.1.388342.3.227.99.4595.434 0.0 Self [id number] [place]/Umr (Old) Medigap Part B [id number] 2.16.840.1.341404.3.227 .99.4595.4340.0 Family Dependent [id number] Aso Medigap Part B [id number] 2.16.840.1.444893.3.227.99.4595.434 0.0 Self [id number] [place]/Umr (Old) Medigap Part B [id number] 2.16.840.1.819281.3.227 .99.4595.4340.0 Family Dependent [id number] Aso Medigap Part B [id number] 2.16.840.1.278240.3.227.99.4595.434 0.0 Self [id number] [place]/Umr (Old) Medigap Part B [id number] 2.16.840.1.349054.3.227 .99.4595.4340.0 Family Dependent [id number] Aso Medigap Part B [id number] 2.16.840.1.240908.3.227.99.4595.434 0.0 Self [id number] MEDICARE [id number] SP [id number] Aso Medigap Part B [id number] 2.16.840.1.484445.3.227.99.4595.434 0.0 Self [id number] Umr [place] Ppo Medigap Part B [id number] 2.16.840.1.972004.3.227.9 9.4595.4340.0 Family Dependent [id number] P[facility] [id number] [facility] [id number] Problems, Conditions, and Diagnoses No Information Surgeries/Procedures Procedure Description Date Indications Data Source(s) ARTHROCENTESIS ASPIR&/INJECTION MAJOR JT/BURSA 021 12:00:00 AM EST [facility] ([facility]) ARTHROCENTESIS ASPIR&/INJECTION MAJOR JT/BURSA 021 12:00:00 AM EST [facility] ([facility] ) ARTHROCENTESIS ASPIR&/INJECTION MAJOR JT/BURSA 12:00:00 AM EDT [facility] ([facility]) ARTHROCENTESIS ASPIR&/INJECTION MAJOR JT/BURSA 12:00:00 AM EDT [facility] ([facility]) RADIOLOGIC EXAM KNEE COMPLETE 4/MORE VIEWS 09/05/2021 12:00:00 AM EDT [facility] ([facility]) OFFICE OUTPATIENT VISIT 25 MINUTES 09/05/2021 12:00:00 AM EDT [facility] ([facility]) OFFICE OUTPATIENT VISIT 25 MINUTES 08/28/2021 12:00:00 AM EDT [facility] ([facility]) OFFICE OUTPATIENT VISIT 15 MINUTES 07/17/2021 12:00:00 AM EDT [facility] ([facility]) THERAPEUTIC PX 1/> AREAS EACH 15 MIN EXERCISES 12:00:00 AM EDT [facility] ([facility]) THERAPEUTIC PX 1/> AREAS EACH 15 MIN EXERCISES 12:00:00 AM EDT [facility] ([facility]) APPLICATION MODALITY 1/> AREAS HOT/COLD PACKS 06/03/20 12:00:00 AM EDT [facility] ([facility] ) THERAPEUTIC PX 1/> AREAS EACH 15 MIN EXERCISES 12:00:00 AM EDT [facility] ([facility] ) THERAPEUTIC PX 1/> AREAS EACH 15 MIN EXERCISES 12:00:00 AM EDT [facility] ([facility] ) OFFICE OUTPATIENT VISIT 25 MINUTES 05/28/2021 12:00:00 AM EDT [facility] ([facility]) OFFICE OUTPATIENT VISIT 15 MINUTES 05/28/2021 12:00:00 AM EDT [facility] ([facility] ) OFFICE OUTPATIENT VISIT 15 MINUTES 05/23/2021 12:00:00 AM EDT [facility] ([facility] ) OFFICE OUTPATIENT VISIT 25 MINUTES 05/23/2021 12:00:00 AM EDT [facility] ([facility]) THERAPEUTIC PX 1/> AREAS EACH 15 MIN EXERCISES 12:00:00 AM EDT [facility] ([facility]) THERAPEUTIC PX 1/> AREAS EACH 15 MIN EXERCISES 12:00:00 AM EDT [facility] ([facility] ) THERAPEUTIC PX 1/> AREAS EACH 15 MIN EXERCISES 12:00:00 AM EDT [facility] ([facility] ) APPLICATION MODALITY 1/> AREAS HOT/COLD PACKS 05/13/20 12:00:00 AM EDT [facility] ([facility] ) APPLICATION MODALITY 1/> AREAS HOT/COLD PACKS 05/10/20 12:00:00 AM EDT [facility] ([facility] ) THERAPEUTIC PX 1/> AREAS EACH 15 MIN EXERCISES 12:00:00 AM EDT [facility] ([facility] ) THERAPEUTIC PX 1/> AREAS EACH 15 MIN EXERCISES 12:00:00 AM EDT [facility] ([facility] ) THERAPEUTIC PX 1/> AREAS EACH 15 MIN EXERCISES 12:00:00 AM EDT [facility] ([facility] ) THERAPEUTIC PX 1/> AREAS EACH 15 MIN EXERCISES 12:00:00 AM EDT [facility] ([facility] ) APPLICATION MODALITY 1/> AREAS HOT/COLD PACKS 04/26/20 12:00:00 AM EDT [facility] ([facility] ) THERAPEUTIC PX 1/> AREAS EACH 15 MIN EXERCISES 12:00:00 AM EDT [facility] ([facility] ) THERAPEUTIC PX 1/> AREAS EACH 15 MIN EXERCISES 12:00:00 AM EDT [facility] ([facility] ) ARTHROCENTESIS ASPIR&/INJECTION MAJOR JT/BURSA 12:00:00 AM EDT [facility] ([facility] ) RADEX SPINE CRV COMPL W/OBLQ&FLEX&/XTN STDS 04/23/2021 12:00:00 AM EDT [facility] ([facility] ) RADEX SHOULDER COMPLETE MINIMUM 2 VIEWS 04/23/2021 12: 00:00 AM EDT [facility] ([facility] ) OFFICE OUTPATIENT VISIT 25 MINUTES 04/23/2021 12:00:00 AM EDT [facility] ([facility] ) THERAPEUTIC PX 1/> AREAS EACH 15 MIN EXERCISES 021 12:00:00 AM EDT [facility] ([facility] ) THERAPEUTIC PX 1/> AREAS EACH 15 MIN EXERCISES 12:00:00 AM EDT [facility] ([facility] ) THERAPEUTIC PX 1/> AREAS EACH 15 MIN EXERCISES 12:00:00 AM EDT [facility] ([facility] ) THERAPEUTIC PX 1/> AREAS EACH 15 MIN EXERCISES 12:00:00 AM EDT [facility] ([facility] ) THERAPEUTIC PX 1/> AREAS EACH 15 MIN EXERCISES 12:00:00 AM EDT [facility] ([facility] ) Re-Eval Of PT Established Plan Of Care 20Mins Face To Face P T/Fam 04/04/2021 12:00:00 AM EDT [facility] ([facility] ) Arthroscopy Knee W/Meniscectomy Inc Chondroplasty (Med & Lat eral) 04/02/2021 12:00:00 AM EDT [facility] ([facility] ) THERAPEUTIC PX 1/> AREAS EACH 15 MIN EXERCISES 12:00:00 AM EDT [facility] ([facility] ) MANUAL THERAPY TQS 1/> REGIONS EACH 15 MINUTES 12:00:00 AM EDT [facility] ([facility] ) THERAPEUTIC PX 1/> AREAS EACH 15 MIN EXERCISES 12:00:00 AM EDT [facility] ([facility] ) MANUAL THERAPY TQS 1/> REGIONS EACH 15 MINUTES 12:00:00 AM EDT [facility] ([facility] ) THERAPEUTIC PX 1/> AREAS EACH 15 MIN EXERCISES 021 12:00:00 AM EDT [facility] ([facility] ) MANUAL THERAPY TQS 1/> REGIONS EACH 15 MINUTES 021 12:00:00 AM EDT [facility] ([facility] ) THERAPEUTIC PX 1/> AREAS EACH 15 MIN EXERCISES 12:00:00 AM EDT [facility] ([facility] ) MANUAL THERAPY TQS 1/> REGIONS EACH 15 MINUTES 12:00:00 AM EDT [facility] ([facility] ) THERAPEUTIC PX 1/> AREAS EACH 15 MIN EXERCISES 12:00:00 AM EDT [facility] ([facility] ) MANUAL THERAPY TQS 1/> REGIONS EACH 15 MINUTES 12:00:00 AM EDT [facility] ([facility] ) THERAPEUTIC PX 1/> AREAS EACH 15 MIN EXERCISES 12:00:00 AM EDT [facility] ([facility] ) MANUAL THERAPY TQS 1/> REGIONS EACH 15 MINUTES 12:00:00 AM EDT [facility] ([facility] ) ECG ROUTINE ECG W/LEAST 12 LDS W/I&R 03/07/2021 12:00: 00 AM EDT [facility] ([facility]) OFFICE OUTPATIENT VISIT 25 MINUTES 03/07/2021 12:00:00 AM EDT [facility] ([facility]) THERAPEUTIC PX 1/> AREAS EACH 15 MIN EXERCISES 12:00:00 AM EDT [facility] ([facility] ) THERAPEUTIC PX 1/> AREAS EACH 15 MIN EXERCISES 12:00:00 AM EDT [facility] ([facility] ) MANUAL THERAPY TQS 1/> REGIONS EACH 15 MINUTES 12:00:00 AM EDT [facility] ([facility] ) APPLICATION MODALITY 1/> AREAS HOT/COLD PACKS 03/01/20 21 12:00:00 AM EDT [facility] ([facility] ) THERAPEUTIC PX 1/> AREAS EACH 15 MIN EXERCISES 12:00:00 AM EDT [facility] ([facility] ) MANUAL THERAPY TQS 1/> REGIONS EACH 15 MINUTES 12:00:00 AM EDT [facility] ([facility] ) THERAPEUTIC PX 1/> AREAS EACH 15 MIN EXERCISES 12:00:00 AM EDT [facility] ([facility] ) MANUAL THERAPY TQS 1/> REGIONS EACH 15 MINUTES 12:00:00 AM EDT [facility] ([facility] ) THERAPEUTIC PX 1/> AREAS EACH 15 MIN EXERCISES 12:00:00 AM EDT [facility] ([facility] ) MANUAL THERAPY TQS 1/> REGIONS EACH 15 MINUTES 12:00:00 AM EDT [facility] ([facility] ) THERAPEUTIC PX 1/> AREAS EACH 15 MIN EXERCISES 12:00:00 AM EDT [facility] ([facility] ) THERAPEUTIC PX 1/> AREAS EACH 15 MIN EXERCISES 12:00:00 AM EDT [facility] ([facility] ) MANUAL THERAPY TQS 1/> REGIONS EACH 15 MINUTES 12:00:00 AM EDT [facility] ([facility] ) THERAPEUTIC PX 1/> AREAS EACH 15 MIN EXERCISES 12:00:00 AM EDT [facility] ([facility] ) OFFICE OUTPATIENT VISIT 25 MINUTES 02/08/2021 12:00:00 AM EDT [facility] ([facility] ) THERAPEUTIC PX 1/> AREAS EACH 15 MIN EXERCISES 12:00:00 AM EDT [facility] ([facility] ) MANUAL THERAPY TQS 1/> REGIONS EACH 15 MINUTES 12:00:00 AM EDT [facility] ([facility] ) MRI Lower Extremity Any Joint 02/04/2021 12:00:00 AM E DT [facility] ([facility] ) MRI Lower Extremity Any Joint 02/04/2021 12:00:00 AM E DT [facility] ([facility] ) THERAPEUTIC PX 1/> AREAS EACH 15 MIN EXERCISES 12:00:00 AM EDT [facility] ([facility] ) MANUAL THERAPY TQS 1/> REGIONS EACH 15 MINUTES 12:00:00 AM EDT [facility] ([facility] ) THERAPEUTIC PX 1/> AREAS EACH 15 MIN EXERCISES 12:00:00 AM EST [facility] ([facility] ) OFFICE OUTPATIENT VISIT 25 MINUTES 01/31/2021 12:00:00 AM EST [facility] ([facility] ) THERAPEUTIC PX 1/> AREAS EACH 15 MIN EXERCISES 12:00:00 AM EST [facility] ([facility]) THERAPEUTIC PX 1/> AREAS EACH 15 MIN EXERCISES 12:00:00 AM EST [facility] ([facility] ) OFFICE OUTPATIENT VISIT 25 MINUTES 01/28/2021 12:00:00 AM EST [facility] ([facility] ) THERAPEUTIC PX 1/> AREAS EACH 15 MIN EXERCISES 12:00:00 AM EST [facility] ([facility] ) MANUAL THERAPY TQS 1/> REGIONS EACH 15 MINUTES 12:00:00 AM EST [facility] ([facility] ) Mammogram 01/24/2021 12:00:00 AM EST M EDKETURAH ([facility]) MRI Lower Extremity Any Joint 01/23/2021 12:00:[address] [facility] ([facility] ) MRI Lower Extremity Any Joint 01/23/2021 12:00:[address] [facility] ([facility] ) Ultrasound, Each 15 Min, Constant Attendance 12:00:00 AM EST [facility] ([facility] ) THERAPEUTIC PX 1/> AREAS EACH 15 MIN EXERCISES 12:00:00 AM EST [facility] ([facility] ) Ultrasound, Each 15 Min, Constant Attendance 12:00:00 AM EST [facility] ([facility] ) THERAPEUTIC PX 1/> AREAS EACH 15 MIN EXERCISES 12:00:00 AM EST [facility] ([facility] ) THERAPEUTIC PX 1/> AREAS EACH 15 MIN EXERCISES 12:00:00 AM EST [facility] ([facility] ) Physical Therapy Eval - Low Complexity 01/16/2021 12:0 0:00 AM EST [facility] ([facility] ) Ultrasound, Each 15 Min, Constant Attendance 12:00:00 AM EST [facility] ([facility] ) Bone Mineral Density Test 01/15/2021 12:00:00 AM EST [facility] ([facility]) ARTHROCENTESIS ASPIR&/INJECTION MAJOR JT/BURSA 021 12:00:00 AM EST [facility] ([facility] ) OFFICE OUTPATIENT VISIT 25 MINUTES 01/14/2021 12:00:00 AM EST [facility] ([facility] ) Ultrasound, Each 15 Min, Constant Attendance 12:00:00 AM EST [facility] ([facility] ) THERAPEUTIC PX 1/> AREAS EACH 15 MIN EXERCISES 12:00:00 AM EST [facility] ([facility] ) MANUAL THERAPY TQS 1/> REGIONS EACH 15 MINUTES 12:00:00 AM EST [facility] ([facility]) Ultrasound, Each 15 Min, Constant Attendance 12:00:00 AM EST [facility] ([facility]) THERAPEUTIC PX 1/> AREAS EACH 15 MIN EXERCISES 12:00:00 AM EST [facility] ([facility]) MANUAL THERAPY TQS 1/> REGIONS EACH 15 MINUTES 12:00:00 AM EST [facility] ([facility]) MANUAL THERAPY TQS 1/> REGIONS EACH 15 MINUTES 12:00:00 AM EST [facility] ([facility]) THERAPEUTIC PX 1/> AREAS EACH 15 MIN EXERCISES 12:00:00 AM EST [facility] ([facility] ) Ultrasound, Each 15 Min, Constant Attendance 12:00:00 AM EST [facility] ([facility] ) APPLICATION MODALITY 1/> AREAS HOT/COLD PACKS 01/04/20 21 12:00:00 AM EST [facility] ([facility]) APPLICATION MODALITY 1/> AREAS HOT/COLD PACKS 01/02/20 21 12:00:00 AM EST [facility] ([facility] ) Ultrasound, Each 15 Min, Constant Attendance 12:00:00 AM EST [facility] ([facility]) THERAPEUTIC PX 1/> AREAS EACH 15 MIN EXERCISES 12:00:00 AM EST [facility] ([facility]) MANUAL THERAPY TQS 1/> REGIONS EACH 15 MINUTES 12:00:00 AM EST [facility] ([facility]) THERAPEUTIC PX 1/> AREAS EACH 15 MIN EXERCISES 021 12:00:00 AM EST [facility] ([facility]) MANUAL THERAPY TQS 1/> REGIONS EACH 15 MINUTES 12:00:00 AM EST [facility] ([facility]) THERAPEUTIC PX 1/> AREAS EACH 15 MIN EXERCISES 021 12:00:00 AM EST [facility] ([facility]) MANUAL THERAPY TQS 1/> REGIONS EACH 15 MINUTES 021 12:00:00 AM EST [facility] ([facility]) THERAPEUTIC PX 1/> AREAS EACH 15 MIN EXERCISES 12:00:00 AM EST [facility] ([facility] ) MANUAL THERAPY TQS 1/> REGIONS EACH 15 MINUTES 12:00:00 AM EST [facility] ([facility] ) Ultrasound, Each 15 Min, Constant Attendance 12:00:00 AM EST [facility] ([facility] ) Re-Eval Of PT Established Plan Of Care 20Mins Face To Face P T/Fam 12/24/2020 12:00:00 AM EST [facility] ([facility] ) OFFICE OUTPATIENT VISIT 25 MINUTES 12/04/2020 12:00:00 AM EST [facility] ([facility]) ARTHROCENTESIS ASPIR&/INJECTION MAJOR JT/BURSA 12:00:00 AM EST [facility] ([facility] ) ARTHROCENTESIS ASPIR&/INJECTION MAJOR JT/BURSA 12:00:00 AM EST [facility] ([facility] ) ARTHROCENTESIS ASPIR&/INJECTION MAJOR JT/BURSA 12:00:00 AM EST [facility] ([facility] ) THERAPEUTIC PX 1/> AREAS EACH 15 MIN EXERCISES 12:00:00 AM EST [facility] ([facility] ) MANUAL THERAPY TQS 1/> REGIONS EACH 15 MINUTES 12:00:00 AM EST [facility] ([facility] ) THERAPEUTIC PX 1/> AREAS EACH 15 MIN EXERCISES 12:00:00 AM EST [facility] ([facility] ) MANUAL THERAPY TQS 1/> REGIONS EACH 15 MINUTES 12:00:00 AM EST [facility] ([facility] ) THERAPEUTIC PX 1/> AREAS EACH 15 MIN EXERCISES 12:00:00 AM EST [facility] ([facility] ) MANUAL THERAPY TQS 1/> REGIONS EACH 15 MINUTES 12:00:00 AM EST [facility] ([facility] ) THERAPEUTIC PX 1/> AREAS EACH 15 MIN EXERCISES 12:00:00 AM EST [facility] ([facility] ) MANUAL THERAPY TQS 1/> REGIONS EACH 15 MINUTES 12:00:00 AM EST [facility] ([facility]) THERAPEUTIC PX 1/> AREAS EACH 15 MIN EXERCISES 12:00:00 AM EST [facility] ([facility]) MANUAL THERAPY TQS 1/> REGIONS EACH 15 MINUTES 12:00:00 AM EST [facility] ([facility]) THERAPEUTIC PX 1/> AREAS EACH 15 MIN EXERCISES 12:00:00 AM EST [facility] ([facility]) MANUAL THERAPY TQS 1/> REGIONS EACH 15 MINUTES 12:00:00 AM EST [facility] ([facility] ) THERAPEUTIC PX 1/> AREAS EACH 15 MIN EXERCISES 12:00:00 AM EST [facility] ([facility]) MANUAL THERAPY TQS 1/> REGIONS EACH 15 MINUTES 12:00:00 AM EST [facility] ([facility] ) MANUAL THERAPY TQS 1/> REGIONS EACH 15 MINUTES 12:00:00 AM EST [facility] ([facility]) THERAPEUTIC PX 1/> AREAS EACH 15 MIN EXERCISES 12:00:00 AM EST [facility] ([facility]) THERAPEUTIC PX 1/> AREAS EACH 15 MIN EXERCISES 12:00:00 AM EST [facility] ([facility]) MANUAL THERAPY TQS 1/> REGIONS EACH 15 MINUTES 12:00:00 AM EST [facility] ([facility]) THERAPEUTIC PX 1/> AREAS EACH 15 MIN EXERCISES 12:00:00 AM EDT [facility] ([facility]) MANUAL THERAPY TQS 1/> REGIONS EACH 15 MINUTES 12:00:00 AM EDT [facility] ([facility]) THERAPEUTIC PX 1/> AREAS EACH 15 MIN EXERCISES 12:00:00 AM EDT [facility] ([facility]) MANUAL THERAPY TQS 1/> REGIONS EACH 15 MINUTES 12:00:00 AM EDT [facility] ([facility]) THERAPEUTIC PX 1/> AREAS EACH 15 MIN EXERCISES 12:00:00 AM EDT MEDENT ([facility]) MANUAL THERAPY TQS 1/> REGIONS EACH 15 MINUTES 12:00:00 AM EDT MED[facility] ([facility]) THERAPEUTIC PX 1/> AREAS EACH 15 MIN EXERCISES 12:00:00 AM EDT MEDENT ([facility]) MANUAL THERAPY TQS 1/> REGIONS EACH 15 MINUTES 12:00:00 AM EDT MED[facility] ([facility]) THERAPEUTIC PX 1/> AREAS EACH 15 MIN EXERCISES 12:00:00 AM EDT MEDENT ([facility]) MANUAL THERAPY TQS 1/> REGIONS EACH 15 MINUTES 12:00:00 AM EDT MED[facility] ([facility]) THERAPEUTIC PX 1/> AREAS EACH 15 MIN EXERCISES 12:00:00 AM EDT MEDENT ([facility]) MANUAL THERAPY TQS 1/> REGIONS EACH 15 MINUTES 12:00:00 AM EDT MED[facility] ([facility] THERAPEUTIC PX 1/> AREAS EACH 15 MIN EXERCISES 12:00:00 AM EDT MED[facility] ([facility]) MANUAL THERAPY TQS 1/> REGIONS EACH 15 MINUTES 12:00:00 AM EDT MEDENT ([facility]) THERAPEUTIC PX 1/> AREAS EACH 15 MIN EXERCISES 12:00:00 AM EDT MEDENT ([facility]) MANUAL THERAPY TQS 1/> REGIONS EACH 15 MINUTES 12:00:00 AM EDT MEDENT ([facility]) THERAPEUTIC PX 1/> AREAS EACH 15 MIN EXERCISES 12:00:00 AM EDT MEDENT ([facility]) MANUAL THERAPY TQS 1/> REGIONS EACH 15 MINUTES 12:00:00 AM EDT MED[facility] ([facility]) THERAPEUTIC PX 1/> AREAS EACH 15 MIN EXERCISES 12:00:00 AM EDT MED[facility] ([facility]) MANUAL THERAPY TQS 1/> REGIONS EACH 15 MINUTES 12:00:00 AM EDT MED[facility] ([facility]) THERAPEUTIC PX 1/> AREAS EACH 15 MIN EXERCISES 12:00:00 AM EDT MED[facility] ([facility]) MANUAL THERAPY TQS 1/> REGIONS EACH 15 MINUTES 020 12:00:00 AM EDT MED[facility] ([facility]) Results ID Date Data Source [id number] 08/28/2021 09:39:00 AM EDT [facility] ([facility]) Name Value Range Interpretation Code Description Data Krissy rce(s) Supporting Document(s) Glucose [Mass/volume] in Serum or Plasma 86 mg/dL 74-99 MED[facility] ([facility]) 100-125 mg/dL PRE-DIABETES/FASTING >126 mg/dL DIABETES/FASTING Urea nitrogen [Mass/volume] in Serum or Plasma 22 mg/dL 7-18 MED[facility] ([facility]) Creatinine 1.0 mg/dL 0.6-1.3 [facility] ([facility]) Sodium [Moles/volume] in Serum or Plasma 146 meq/L 136-145 MED[facility] ([facility]) Potassium [Moles/volume] in Serum or Plasma 4.2 meq/L 3.5-5.1 [facility] ([facility]) Calcium [Mass/volume] in Serum or Plasma 9.5 mg/dL 8.5-10.1 [facility] ([facility]) Carbon dioxide, total [Moles/volume] in Serum or Plasma 29 meq/L 21 -32 [facility] ([facility]) Chloride [Moles/volume] in Serum or Plasma 108 meq/L 98-107 [facility] ([facility]) Glomerular filtration rate/1.73 sq M pre dicted among non-blacks [Volume Rate/Area] in Serum or Plasma by Creatinine-based formula (MDRD) 55 mL/min [facility] ([facility]) Glomerular filtration rate/1.73 sq M pre dicted among blacks [Volume Rate/Area] in Serum or Plasma by Creatinine-based formula (MDRD) [facility] <content>CHRONIC KIDNEY DISEASE STAGING PER NKF</content>
<content></content>
<content>STAGE I & II GFR >= 60 NORMAL TO MILDLY DECREASED</content>
<content>STAGE III GFR 30-59 MODERATELY DECREASED</content>
<content>STAGE IV GFR 15-29 SEVERELY DECREASED</content>
<content>STAGE V GFR <15 VERY LITTLE GFR LEFT</content>
<content>ESRD GFR <15 ON CORNER BLOCK CUTTER</content>
<content></content> ID Date Data Source [id number] 05/23/2021 08:49:00 AM EDT [facility] ([facility]) Name Value Range Interpretation Code Description Data Krissy rce(s) Supporting Document(s) Glucose [Mass/volume] in Serum or Plasma 103 mg/dL 74-99 [facility] ([facility]) 100-125 mg/dL PRE-DIABETES/FASTING >126 mg/dL DIABETES/FASTING Urea nitrogen [Mass/volume] in Serum or Plasma 21 mg/dL 7-18 [facility] ([facility]) Creatinine 1.1 mg/dL 0.6-1.3 [facility] ([facility]) Sodium [Moles/volume] in Serum or Plasma 145 meq/L 136-145 [facility] ([facility]) Carbon dioxide, total [Moles/volume] in Serum or Plasma 34 meq/L 21 -32 [facility] ([facility]) Potassium [Moles/volume] in Serum or Plasma 3.9 meq/L 3.5-5.1 [facility] ([facility]) Chloride [Moles/volume] in Serum or Plasma 108 meq/L 98-107 [facility] ([facility]) Glomerular filtration rate/1.73 sq M pre dicted among non-blacks [Volume Rate/Area] in Serum or Plasma by Creatinine-based formula (MDRD) 49 mL/min [facility] ([facility]) Calcium [Mass/volume] in Serum or Plasma 8.9 mg/dL 8.5-10.1 [facility] ([facility]) Glomerular filtration rate/1.73 sq M pre dicted among blacks [Volume Rate/Area] in Serum or Plasma by Creatinine-based formula (MDRD) 59 mL/min [facility] ([facility]) <content>CHRONIC KIDNEY DISEASE STAGING PER NKF</content>
<content></content>
<content>STAGE I & II GFR >= 60 NORMAL TO MILDLY DECREASED</content>
<content>STAGE III GFR 30-59 MODERATELY DECREASED</content>
<content>STAGE IV GFR 15-29 SEVERELY DECREASED</content>
<content>STAGE V GFR <15 VERY LITTLE GFR LEFT</content>
<content>ESRD GFR <15 ON CORNER BLOCK CUTTER</content>
<content></content> ID Date Data Source [id number] 03/07/2021 10:47:00 AM EDT [facility] Name Value Range Interpretation Code Description Data Krissy rce(s) Supporting Document(s) Calcidiol [Mass/volume] in Serum or Plasma 61.4 ng/mL 24.0-80.0 [facility] ([facility]) This test was performed using [employer] I P Vitamin D immunoassay kit. Values obtained with different assay methods should not be used interchangeably. ID Date Data Source [id number] 03/07/2021 10:47:00 AM EDT [facility] Name Value Range Interpretation Code Description Data Krissy rce(s) Supporting Document(s) Glucose [Mass/volume] in Serum or Plasma 78 mg/dL 74-99 [facility] ([facility]) 100-125 mg/dL PRE-DIABETES/FASTING >126 mg/dL DIABETES/FASTING Sodium [Moles/volume] in Serum or Plasma 142 meq/L 136-145 [facility] ([facility]) Urea nitrogen [Mass/volume] in Serum or Plasma 26 mg/dL 7-18 [facility] ([facility]) Creatinine 1.0 mg/dL 0.6-1.3 [facility] ([facility]) Potassium [Moles/volume] in Serum or Plasma 4.5 meq/L 3.5-5.1 [facility] ([facility]) Carbon dioxide, total [Moles/volume] in Serum or Plasma 31 meq/L 21 -32 [facility] ([facility]) Chloride [Moles/volume] in Serum or Plasma 106 meq/L 98-107 [facility] ([facility]) Calcium [Mass/volume] in Serum or Plasma 9.2 mg/dL 8.5-10.1 [facility] ([facility]) Glomerular filtration rate/1.73 sq M pre dicted among blacks [Volume Rate/Area] in Serum or Plasma by Creatinine-based formula (MDRD) Laboratory test result [facility] ([facility] <content>CHRONIC KIDNEY DISEASE STAGING PER NKF</content>
<content></content>
<content>STAGE I & II GFR >= 60 NORMAL TO MILDLY DECREASED</content>
<content>STAGE III GFR 30-59 MODERATELY DECREASED</content>
<content>STAGE IV GFR 15-29 SEVERELY DECREASED</content>
<content>STAGE V GFR <15 VERY LITTLE GFR LEFT</content>
<content>ESRD GFR <15 ON CORNER BLOCK CUTTER</content>
<content></content> Glomerular filtration rate/1.73 sq M pre dicted among non-blacks [Volume Rate/Area] in Serum or Plasma by Creatinine-based formula (MDRD) 55 mL/min [facility] ([facility] ID Date Data Source [id number] 03/07/2021 10:47:00 AM EDT [facility] ([facility] Name Value Range Interpretation Code Description Data Krissy rce(s) Supporting Document(s) Leukocytes [#/volume] in Blood by Automated count 8.1 x10*3/UL 4.1-10 .9 [facility] ([facility]) Erythrocytes [#/volume] in Blood by Automated count 4.60 x10*6/UL 4.2 0-6.30 [facility] ([facility]) Hemoglobin [Mass/volume] in Blood 13.5 g/dL 12.0-18.0 [facility] ([facility]) Hematocrit [Volume Fraction] of Blood by Automated count 40.6 % 3 7.0-51.0 [facility] ([facility]) MCV 88.2 fL 80.0-97.0 [facility] MCH 29.3 pg 26.0-32.0 [facility] MCHC 33.2 g/dL 31.0-38.0 [facility] ([facility]) Erythrocyte distribution width [Ratio] by Automated count 13.5 % 11.6-13.7 [facility] ([facility]) Lymph % 19.3 % 10.0-58.5 [facility] ([place] [facility]) Platelets [#/volume] in Blood by Automated count 204 x10*3/UL 140-440 [facility] ([facility]) MPV 8.7 FL 7.8-11.0 [facility] ([facility]) Mid % 5.1 % 1.7-9.3 [facility] ([facility]) Mid # 0.5 x10*3/UL 0.1-0.6 [facility] ([facility]) Neut % 75.6 % 37.0-92.0 [facility] ([facility] [facility]) Lymph # 1.5 x10*3/UL 0.6-4.1 [facility] ([facility]) Neut # 6.1 x10*3/UL 2.0-7.8 [facility] ([facility]) ID Date Data Source [id number] 02/15/2021 12:56:00 PM EDT [facility] ([facility] Name Value Range Interpretation Code Description Data Krissy rce(s) Supporting Document(s) Covid Rapid Testing Laboratory test result [facility] ([facility]) ID Date Data Source [id number] 02/15/2021 12:00:00 AM EDT [facility] Name Value Range Interpretation Code Description Data Krissy rce(s) Supporting Document(s) Covid Rapid Testing Negative [facility] This lab was ordered by [facility] and re ported by [facility]. ID Date Data Source [id number] 02/04/2021 09:12:00 AM EDT [facility] ([facility] ) Name Value Range Interpretation Code Description Data Krissy rce(s) Supporting Document(s) Laboratory test finding (navigational concept) Laboratory test result [facility] ([facility] ) ID Date Data Source [id number] 12/04/2020 03:23:00 PM EST [facility] ([facility] Name Value Range Interpretation Code Description Data Krissy rce(s) Supporting Document(s) Dexa/Bone Density Laboratory test result [facility] ([facility]) ID Date Data Source [id number] 12/04/2020 03:21:00 PM EST [facility] ([facility]) Name Value Range Interpretation Code Description Data Krissy rce(s) Supporting Document(s) 3D Bi-Lateral Mammogram Laboratory test result [facility] ([facility]) ID Date Data Source [id number] 12/03/2020 08:15:00 AM EST [facility] ([facility]) Name Value Range Interpretation Code Description Data Krissy rce(s) Supporting Document(s) Cholesterol [Mass/volume] in Serum or Plasma 155 mg/dL 131-200 [facility] ([facility]) Cholesterol in HDL [Mass/volume] in Serum or Plasma 75 mg/dL 35-60 [facility] ([facility]) Triglyceride [Mass/volume] in Serum or Plasma 96 mg/dL 30-150 [facility] ([facility]) Cholesterol in LDL [Mass/volume] in Serum or Plasma by calcu lation 61 CALC 50-159 [facility] ([facility]) ID Date Data Source [id number] 12/03/2020 08:15:00 AM EST [facility] ([facility]) Name Value Range Interpretation Code Description Data Krissy rce(s) Supporting Document(s) Glucose [Mass/volume] in Serum or Plasma 88 mg/dL 74-99 [facility] ([facility]) 100-125 mg/dL PRE-DIABETES/FASTING >126 mg/dL DIABETES/FASTING Urea nitrogen [Mass/volume] in Serum or Plasma 24 mg/dL 7-18 [facility] ([facility]) Creatinine 1.0 mg/dL 0.6-1.3 [facility] Sodium [Moles/volume] in Serum or Plasma 142 meq/L 136-145 [facility] ([facility]) Potassium [Moles/volume] in Serum or Plasma 4.3 meq/L 3.5-5.1 [facility] ([facility]) Chloride [Moles/volume] in Serum or Plasma 105 meq/L 98-107 [facility] ([facility]) Carbon dioxide, total [Moles/volume] in Serum or Plasma 31 meq/L 21 -32 [facility] ([facility]) Calcium [Mass/volume] in Serum or Plasma 9.4 mg/dL 8.5-10.1 [facility] ([facility]) Alkaline phosphatase isoenzyme [Units/volume] in Serum or Pl asma 86 mg/dL 46-116 [facility] ([facility]) Total Bilirubin 0.4 mg/dL 0.2-1.0 [facility] ([facility]) Aspartate aminotransferase [Enzymatic activity/volume] in Serum or Plasma 25 U/L 15-37 [facility] ([facility] ) Alanine aminotransferase [Enzymatic activity/volume] in Seru m or Plasma 35 U/L 12-78 [facility] ([facility]) Albumin [Mass/volume] in Serum or Plasma 4.0 g/dL 3.4-5.0 [facility] ([facility]) Proteinase 3 Ab [Units/volume] in Serum 7.0 g/dL 6.4-8.2 [facility] ([facility]) A/G Ratio 1.33 CALC 1.00-1.90 [facility] Glomerular filtration rate/1.73 sq M pre dicted among non-blacks [Volume Rate/Area] in Serum or Plasma by Creatinine-based formula (MDRD) 55 mL/min [facility] Glomerular filtration rate/1.73 sq M pre dicted among blacks [Volume Rate/Area] in Serum or Plasma by Creatinine-based formula (MDRD) Laboratory test result [facility] ([facility] <content>CHRONIC KIDNEY DISEASE STAGING PER NKF</content>
<content></content>
<content>STAGE I & II GFR >= 60 NORMAL TO MILDLY DECREASED</content>
<content>STAGE III GFR 30-59 MODERATELY DECREASED</content>
<content>STAGE IV GFR 15-29 SEVERELY DECREASED</content>
<content>STAGE V GFR <15 VERY LITTLE GFR LEFT</content>
<content>ESRD GFR <15 ON CORNER BLOCK CUTTER</content>
<content></content> ID Date Data Source [id number] 12/03/2020 08:15:00 AM EST [facility] ([facility]) Name Value Range Interpretation Code Description Data Krissy rce(s) Supporting Document(s) Creatine kinase [Enzymatic activity/volume] in Serum or Plasma 102 U/L 26-192 [facility] ([facility]) Magnesium 2.1 mg/dL 1.8-2.4 [facility] ([place] [facility]) ID Date Data Source [id number] 12/03/2020 08:15:00 AM EST [facility] ([facility]) Name Value Range Interpretation Code Description Data Krissy rce(s) Supporting Document(s) Leukocytes [#/volume] in Blood by Automated count 6.0 x10*3/UL 4.1-10 .9 [facility] ([facility]) Erythrocytes [#/volume] in Blood by Automated count 4.54 x10*6/UL 4.2 0-6.30 [facility] ([facility]) Hemoglobin [Mass/volume] in Blood 13.3 g/dL 12.0-18.0 [facility] ([facility]) Hematocrit [Volume Fraction] of Blood by Automated count 39.8 % 3 7.0-51.0 [facility] ([facility]) MCV 87.8 fL 80.0-97.0 [facility] ([place] [facility]) MCH 29.3 pg 26.0-32.0 [facility] ([place] [facility]) MCHC 33.4 g/dL 31.0-38.0 [facility] ([facility]) Erythrocyte distribution width [Ratio] by Automated count 12.8 % 11.6-13.7 [facility] ([facility]) Platelets [#/volume] in Blood by Automated count 209 x10*3/UL 140-440 [facility] ([facility]) Lymph % 25.4 % 10.0-58.5 [facility] ([place] [facility]) MPV 8.5 FL 7.8-11.0 [facility] ([place] [facility]) Mid % 6.0 % 1.7-9.3 [facility] Neut % 68.6 % 37.0-92.0 [facility] ([place] [facility]) Lymph # 1.5 x10*3/UL 0.6-4.1 [facility] ([facility]) Mid # 0.4 x10*3/UL 0.1-0.6 [facility] ([facility]) Neut # 4.1 x10*3/UL 2.0-7.8 [facility] ([facility]) ID Date Data Source [id number] 12/03/2020 08:15:00 AM EST [facility] ([facility]) Name Value Range Interpretation Code Description Data Krissy rce(s) Supporting Document(s) Microalbumin Urine 12.7 mg/L 1.3-20.0 [facility] ([facility]) Urine Creatinine 180.8 mg/dL 30.0-125.0 [facility] ([facility]) Microalb/Creat Ratio 7.0 ug/mg 0.0-30.0 [facility] ([facility]) ID Date Data Source [id number] 12/03/2020 08:15:00 AM EST [facility] ([facility] Name Value Range Interpretation Code Description Data Krissy rce(s) Supporting Document(s) Urine Color Laboratory test result [facility] ([facility]) Urine Appearance Laboratory test result Abnormal (applies to non-numeric results) [facility] ([facility] Urine PH 6.0 units 5.0-9.0 [facility] ([facility]) Specific gravity of Urine 1.015 1.005-1.030 [facility] ([facility] Urine Leukocytes Laboratory test result Abnormal (applies to non-numeric results) [facility] ([facility]) Urine Blood Laboratory test result [facility] ([facility]) Urine Protein Laboratory test result 0-0 [facility] ([facility]) Glucose [Presence] in Urine [facility]) Urine Nitrite Laboratory test result [facility] ([facility]) Urine Ketone Laboratory test result [facility] ([facility] Urine Urobilinogen 0.2 mg/dL 0.2-1.0 [facility] Bilirubin.total [Mass/volume] in Serum or Plasma Laboratory test resu lt [facility] ([facility]) ID Date Data Source [id number] 12/03/2020 08:15:00 AM EST [facility]) Name Value Range Interpretation Code Description Data Krissy rce(s) Supporting Document(s) Thyrotropin [Units/volume] in Serum or Plasma by Detec tion limit <= 0.05 mIU/L 1.60 uIU/mL 0.36-3.74 [facility] ([facility] ) ID Date Data Source [id number] 09/21/2020 07:41:00 AM EDT [facility] ([facility]) Name Value Range Interpretation Code Description Data Krissy rce(s) Supporting Document(s) Glucose [Mass/volume] in Serum or Plasma 130 mg/dL 74-99 [facility] ([facility]) 100-125 mg/dL PRE-DIABETES/FASTING >126 mg/dL DIABETES/FASTING Urea nitrogen [Mass/volume] in Serum or Plasma 27 mg/dL 7-18 [facility] ([facility]) Creatinine 1.4 mg/dL 0.6-1.3 [facility] ([facility]) Sodium [Moles/volume] in Serum or Plasma 143 meq/L 136-145 [facility] ([facility]) Potassium [Moles/volume] in Serum or Plasma 3.8 meq/L 3.5-5.1 [facility] ([facility]) Chloride [Moles/volume] in Serum or Plasma 105 meq/L 98-107 [facility] ([facility]) Carbon dioxide, total [Moles/volume] in Serum or Plasma 33 meq/L 21 -32 [facility] ([facility]) Calcium [Mass/volume] in Serum or Plasma 8.9 mg/dL 8.5-10.1 [facility] ([facility]) Glomerular filtration rate/1.73 sq M pre dicted among non-blacks [Volume Rate/Area] in Serum or Plasma by Creatinine-based formula (MDRD) 37 mL/min [facility] ([facility]) Glomerular filtration rate/1.73 sq M pre dicted among blacks [Volume Rate/Area] in Serum or Plasma by Creatinine-based formula (MDRD) 45 mL/min [facility] ([facility]) <content>CHRONIC KIDNEY DISEASE STAGING PER NKF</content>
<content></content>
<content>STAGE I & II GFR >= 60 NORMAL TO MILDLY DECREASED</content>
<content>STAGE III GFR 30-59 MODERATELY DECREASED</content>
<content>STAGE IV GFR 15-29 SEVERELY DECREASED</content>
<content>STAGE V GFR <15 VERY LITTLE GFR LEFT</content>
<content>ESRD GFR <15 ON CORNER BLOCK CUTTER</content>
<content></content> Procedure Social History No Information Vital Signs ID Date Data Source UNK Name Value Range Interpretation Code Description Data Source(s) Body weight 184.12 [lb_av] 184.12 [lb_av] [facility] ([facility]) verbal Systolic blood pressure 142 mm[Hg] 142 mm[Hg] [facility] ([facility]) RT Arm Body mass index (BMI) [Ratio] 33.1 kg/m2 33.1 k g/m2 [facility] ([facility]) Diastolic blood pressure 80 mm[Hg] 80 mm[Hg] [facility] ([facility]) RT Arm Systolic blood pressure 126 mm[Hg] 126 mm[Hg] [facility] ([facility]) Diastolic blood pressure 84 mm[Hg] 84 mm[Hg] [facility] ([facility]) Heart rate 80 /min 80 /min [facility] ([facility]) Body height 62.50 [in_i] 62.50 [in_i] [facility] ([facility]) 5'2.50" Body weight 183.12 [lb_av] 183.12 [lb_av] [facility] ([facility] ) Body height 62 [in_i] 62 [in_i] [facility] ([facility] ) 5'2" Body mass index (BMI) [Ratio] 33.5 kg/m2 33.5 k g/m2 [facility] ([facility] ) Body temperature 96.2 [degF] 96.2 [degF] [facility] ([facility]) Systolic blood pressure 150 mm[Hg] 150 mm[Hg] [facility] Diastolic blood pressure 86 mm[Hg] 86 mm[Hg] [facility] ([facility]) Systolic blood pressure 130 mm[Hg] 130 mm[Hg] [facility] Diastolic blood pressure 82 mm[Hg] 82 mm[Hg] [facility]) Heart rate 84 /min 84 /min [facility] ([facility]) Body height 62.50 [in_i] 62.50 [in_i] [facility] ([facility]) 5'2.50" Body weight 186.38 [lb_av] 186.38 [lb_av] [facility] ([facility]) Body mass index (BMI) [Ratio] 33.5 kg/m2 33.5 k g/m2 [facility] ([facility]) Body weight 180.00 [lb_av] 180.00 [lb_av] [facility] ([facility] ) Body temperature 96.9 [degF] 96.9 [degF] [facility] ([facility] ) Body height 62 [in_i] 62 [in_i] [facility] ([facility] ) 5'2" Body mass index (BMI) [Ratio] 32.9 kg/m2 32.9 k g/m2 [facility] ([facility] ) Body temperature 97.6 [degF] 97.6 [degF] [facility] ([facility] ) Body temperature 96.2 [degF] 96.2 [degF] [facility] ([facility] ) Systolic blood pressure 124 mm[Hg] 124 mm[Hg] [facility] RT Arm Diastolic blood pressure 60 mm[Hg] 60 mm[Hg] [facility] ([facility]) RT Arm Heart rate 81 /min 81 /min [facility] ([facility]) Body height 62.50 [in_i] 62.50 [in_i] [facility] ([facility]) 5'2.50" Body weight 182.12 [lb_av] 182.12 [lb_av] [facility] ([facility]) verbal Oxygen saturation in Arterial blood by Pulse oximetry 96 % 96 % [facility] ([facility]) RM Air Body mass index (BMI) [Ratio] 32.8 kg/m2 32.8 k g/m2 [facility] ([facility]) Body height 61.75 [in_i] 61.75 [in_i] [facility] ([facility] 5'1.75" Body mass index (BMI) [Ratio] 34.3 kg/m2 34.3 k g/m2 [facility] ([facility] ) Body weight 186.12 [lb_av] 186.12 [lb_av] [facility] ([facility] ) Body temperature 96.1 [degF] 96.1 [degF] [facility] ([facility] ) Heart rate 72 /min 72 /min [facility] ([facility]) Body mass index (BMI) [Ratio] 33.9 kg/m2 33.9 k g/m2 [facility] ([facility]) Body weight 188.25 [lb_av] 188.25 [lb_av] [facility] ([facility]) Systolic blood pressure 128 mm[Hg] 128 mm[Hg] [facility] ([facility]) Diastolic blood pressure 64 mm[Hg] 64 mm[Hg] [facility] ([facility]) Body height 62.50 [in_i] 62.50 [in_i] [facility] 5'2.50" Oxygen saturation in Arterial blood by Pulse oximetry 98 % 98 % [facility] ([facility]) RM Air Systolic blood pressure 116 mm[Hg] 116 mm[Hg] [facility] ([facility]) RT Arm Diastolic blood pressure 70 mm[Hg] 70 mm[Hg] [facility] ([facility]) RT Arm Body weight 178.50 [lb_av] 178.50 [lb_av] [facility] ([facility]) Verbal Heart rate 80 /min 80 /min [facility] ([facility]) Body height 62.50 [in_i] 62.50 [in_i] [facility] 5'2.50" Body mass index (BMI) [Ratio] 32.1 kg/m2 32.1 k g/m2 [facility]
--- NOTE | 2021-10-27 11:16 | REP ---
INDICATION: trauma. COMPARISON: None. TECHNIQUE: Four views of the right wrist were obtained. FINDINGS: There is an acute comminuted impacted fracture of the distal radius extending into the radiocarpal joint. There is an associated avulsion fracture of the ulnar styloid. There is mild dorsal angulation deformity of the distal radius. IMPRESSION: Comminuted impacted fracture of the distal radius with an associated ulnar styloid fracture, as described. <Electronically signed by Sarkis Wood > 10/27/21 [id number]
--- OUTSIDE RECORDS SUMMARY | 2021-10-27 11:27 | CCD ---
Author Author [facility] Organization [facility] Address Unknown Phone Unavailable Care Team Providers Care Energy Attorney Name Role Phone Fish, B Benjamin HERNANDEZ [...] Fish, B Benjamin HERNANDEZ Unavailable Unavailable Fish, [facility], PA-C Unavailable Unavailabl e Fish, [facility], PA-C Unavailable Unavailabl e Fish, [facility], PA-C Unavailable Unavailabl e Fish, [facility], PA-C Unavailable Unavailabl e Fish, [facility], PA-C Unavailable Unavailabl e Fish, [facility], PA-C Unavailable Unavailabl e Fish, [facility], PA-C Unavailable Unavailabl e Fish, [facility], PA-C Unavailable Unavailabl e Fish, [facility], PA-C Unavailable Unavailabl e Fish, [facility], PA-C Unavailable Unavailabl e Fish, [facility], PA-C Unavailable Unavailabl e Fish, [facility], PA-C Unavailable Unavailabl e Fish, [facility], PA-C Unavailable Unavailabl e Fish, [facility], PA-C Unavailable Unavailabl e Fish, [facility], PA-C Unavailable Unavailabl e Fish, [facility], PA-C Unavailable Unavailabl e Fish, [facility], PA-C Unavailable Unavailabl e Fish, [facility], PA-C Unavailable Unavailabl e Fish, [facility], PA-C Unavailable Unavailabl e Fish, [facility], PA-C Unavailable Unavailabl e Fish, [facility], PA-C Unavailable Unavailabl e Fish, [facility], PA-C Unavailable Unavailabl e Fish, [facility], PA-C Unavailable Unavailabl e Fish, [facility], PA-C Unavailable Unavailabl e Fish, [facility], PA-C Unavailable Unavailabl e Fish, [facility], PA-C Unavailable Unavailabl e Fish, [facility], PA-C Unavailable Unavailabl e Fish, [facility], PA-C Unavailable Unavailabl e Fish, [facility], PA-C Unavailable Unavailabl e Fish, [facility], PA-C Unavailable Unavailabl e Fish, [facility], PA-C Unavailable Unavailabl e Fish, [facility], PA-C Unavailable Unavailabl e Fish, [facility], PA-C Unavailable Unavailabl e Fish, [facility], PA-C Unavailable Unavailabl e Fish, [facility], PA-C Unavailable Unavailabl e Fish, [facility], PA-C Unavailable UnavailMartir Maddox MD Unavailable Unavailable [...] is protected by Article 27-F of the [place] Public Health law. If you continue you may have access to information: Regarding HIV / AIDS; Provided by facilities licensed or operated by the [facility] Office of Mental Health; or Provided by the [facility] Office for People With Developmental Disabilities. If such information is present, then the following [facility] mandated warning applies: This information has been [...] law may result in a fine or mcc sentence or both. A general authorization for the release of medical or other information is NOT sufficient authorization for further disc losure. Family History Family Member Name Family Member Gender Family Member Status Date o f Status Description Data Source(s) Unknown Male Problem [facility] ([facility]) Unknown Female Problem [facility] ([facility]) Encounters Encounter Providers Location Date Indications Data Source(s ) Office Visit Attender: Evelyne SEARS PA-C Physical Therapy 10/11/2021 08:30:00 AM EST [facility] ([facility]) Office Visit Attender: Evelyne SEARS PA-C Physical Therapy 10/04/2021 08:15:00 AM EST [facility] ([facility]) Office Visit Attender: Evelyne SEARS PA-C Physical Therapy 09/27/2021 03:00:00 PM EDT [facility] ([facility]) Outpatient Attender: Evelyne SEARS PA-C Physical Therapy 09/05/2021 10:00:00 AM EDT [facility] ([facility]) Outpatient Attender: Juana Brooks 09:45:00 AM EDT [facility] ([facility] ) OFFICE OUTPATIENT VISIT 15 MINUTES Attender: Benjamin Dutta MD Phys ical Therapy 07/17/2021 09:15:00 AM EDT [facility] ([facility]) Outpatient Attender: Juana Brooks 11:15:00 AM EDT [facility] ([facility] ) Office Visit Attender: Benjamin Dutta MD Physical Therapy 2020 01:30:00 PM EDT [facility] ([facility]) Outpatient Attender: Evelyne SEARS PA-C Physical Therapy 04/23/2021 11:15:00 AM EDT [facility] ([facility]) Office Visit Attender: Evelyne SEARS PA-C Physical Therapy 04/11/2021 02:00:00 PM EDT [facility] ([facility]) Outpatient Attender: Juana Brooks 10:00:00 AM EDT [facility] ([facility] ) Office Visit Attender: Juana Brooks 01:30:00 PM EST [facility] ([facility] ) Office Visit Attender: Zoran ROGEL Physical Therapy 12:00:00 PM EST [facility] ([facility]) Outpatient Attender: Juana Brooks 07:45:00 AM EST [facility] ([facility] ) Immunizations Vaccine Date Status Description Data Source(s) COVID-19 VACCINE Moderna 09/13/2021 12:00:00 AM EDT completed [facility] Vaccine Series Complete: YESThis Data wa s Submitted to [facility] Via [employer]. This CVX code allows reporting of a vacc ination when formulation is unknown (for example, when recording a Influenza vaccination when noted on a vaccination card) 08/14/2021 09:48:00 AM EDT completed LEVON Ordonez ([facility]) COVID-19 VACCINE Moderna 01/11/2021 12:00:00 AM EST completed [facility] Vaccine Series Complete: YESThis Data wa s Submitted to [facility] Via [employer]. COVID-19 VACCINE Moderna 12/16/2020 12:00:00 AM EST completed [facility] Vaccine Series Complete: NOThis Data was Submitted to [facility] Via [employer]. Medications Medication Brand Name Start Date Product [...] 04/02/2021 12:00:00 AM EDT ORAL active [facility] ([facility]) Acetaminophen 300 MG / [...] Unspecified 01/14/2021 12:00:00 AM EST completed [facility] ([facility]) Medication administered onsite Covid-19 vaccine, Unspecified 12/17/2020 12:00:00 AM EST completed [facility] ([facility]) Medication administered onsite 40 mg [...] Euflexxa 10/26/2020 12:00:00 AM EST active [facility] ([facility]) Lisinopril 40 MG Oral Tablet Lisinopril 09/24/2020 12:00:00 AM EST ORAL active [facility] ([facility]) 5 mg 08/28/2020 12:00:00 AM [...] 07/16/2020 12:00:00 AM EDT ORAL completed [facility] ([facility]) Hydrochlorothiazide 12.5 MG Oral Tablet Hydrochlorothiazide 06/12/2020 12:00:00 AM EDT ORAL completed [facility] ([facility]) Hydrochlorothiazide 12.5 MG Oral Tablet HYDROCHLOROTHIAZIDE [...] type / Coverage type Policy ID Covered alliance party ID Covered alliance party's relationship to bates Policy Bates Plan Information [facility] Healthcare Commercial Indemnity [id number] Self Inde mnity [facility] Healthcare Commercial [id number] Self [id number] Medicare Natl Govt Servic Medicare Primary [id number] Self [id number] Medicare Natl Govt Servic Medicare Primary [id number] 2.16.840.1.158890.3.227.99.4595.4340.0 Self [id number] Medicare Natl Govt Servic Medicare Primary [id number] 2.16.840.1.889800.3.227.99.4595.4340.0 Self [id number] Medicare Natl Govt Servic Medicare Primary [id number] 2.16840.1.370023.3.227.99.4595.4340.0 Self [id number] Medicare Natl Govt Servic Medicare Primary [id number] 2.16840.1.759721.3.227.99.4595.4340.0 Self 0 [id number] Medicare Natl Govt Servic Medicare Primary [id number] 2.840.1.491220.3.227.99.4595.4340.0 Self 0 [id number] Medicare Natl Govt Servic Medicare Primary [id number] 2.16840.1.908653.3.227.99.4595.4340.0 Self 0 [id number] Medicare Natl Govt Servic Medicare Primary [id number] 2.16840.1.518339.3.227.99.4595.4340.0 Self 0 [id number] Medicare Natl Govt Servic Medicare Primary [id number] 2.840.1.487878.3.227.99.4595.4340.0 Self 0 [id number] Medicare Natl Govt Servic Medicare Primary [id number] 2.16840.1.778364.3.227.99.4595.4340.0 Self 0 [id number] Medicare Natl Govt Servic Medicare Primary [id number] Self [id number] Medicare Natl Govt Servic Medicare Primary [id number] 2.16840.1.366595.3.227.99.4595.4340.0 Self 6 [id number] Medicare Natl Govt Servic Medicare Primary [id number] 2.16.840.1.622836.3.227.99.4595.4340.0 Self 0 [id number] Medicare Natl Govt Servic Medicare Primary [id number] Self Medicare Natl Govt Serv Medicare Primary [id number] 2.16.840.1.680942.3.227.99.4595.4340.0 Self 6 [id number] Medicare Natl Govt Serv Medicare Primary [id number] 2.16.840.1.849568.3.227.99.4595.4340.0 Self 6 [id number] Medicare Natl Govt Serv Medicare Primary [id number] 2.16840.1.773261.3.227.99.4595.4340.0 Self 0 [id number] [place] Primary [id number] 2.16840.1.075454.3.227.99.991.079697.0 Self [id number] Medicare [place] Medicare Primary [id number] 2..840.1.269242.3.227.99.991.072944.0 Self [id number] MVP (pr) Commercial [id number].[id number] Self [id number] [place] (pr) Medigap Part B [id number] 2.16840.1.622850.3.227.99.991.139 136.0 [id number] Medicare [place] Medicare Primary [id number] 2.16.840.1.092933.3.227.99.991.054835.0 Self [id number] [place] (pr) Medigap Part B [id number] 2.16840.1.996910.3.227.99.991.139 136.0 [id number] [place] (pr) Medigap Part B [id number] 2.16.840.1.150276.3.227.99.991.139 136.0 [id number] Medicare [place] Medicare Primary [id number] 2.0.1.680298.3.227.99.991.314829.0 Self [id number] [place] (pr) Medigap Part B [id number] [place] (pr) Medigap Part B [id number] 2.0.1.462435.3.227.99.991.139 136.0 [id number] Medicare [place] Medicare Primary [id number] 2.0.1.246960.3.227.99.991.746516.0 Self [id number] Medicare [place] Medicare Primary [id number] MRN.[id number] Self [id number] [place] (pr) Medigap Part B [id number] 2.0.1.832363.3.227.99.991.139 136.0 [id number] Medicare [place] Medicare Primary [id number] 2.0.1.353074.3.227.99.991.772491.0 Self [id number] Medicare [place] Medicare Primary [id number] 2.0.1.584620.3.227.99.991.273084.0 Self [id number] [place] (pr) Medigap Part B [id number] 2.0.1.946085.3.227.99.991.139 136.0 [id number] [place] (pr) Medigap Part B [id number] 2.0.1.793257.3.227.99.991.139 136.0 [id number] Umr (New [place]) Medigap Part B [id number] 2.16.840.1.081991.3.227 .99.4595.4340.0 Family Dependent [id number] MEDICARE [id number] SP [id number] A Aso Medigap Part B [id number] 2.16.840.1.923114.3.227.99.4595.434 0.0 Self [id number] Umr [place] Ppo Medigap Part B [id number] 2.16.840.1.983237.3.227.9 9.4595.4340.0 Family Dependent [id number] Aso Medigap Part B [id number] 2.16.840.1.014076.3.227.99.4595.434 0.0 Self [id number] Umr [place] Ppo Medigap Part B [id number] 2.16.840.1.866159.3.227.9 9.4595.4340.0 Family Dependent [id number] Aso Medigap Part B [id number] 2.16.840.1.434461.3.227.99.4595.434 0.0 Self [id number] [place] Ppo Medigap Part B [id number] 2.16.840.1.980557.3.227.99 .4595.4340.0 Family Dependent [id number] Aso Medigap Part B [id number] 2.16.840.1.142430.3.227.99.4595.434 0.0 Self [id number] [place] Ppo Medigap Part B [id number] 2.16.840.1.611849.3.227.99 .4595.4340.0 Family Dependent [id number] Aso Medigap Part B [id number] 2.16.840.1.606129.3.227.99.4595.434 0.0 Self [id number] [place] Ppo Medigap Part B [id number] 2.16.840.1.630950.3.227.99 .4595.4340.0 Family Dependent [id number] Aso Medigap Part B [id number] 2.16.840.1.263215.3.227.99.4595.434 0.0 Self [id number] [place] Ppo Medigap Part B [id number] 2.16.840.1.724675.3.227.99 .4595.4340.0 Family Dependent [id number] Aso Medigap Part B 2958 Self [place] Ppo Medigap Part B [id number] 2959 Family Dependent 910 [facility] [id number] SP 82 [id number] MEDICARE [id number] SP [id number] A [facility] PHY [id number] SP [id number] [facility] [id number] HU2 [id number] [facility] PPO S [id number] S [id number] 900 [id number] Umr [place] Ppo Medigap Part B [id number] 2.840.1.090987.3.227.9 9.4595.4340.0 Family Dependent [id number] R [facility] [id number] [id number] [facility] CARE [id number] SP 82 [id number] UMR O [id number] S [id number] MEDICARE C [id number] S [id number] [facility] O [id number] S 82 [id number] SELF PAY ONLY [id number] SP [id number] Aso Medigap Part B [id number] 2.0.1.009038.3.227.99.4595.434 0.0 Self [id number] [place]/Umr (Old) Medigap Part B 495851429 2.840.1.159733.3.227 .99.4595.4340.0 Family Dependent [id number] Aso Medigap Part B [id number] Self [id number] [place]/Umr (Old) Medigap Part B [id number] Family Dependent [id number] Umr (pr) Medigap Part B [id number] Self [id number] UMR -O/P [id number] 01 [id number] MEDICARE PART A -O/P [id number] 18 [id number] [facility]-O/P [id number] 18 [id number] [facility] [id number] SP 82 [id number] MEDICARE [id number] SP [id number] A Aso Medigap Part B [id number] 2.16.840.1.856046.3.227.99.4595.434 0.0 Self [id number] [place]/Umr (Old) Medigap Part B [id number] 2.16.840.1.012587.3.227 .99.4595.4340.0 Family Dependent [id number] UMR O [id number] P [id number] MEDICARE C [id number] S [id number] A Aso Medigap Part B [id number] 2.16.840.1.733885.3.227.99.4595.434 0.0 Self [id number] [place]/Umr (Old) Medigap Part B 688976041 2.16.840.1.767803.3.227 .99.4595.4340.0 Family Dependent [id number] [employer] PPO O [id number] S [id number] Aso Medigap Part B [id number] 2.16.840.1.268654.3.227.99.4595.434 0.0 Self [id number] [place]/Umr (Old) Medigap Part B [id number] 2.16.840.1.085785.3.227 .99.4595.4340.0 Family Dependent [id number] Aso Medigap Part B [id number] 2.16.840.1.571213.3.227.99.4595.434 0.0 Self [id number] [place]/Umr (Old) Medigap Part B [id number] 2.16.840.1.537463.3.227 .99.4595.4340.0 Family Dependent [id number] Aso Medigap Part B [id number] 2.16.840.1.113641.3.227.99.4595.434 0.0 Self [id number] [place]/Umr (Old) Medigap Part B [id number] 2.16.840.1.385798.3.227 .99.4595.4340.0 Family Dependent [id number] Aso Medigap Part B [id number] 2.16.840.1.564151.3.227.99.4595.434 0.0 Self [id number] [place]/Umr (Old) Medigap Part B [id number] 2.16.840.1.804298.3.227 .99.4595.4340.0 Family Dependent [id number] Aso Medigap Part B [id number] 2.16.840.1.371265.3.227.99.4595.434 0.0 Self [id number] MEDICARE [id number] SP [id number] [id number] Aso Medigap Part B [id number] 2.16.840.1.917332.3.227.99.4595.434 0.0 Self [id number] Umr [place] Ppo Medigap Part B [id number] 2.16.840.1.455759.3.227.9 9.4595.4340.0 Family Dependent [id number] POM[facility] [id number] [facility] [id number] Problems, Conditions, and Diagnoses No Information Surgeries/Procedures Procedure Description Date Indications Data Source(s) ARTHROCENTESIS ASPIR&/INJECTION MAJOR JT/BURSA 021 12:00:00 AM EST [facility] ([facility]) ARTHROCENTESIS ASPIR&/INJECTION MAJOR JT/BURSA 021 12:00:00 AM EST [facility] ([facility] ARTHROCENTESIS ASPIR&/INJECTION MAJOR JT/BURSA 12:00:00 AM EDT [facility] ([facility]) ARTHROCENTESIS ASPIR&/INJECTION MAJOR JT/BURSA 12:00:00 AM EDT [facility] ([facility]) RADIOLOGIC EXAM KNEE COMPLETE 4/MORE VIEWS 09/05/2021 12:00:00 AM EDT [facility] ([facility]) OFFICE OUTPATIENT VISIT 25 MINUTES 09/05/2021 12:00:00 AM EDT [facility] ([facility]) OFFICE OUTPATIENT VISIT 25 MINUTES 08/28/2021 12:00:00 AM EDT [facility] ([facility]) OFFICE OUTPATIENT VISIT 15 MINUTES 07/17/2021 12:00:00 AM EDT [facility] ([facility]) THERAPEUTIC PX 1/> AREAS EACH 15 MIN EXERCISES 12:00:00 AM EDT [facility] ([facility]) THERAPEUTIC PX 1/> AREAS EACH 15 MIN EXERCISES 12:00:00 AM EDT [facility] ([facility]) APPLICATION MODALITY 1/> AREAS HOT/COLD PACKS 06/03/20 12:00:00 AM EDT [facility] ([facility] ) THERAPEUTIC PX 1/> AREAS EACH 15 MIN EXERCISES 12:00:00 AM EDT [facility] ([facility] ) THERAPEUTIC PX 1/> AREAS EACH 15 MIN EXERCISES 12:00:00 AM EDT [facility] ([facility] ) OFFICE OUTPATIENT VISIT 25 MINUTES 05/28/2021 12:00:00 AM EDT [facility] ([facility]) OFFICE OUTPATIENT VISIT 15 MINUTES 05/28/2021 12:00:00 AM EDT [facility] ([facility] ) OFFICE OUTPATIENT VISIT 15 MINUTES 05/23/2021 12:00:00 AM EDT [facility] ([facility] ) OFFICE OUTPATIENT VISIT 25 MINUTES 05/23/2021 12:00:00 AM EDT [facility] ([facility]) THERAPEUTIC PX 1/> AREAS EACH 15 MIN EXERCISES 12:00:00 AM EDT [facility] ([facility]) THERAPEUTIC PX 1/> AREAS EACH 15 MIN EXERCISES 12:00:00 AM EDT [facility] ([facility] ) THERAPEUTIC PX 1/> AREAS EACH 15 MIN EXERCISES 12:00:00 AM EDT [facility] ([facility] ) APPLICATION MODALITY 1/> AREAS HOT/COLD PACKS 05/13/20 12:00:00 AM EDT [facility] ([facility] ) APPLICATION MODALITY 1/> AREAS HOT/COLD PACKS 05/10/20 12:00:00 AM EDT [facility] ([facility] ) THERAPEUTIC PX 1/> AREAS EACH 15 MIN EXERCISES 12:00:00 AM EDT [facility] ([facility] ) THERAPEUTIC PX 1/> AREAS EACH 15 MIN EXERCISES 12:00:00 AM EDT [facility] ([facility] ) THERAPEUTIC PX 1/> AREAS EACH 15 MIN EXERCISES 12:00:00 AM EDT [facility] ([facility] ) THERAPEUTIC PX 1/> AREAS EACH 15 MIN EXERCISES 12:00:00 AM EDT [facility] ([facility] ) APPLICATION MODALITY 1/> AREAS HOT/COLD PACKS 04/26/20 12:00:00 AM EDT [facility] ([facility] ) THERAPEUTIC PX 1/> AREAS EACH 15 MIN EXERCISES 12:00:00 AM EDT [facility] ([facility] ) THERAPEUTIC PX 1/> AREAS EACH 15 MIN EXERCISES 12:00:00 AM EDT [facility] ([facility] ) ARTHROCENTESIS ASPIR&/INJECTION MAJOR JT/BURSA 12:00:00 AM EDT [facility] ([facility] ) RADEX SPINE CRV COMPL W/OBLQ&FLEX&/XTN STDS 04/23/2021 12:00:00 AM EDT [facility] ([facility] ) RADEX SHOULDER COMPLETE MINIMUM 2 VIEWS 04/23/2021 12: 00:00 AM EDT [facility] ([facility] ) OFFICE OUTPATIENT VISIT 25 MINUTES 04/23/2021 12:00:00 AM EDT [facility] ([facility] ) THERAPEUTIC PX 1/> AREAS EACH 15 MIN EXERCISES 021 12:00:00 AM EDT [facility] ([facility] ) THERAPEUTIC PX 1/> AREAS EACH 15 MIN EXERCISES 12:00:00 AM EDT [facility] ([facility] ) THERAPEUTIC PX 1/> AREAS EACH 15 MIN EXERCISES 12:00:00 AM EDT [facility] ([facility] ) THERAPEUTIC PX 1/> AREAS EACH 15 MIN EXERCISES 12:00:00 AM EDT [facility] ([facility] ) THERAPEUTIC PX 1/> AREAS EACH 15 MIN EXERCISES 12:00:00 AM EDT [facility] ([facility] ) Re-Eval Of PT Established Plan Of Care 20Mins Face To Face P T/Fam 04/04/2021 12:00:00 AM EDT [facility] ([facility] ) Arthroscopy Knee W/Meniscectomy Inc Chondroplasty (Med & Lat eral) 04/02/2021 12:00:00 AM EDT [facility] ([facility] ) THERAPEUTIC PX 1/> AREAS EACH 15 MIN EXERCISES 12:00:00 AM EDT [facility] ([facility] ) MANUAL THERAPY TQS 1/> REGIONS EACH 15 MINUTES 12:00:00 AM EDT [facility] ([facility] ) THERAPEUTIC PX 1/> AREAS EACH 15 MIN EXERCISES 12:00:00 AM EDT [facility] ([facility] ) MANUAL THERAPY TQS 1/> REGIONS EACH 15 MINUTES 12:00:00 AM EDT [facility] ([facility] ) THERAPEUTIC PX 1/> AREAS EACH 15 MIN EXERCISES 021 12:00:00 AM EDT [facility] ([facility] ) MANUAL THERAPY TQS 1/> REGIONS EACH 15 MINUTES 021 12:00:00 AM EDT [facility] ([facility] ) THERAPEUTIC PX 1/> AREAS EACH 15 MIN EXERCISES 12:00:00 AM EDT [facility] ([facility] ) MANUAL THERAPY TQS 1/> REGIONS EACH 15 MINUTES 12:00:00 AM EDT [facility] ([facility] ) THERAPEUTIC PX 1/> AREAS EACH 15 MIN EXERCISES 12:00:00 AM EDT [facility] ([facility] ) MANUAL THERAPY TQS 1/> REGIONS EACH 15 MINUTES 12:00:00 AM EDT [facility] ([facility] ) THERAPEUTIC PX 1/> AREAS EACH 15 MIN EXERCISES 12:00:00 AM EDT [facility] ([facility] ) MANUAL THERAPY TQS 1/> REGIONS EACH 15 MINUTES 12:00:00 AM EDT [facility] ([facility] ) ECG ROUTINE ECG W/LEAST 12 LDS W/I&R 03/07/2021 12:00: 00 AM EDT [facility] ([facility]) OFFICE OUTPATIENT VISIT 25 MINUTES 03/07/2021 12:00:00 AM EDT [facility] ([facility]) THERAPEUTIC PX 1/> AREAS EACH 15 MIN EXERCISES 12:00:00 AM EDT [facility] ([facility] ) THERAPEUTIC PX 1/> AREAS EACH 15 MIN EXERCISES 12:00:00 AM EDT [facility] ([facility] ) MANUAL THERAPY TQS 1/> REGIONS EACH 15 MINUTES 12:00:00 AM EDT [facility] ([facility] ) APPLICATION MODALITY 1/> AREAS HOT/COLD PACKS 03/01/20 21 12:00:00 AM EDT [facility] ([facility] ) THERAPEUTIC PX 1/> AREAS EACH 15 MIN EXERCISES 12:00:00 AM EDT [facility] ([facility] ) MANUAL THERAPY TQS 1/> REGIONS EACH 15 MINUTES 12:00:00 AM EDT [facility] ([facility] ) THERAPEUTIC PX 1/> AREAS EACH 15 MIN EXERCISES 12:00:00 AM EDT [facility] ([facility] ) MANUAL THERAPY TQS 1/> REGIONS EACH 15 MINUTES 12:00:00 AM EDT [facility] ([facility] ) THERAPEUTIC PX 1/> AREAS EACH 15 MIN EXERCISES 12:00:00 AM EDT [facility] ([facility] ) MANUAL THERAPY TQS 1/> REGIONS EACH 15 MINUTES 12:00:00 AM EDT [facility] ([facility] ) THERAPEUTIC PX 1/> AREAS EACH 15 MIN EXERCISES 12:00:00 AM EDT [facility] ([facility] ) THERAPEUTIC PX 1/> AREAS EACH 15 MIN EXERCISES 12:00:00 AM EDT [facility] ([facility] ) MANUAL THERAPY TQS 1/> REGIONS EACH 15 MINUTES 12:00:00 AM EDT [facility] ([facility] ) THERAPEUTIC PX 1/> AREAS EACH 15 MIN EXERCISES 12:00:00 AM EDT [facility] ([facility] ) OFFICE OUTPATIENT VISIT 25 MINUTES 02/08/2021 12:00:00 AM EDT [facility] ([facility] ) THERAPEUTIC PX 1/> AREAS EACH 15 MIN EXERCISES 12:00:00 AM EDT [facility] ([facility] ) MANUAL THERAPY TQS 1/> REGIONS EACH 15 MINUTES 12:00:00 AM EDT [facility] ([facility] ) MRI Lower Extremity Any Joint 02/04/2021 12:00:00 AM E DT [facility] ([facility] ) MRI Lower Extremity Any Joint 02/04/2021 12:00:00 AM E DT [facility] ([facility] ) THERAPEUTIC PX 1/> AREAS EACH 15 MIN EXERCISES 12:00:00 AM EDT [facility] ([facility] ) MANUAL THERAPY TQS 1/> REGIONS EACH 15 MINUTES 12:00:00 AM EDT [facility] ([facility] ) THERAPEUTIC PX 1/> AREAS EACH 15 MIN EXERCISES 12:00:00 AM EST [facility] ([facility] ) OFFICE OUTPATIENT VISIT 25 MINUTES 01/31/2021 12:00:00 AM EST [facility] ([facility] ) THERAPEUTIC PX 1/> AREAS EACH 15 MIN EXERCISES 12:00:00 AM EST [facility] ([facility]) THERAPEUTIC PX 1/> AREAS EACH 15 MIN EXERCISES 12:00:00 AM EST [facility] ([facility] ) OFFICE OUTPATIENT VISIT 25 MINUTES 01/28/2021 12:00:00 AM EST [facility] ([facility] ) THERAPEUTIC PX 1/> AREAS EACH 15 MIN EXERCISES 12:00:00 AM EST [facility] ([facility] ) MANUAL THERAPY TQS 1/> REGIONS EACH 15 MINUTES 12:00:00 AM EST [facility] ([facility] ) Mammogram 01/24/2021 12:00:00 AM EST M EDKETURAH ([facility]) MRI Lower Extremity Any Joint 01/23/2021 12:00:[address] [facility] ([facility] ) MRI Lower Extremity Any Joint 01/23/2021 12:00:[address] [facility] ([facility] ) Ultrasound, Each 15 Min, Constant Attendance 12:00:00 AM EST [facility] ([facility] ) THERAPEUTIC PX 1/> AREAS EACH 15 MIN EXERCISES 12:00:00 AM EST [facility] ([facility] ) Ultrasound, Each 15 Min, Constant Attendance 12:00:00 AM EST [facility] ([facility] ) THERAPEUTIC PX 1/> AREAS EACH 15 MIN EXERCISES 12:00:00 AM EST [facility] ([facility] ) THERAPEUTIC PX 1/> AREAS EACH 15 MIN EXERCISES 12:00:00 AM EST [facility] ([facility] ) Physical Therapy Eval - Low Complexity 01/16/2021 12:0 0:00 AM EST [facility] ([facility] ) Ultrasound, Each 15 Min, Constant Attendance 12:00:00 AM EST [facility] ([facility] ) Bone Mineral Density Test 01/15/2021 12:00:00 AM EST [facility] ([facility]) ARTHROCENTESIS ASPIR&/INJECTION MAJOR JT/BURSA 021 12:00:00 AM EST [facility] ([facility] ) OFFICE OUTPATIENT VISIT 25 MINUTES 01/14/2021 12:00:00 AM EST [facility] ([facility] ) Ultrasound, Each 15 Min, Constant Attendance 12:00:00 AM EST [facility] ([facility] ) THERAPEUTIC PX 1/> AREAS EACH 15 MIN EXERCISES 12:00:00 AM EST [facility] ([facility] ) MANUAL THERAPY TQS 1/> REGIONS EACH 15 MINUTES 12:00:00 AM EST [facility] ([facility]) Ultrasound, Each 15 Min, Constant Attendance 12:00:00 AM EST [facility] ([facility]) THERAPEUTIC PX 1/> AREAS EACH 15 MIN EXERCISES 12:00:00 AM EST [facility] ([facility]) MANUAL THERAPY TQS 1/> REGIONS EACH 15 MINUTES 12:00:00 AM EST [facility] ([facility]) MANUAL THERAPY TQS 1/> REGIONS EACH 15 MINUTES 12:00:00 AM EST [facility] ([facility]) THERAPEUTIC PX 1/> AREAS EACH 15 MIN EXERCISES 12:00:00 AM EST [facility] ([facility] ) Ultrasound, Each 15 Min, Constant Attendance 12:00:00 AM EST [facility] ([facility] ) APPLICATION MODALITY 1/> AREAS HOT/COLD PACKS 01/04/20 21 12:00:00 AM EST [facility] ([facility]) APPLICATION MODALITY 1/> AREAS HOT/COLD PACKS 01/02/20 21 12:00:00 AM EST [facility] ([facility] ) Ultrasound, Each 15 Min, Constant Attendance 12:00:00 AM EST [facility] ([facility]) THERAPEUTIC PX 1/> AREAS EACH 15 MIN EXERCISES 12:00:00 AM EST [facility] ([facility]) MANUAL THERAPY TQS 1/> REGIONS EACH 15 MINUTES 12:00:00 AM EST [facility] ([facility]) THERAPEUTIC PX 1/> AREAS EACH 15 MIN EXERCISES 021 12:00:00 AM EST [facility] ([facility]) MANUAL THERAPY TQS 1/> REGIONS EACH 15 MINUTES 12:00:00 AM EST [facility] ([facility]) THERAPEUTIC PX 1/> AREAS EACH 15 MIN EXERCISES 021 12:00:00 AM EST [facility] ([facility]) MANUAL THERAPY TQS 1/> REGIONS EACH 15 MINUTES 021 12:00:00 AM EST [facility] ([facility]) THERAPEUTIC PX 1/> AREAS EACH 15 MIN EXERCISES 12:00:00 AM EST [facility] ([facility] ) MANUAL THERAPY TQS 1/> REGIONS EACH 15 MINUTES 12:00:00 AM EST [facility] ([facility] ) Ultrasound, Each 15 Min, Constant Attendance 12:00:00 AM EST [facility] ([facility] ) Re-Eval Of PT Established Plan Of Care 20Mins Face To Face P T/Fam 12/24/2020 12:00:00 AM EST [facility] ([facility] ) OFFICE OUTPATIENT VISIT 25 MINUTES 12/04/2020 12:00:00 AM EST [facility] ([facility]) ARTHROCENTESIS ASPIR&/INJECTION MAJOR JT/BURSA 12:00:00 AM EST [facility] ([facility] ) ARTHROCENTESIS ASPIR&/INJECTION MAJOR JT/BURSA 12:00:00 AM EST [facility] ([facility] ) ARTHROCENTESIS ASPIR&/INJECTION MAJOR JT/BURSA 12:00:00 AM EST [facility] ([facility] ) THERAPEUTIC PX 1/> AREAS EACH 15 MIN EXERCISES 12:00:00 AM EST [facility] ([facility] ) MANUAL THERAPY TQS 1/> REGIONS EACH 15 MINUTES 12:00:00 AM EST [facility] ([facility] ) THERAPEUTIC PX 1/> AREAS EACH 15 MIN EXERCISES 12:00:00 AM EST [facility] ([facility] ) MANUAL THERAPY TQS 1/> REGIONS EACH 15 MINUTES 12:00:00 AM EST [facility] ([facility] ) THERAPEUTIC PX 1/> AREAS EACH 15 MIN EXERCISES 12:00:00 AM EST [facility] ([facility] ) MANUAL THERAPY TQS 1/> REGIONS EACH 15 MINUTES 12:00:00 AM EST [facility] ([facility] ) THERAPEUTIC PX 1/> AREAS EACH 15 MIN EXERCISES 12:00:00 AM EST [facility] ([facility] ) MANUAL THERAPY TQS 1/> REGIONS EACH 15 MINUTES 12:00:00 AM EST [facility] ([facility]) THERAPEUTIC PX 1/> AREAS EACH 15 MIN EXERCISES 12:00:00 AM EST [facility] ([facility]) MANUAL THERAPY TQS 1/> REGIONS EACH 15 MINUTES 12:00:00 AM EST [facility] ([facility]) THERAPEUTIC PX 1/> AREAS EACH 15 MIN EXERCISES 12:00:00 AM EST [facility] ([facility]) MANUAL THERAPY TQS 1/> REGIONS EACH 15 MINUTES 12:00:00 AM EST [facility] ([facility] ) THERAPEUTIC PX 1/> AREAS EACH 15 MIN EXERCISES 12:00:00 AM EST [facility] ([facility]) MANUAL THERAPY TQS 1/> REGIONS EACH 15 MINUTES 12:00:00 AM EST [facility] ([facility] ) MANUAL THERAPY TQS 1/> REGIONS EACH 15 MINUTES 12:00:00 AM EST [facility] ([facility]) THERAPEUTIC PX 1/> AREAS EACH 15 MIN EXERCISES 12:00:00 AM EST [facility] ([facility]) THERAPEUTIC PX 1/> AREAS EACH 15 MIN EXERCISES 12:00:00 AM EST [facility] ([facility]) MANUAL THERAPY TQS 1/> REGIONS EACH 15 MINUTES 12:00:00 AM EST [facility] ([facility]) THERAPEUTIC PX 1/> AREAS EACH 15 MIN EXERCISES 12:00:00 AM EDT [facility] ([facility]) MANUAL THERAPY TQS 1/> REGIONS EACH 15 MINUTES 12:00:00 AM EDT [facility] ([facility]) THERAPEUTIC PX 1/> AREAS EACH 15 MIN EXERCISES 12:00:00 AM EDT [facility] ([facility]) MANUAL THERAPY TQS 1/> REGIONS EACH 15 MINUTES 12:00:00 AM EDT [facility] ([facility]) THERAPEUTIC PX 1/> AREAS EACH 15 MIN EXERCISES 12:00:00 AM EDT [facility] ([facility]) MANUAL THERAPY TQS 1/> REGIONS EACH 15 MINUTES 12:00:00 AM EDT [facility] ([facility]) THERAPEUTIC PX 1/> AREAS EACH 15 MIN EXERCISES 12:00:00 AM EDT [facility] ([facility]) MANUAL THERAPY TQS 1/> REGIONS EACH 15 MINUTES 12:00:00 AM EDT [facility] ([facility]) THERAPEUTIC PX 1/> AREAS EACH 15 MIN EXERCISES 12:00:00 AM EDT [facility] ([facility]) MANUAL THERAPY TQS 1/> REGIONS EACH 15 MINUTES 12:00:00 AM EDT [facility] ([facility]) THERAPEUTIC PX 1/> AREAS EACH 15 MIN EXERCISES 12:00:00 AM EDT [facility] ([facility]) MANUAL THERAPY TQS 1/> REGIONS EACH 15 MINUTES 12:00:00 AM EDT [facility] ([facility] ) THERAPEUTIC PX 1/> AREAS EACH 15 MIN EXERCISES 12:00:00 AM EDT [facility] ([facility]) MANUAL THERAPY TQS 1/> REGIONS EACH 15 MINUTES 12:00:00 AM EDT [facility] ([facility]) THERAPEUTIC PX 1/> AREAS EACH 15 MIN EXERCISES 12:00:00 AM EDT [facility] ([facility]) MANUAL THERAPY TQS 1/> REGIONS EACH 15 MINUTES 12:00:00 AM EDT [facility] ([facility]) THERAPEUTIC PX 1/> AREAS EACH 15 MIN EXERCISES 12:00:00 AM EDT [facility] ([facility]) MANUAL THERAPY TQS 1/> REGIONS EACH 15 MINUTES 12:00:00 AM EDT [facility] ([facility]) THERAPEUTIC PX 1/> AREAS EACH 15 MIN EXERCISES 12:00:00 AM EDT [facility] ([facility]) MANUAL THERAPY TQS 1/> REGIONS EACH 15 MINUTES 12:00:00 AM EDT [facility] ([facility]) THERAPEUTIC PX 1/> AREAS EACH 15 MIN EXERCISES 12:00:00 AM EDT [facility] ([facility]) MANUAL THERAPY TQS 1/> REGIONS EACH 15 MINUTES 020 12:00:00 AM EDT [facility] ([facility]) Results ID Date Data Source [id number] 08/28/2021 09:39:00 AM EDT [facility] ([facility]) Name Value Range Interpretation Code Description Data Krissy rce(s) Supporting Document(s) Glucose [Mass/volume] in Serum or Plasma 86 mg/dL 74-99 [facility] ([facility]) 100-125 mg/dL PRE-DIABETES/FASTING >126 mg/dL DIABETES/FASTING Urea nitrogen [Mass/volume] in Serum or Plasma 22 mg/dL 7-18 [facility] ([facility]) Creatinine 1.0 mg/dL 0.6-1.3 [facility]) Sodium [Moles/volume] in Serum or Plasma 146 meq/L 136-145 [facility] ([facility]) Potassium [Moles/volume] in Serum or Plasma 4.2 meq/L 3.5-5.1 [facility] ([facility]) Calcium [Mass/volume] in Serum or Plasma 9.5 mg/dL 8.5-10.1 [facility] ([facility]) Carbon dioxide, total [Moles/volume] in Serum or Plasma 29 meq/L 21 -32 [facility] ([facility]) Chloride [Moles/volume] in Serum or Plasma 108 meq/L 98-107 [facility] ([facility]) Glomerular filtration rate/1.73 sq M pre dicted among non-blacks [Volume Rate/Area] in Serum or Plasma by Creatinine-based formula (MDRD) 55 mL/min [facility] ([facility]) Glomerular filtration rate/1.73 sq M pre dicted among blacks [Volume Rate/Area] in Serum or Plasma by Creatinine-based formula (MDRD) [facility] <content>CHRONIC KIDNEY DISEASE STAGING PER NKF</content>
<content></content>
<content>STAGE I & II GFR >= 60 NORMAL TO MILDLY DECREASED</content>
<content>STAGE III GFR 30-59 MODERATELY DECREASED</content>
<content>STAGE IV GFR 15-29 SEVERELY DECREASED</content>
<content>STAGE V GFR <15 VERY LITTLE GFR LEFT</content>
<content>ESRD GFR <15 ON COKE BURNER</content>
<content></content> ID Date Data Source [id number] 05/23/2021 08:49:00 AM EDT [facility] ([facility]) Name Value Range Interpretation Code Description Data Krissy rce(s) Supporting Document(s) Glucose [Mass/volume] in Serum or Plasma 103 mg/dL 74-99 [facility] ([facility]) 100-125 mg/dL PRE-DIABETES/FASTING >126 mg/dL DIABETES/FASTING Urea nitrogen [Mass/volume] in Serum or Plasma 21 mg/dL 7-18 [facility] ([facility]) Creatinine 1.1 mg/dL 0.6-1.3 [facility] ([facility]) Sodium [Moles/volume] in Serum or Plasma 145 meq/L 136-145 [facility] ([facility]) Carbon dioxide, total [Moles/volume] in Serum or Plasma 34 meq/L 21 -32 [facility] ([facility]) Potassium [Moles/volume] in Serum or Plasma 3.9 meq/L 3.5-5.1 [facility] ([facility]) Chloride [Moles/volume] in Serum or Plasma 108 meq/L 98-107 [facility] ([facility]) Glomerular filtration rate/1.73 sq M pre dicted among non-blacks [Volume Rate/Area] in Serum or Plasma by Creatinine-based formula (MDRD) 49 mL/min [facility] ([facility]) Calcium [Mass/volume] in Serum or Plasma 8.9 mg/dL 8.5-10.1 [facility] ([facility]) Glomerular filtration rate/1.73 sq M pre dicted among blacks [Volume Rate/Area] in Serum or Plasma by Creatinine-based formula (MDRD) 59 mL/min [facility] ([facility]) <content>CHRONIC KIDNEY DISEASE STAGING PER NKF</content>
<content></content>
<content>STAGE I & II GFR >= 60 NORMAL TO MILDLY DECREASED</content>
<content>STAGE III GFR 30-59 MODERATELY DECREASED</content>
<content>STAGE IV GFR 15-29 SEVERELY DECREASED</content>
<content>STAGE V GFR <15 VERY LITTLE GFR LEFT</content>
<content>ESRD GFR <15 ON COKE BURNER</content>
<content></content> ID Date Data Source [id number] 03/07/2021 10:47:00 AM EDT [facility] Name Value Range Interpretation Code Description Data Krissy rce(s) Supporting Document(s) Calcidiol [Mass/volume] in Serum or Plasma 61.4 ng/mL 24.0-80.0 [facility] ([facility]) This test was performed using [employer] I P Vitamin D immunoassay kit. Values obtained with different assay methods should not be used interchangeably. ID Date Data Source [id number] 03/07/2021 10:47:00 AM EDT [facility] Name Value Range Interpretation Code Description Data Krissy rce(s) Supporting Document(s) Glucose [Mass/volume] in Serum or Plasma 78 mg/dL 74-99 [facility] ([facility]) 100-125 mg/dL PRE-DIABETES/FASTING >126 mg/dL DIABETES/FASTING Sodium [Moles/volume] in Serum or Plasma 142 meq/L 136-145 [facility] ([facility]) Urea nitrogen [Mass/volume] in Serum or Plasma 26 mg/dL 7-18 [facility] ([facility]) Creatinine 1.0 mg/dL 0.6-1.3 [facility] ([facility]) Potassium [Moles/volume] in Serum or Plasma 4.5 meq/L 3.5-5.1 [facility] ([facility]) Carbon dioxide, total [Moles/volume] in Serum or Plasma 31 meq/L 21 -32 [facility] ([facility]) Chloride [Moles/volume] in Serum or Plasma 106 meq/L 98-107 [facility] ([facility]) Calcium [Mass/volume] in Serum or Plasma 9.2 mg/dL 8.5-10.1 [facility] ([facility]) Glomerular filtration rate/1.73 sq M pre dicted among blacks [Volume Rate/Area] in Serum or Plasma by Creatinine-based formula (MDRD) Laboratory test result [facility] ([facility] <content>CHRONIC KIDNEY DISEASE STAGING PER NKF</content>
<content></content>
<content>STAGE I & II GFR >= 60 NORMAL TO MILDLY DECREASED</content>
<content>STAGE III GFR 30-59 MODERATELY DECREASED</content>
<content>STAGE IV GFR 15-29 SEVERELY DECREASED</content>
<content>STAGE V GFR <15 VERY LITTLE GFR LEFT</content>
<content>ESRD GFR <15 ON COKE BURNER</content>
<content></content> Glomerular filtration rate/1.73 sq M pre dicted among non-blacks [Volume Rate/Area] in Serum or Plasma by Creatinine-based formula (MDRD) 55 mL/min [facility] ([facility]) ID Date Data Source [id number] 03/07/2021 10:47:00 AM EDT [facility] ([facility] Name Value Range Interpretation Code Description Data Krissy rce(s) Supporting Document(s) Leukocytes [#/volume] in Blood by Automated count 8.1 x10*3/UL 4.1-10 .9 [facility] Erythrocytes [#/volume] in Blood by Automated count 4.60 x10*6/UL 4.2 0-6.30 [facility] Hemoglobin [Mass/volume] in Blood 13.5 g/dL 12.0-18.0 [facility] ([facility]) Hematocrit [Volume Fraction] of Blood by Automated count 40.6 % 3 7.0-51.0 [facility] ([facility]) MCV 88.2 fL 80.0-97.0 [facility] MCH 29.3 pg 26.0-32.0 [facility] MCHC 33.2 g/dL 31.0-38.0 [facility] ([facility]) Erythrocyte distribution width [Ratio] by Automated count 13.5 % 11.6-13.7 [facility] ([facility]) Lymph % 19.3 % 10.0-58.5 [facility] ([facility]) Platelets [#/volume] in Blood by Automated count 204 x10*3/UL 140-440 [facility] ([facility]) MPV 8.7 FL 7.8-11.0 [facility] ([facility]) Mid % 5.1 % 1.7-9.3 [facility] ([facility]) Mid # 0.5 x10*3/UL 0.1-0.6 [facility] ([facility]) Neut % 75.6 % 37.0-92.0 [facility] ([facility]) Lymph # 1.5 x10*3/UL 0.6-4.1 [facility] ([facility]) Neut # 6.1 x10*3/UL 2.0-7.8 [facility] ([facility]) ID Date Data Source [id number] 02/15/2021 12:56:00 PM EDT [facility] Name Value Range Interpretation Code Description Data Krissy rce(s) Supporting Document(s) Covid Rapid Testing Laboratory test result [facility] ([facility]) ID Date Data Source [id number] 02/15/2021 12:00:00 AM EDT [facility] Name Value Range Interpretation Code Description Data Krissy rce(s) Supporting Document(s) Covid Rapid Testing Negative [facility] This lab was ordered by [facility] and re ported by [facility]. ID Date Data Source [id number] 02/04/2021 09:12:00 AM EDT [facility] Name Value Range Interpretation Code Description Data Krissy rce(s) Supporting Document(s) Laboratory test finding (navigational concept) Laboratory test result [facility] ([facility] ) ID Date Data Source [id number] 12/04/2020 03:23:00 PM EST [facility] ([facility] Name Value Range Interpretation Code Description Data Krissy rce(s) Supporting Document(s) Dexa/Bone Density Laboratory test result [facility] ([facility]) ID Date Data Source [id number] 12/04/2020 03:21:00 PM EST [facility] ([facility]) Name Value Range Interpretation Code Description Data Krissy rce(s) Supporting Document(s) 3D Bi-Lateral Mammogram Laboratory test result [facility] ([facility]) ID Date Data Source [id number] 12/03/2020 08:15:00 AM EST [facility] ([facility]) Name Value Range Interpretation Code Description Data Krissy rce(s) Supporting Document(s) Cholesterol [Mass/volume] in Serum or Plasma 155 mg/dL 131-200 [facility] ([facility]) Cholesterol in HDL [Mass/volume] in Serum or Plasma 75 mg/dL 35-60 [facility] ([facility]) Triglyceride [Mass/volume] in Serum or Plasma 96 mg/dL 30-150 [facility] ([facility]) Cholesterol in LDL [Mass/volume] in Serum or Plasma by calcu lation 61 CALC 50-159 [facility] ([facility]) ID Date Data Source [id number] 12/03/2020 08:15:00 AM EST [facility] ([facility]) Name Value Range Interpretation Code Description Data Krissy rce(s) Supporting Document(s) Glucose [Mass/volume] in Serum or Plasma 88 mg/dL 74-99 [facility] ([facility]) 100-125 mg/dL PRE-DIABETES/FASTING >126 mg/dL DIABETES/FASTING Urea nitrogen [Mass/volume] in Serum or Plasma 24 mg/dL 7-18 [facility] ([facility]) Creatinine 1.0 mg/dL 0.6-1.3 [facility] ([facility]) Sodium [Moles/volume] in Serum or Plasma 142 meq/L 136-145 [facility] ([facility]) Potassium [Moles/volume] in Serum or Plasma 4.3 meq/L 3.5-5.1 [facility] ([facility]) Chloride [Moles/volume] in Serum or Plasma 105 meq/L 98-107 [facility] ([facility]) Carbon dioxide, total [Moles/volume] in Serum or Plasma 31 meq/L 21 -32 [facility] ([facility]) Calcium [Mass/volume] in Serum or Plasma 9.4 mg/dL 8.5-10.1 [facility] ([facility]) Alkaline phosphatase isoenzyme [Units/volume] in Serum or Pl asma 86 mg/dL 46-116 [facility] ([facility]) Total Bilirubin 0.4 mg/dL 0.2-1.0 [facility] ([facility]) Aspartate aminotransferase [Enzymatic activity/volume] in Serum or Plasma 25 U/L 15-37 [facility] ([facility] ) Alanine aminotransferase [Enzymatic activity/volume] in Seru m or Plasma 35 U/L 12-78 [facility] ([facility]) Albumin [Mass/volume] in Serum or Plasma 4.0 g/dL 3.4-5.0 [facility] ([facility]) Proteinase 3 Ab [Units/volume] in Serum 7.0 g/dL 6.4-8.2 [facility] ([facility]) A/G Ratio 1.33 CALC 1.00-1.90 [facility] Glomerular filtration rate/1.73 sq M pre dicted among non-blacks [Volume Rate/Area] in Serum or Plasma by Creatinine-based formula (MDRD) 55 mL/min [facility] ([facility] Glomerular filtration rate/1.73 sq M pre dicted among blacks [Volume Rate/Area] in Serum or Plasma by Creatinine-based formula (MDRD) Laboratory test [facility] <content>CHRONIC KIDNEY DISEASE STAGING PER NKF</content>
<content></content>
<content>STAGE I & II GFR >= 60 NORMAL TO MILDLY DECREASED</content>
<content>STAGE III GFR 30-59 MODERATELY DECREASED</content>
<content>STAGE IV GFR 15-29 SEVERELY DECREASED</content>
<content>STAGE V GFR <15 VERY LITTLE GFR LEFT</content>
<content>ESRD GFR <15 ON COKE BURNER</content>
<content></content> ID Date Data Source [id number] 12/03/2020 08:15:00 AM EST [facility] ([facility]) Name Value Range Interpretation Code Description Data Krissy rce(s) Supporting Document(s) Creatine kinase [Enzymatic activity/volume] in Serum or Plasma 102 U/L 26-192 [facility] ([facility]) Magnesium 2.1 mg/dL 1.8-2.4 [facility] ([facility]) ID Date Data Source [id number] 12/03/2020 08:15:00 AM EST [facility] ([facility]) Name Value Range Interpretation Code Description Data Krissy rce(s) Supporting Document(s) Leukocytes [#/volume] in Blood by Automated count 6.0 x10*3/UL 4.1-10 .9 [facility] ([facility]) Erythrocytes [#/volume] in Blood by Automated count 4.54 x10*6/UL 4.2 0-6.30 [facility] ([facility]) Hemoglobin [Mass/volume] in Blood 13.3 g/dL 12.0-18.0 [facility] ([facility]) Hematocrit [Volume Fraction] of Blood by Automated count 39.8 % 3 7.0-51.0 [facility] ([facility]) MCV 87.8 fL 80.0-97.0 [facility] ([place] [facility]) MCH 29.3 pg 26.0-32.0 [facility] ([facility] [facility]) MCHC 33.4 g/dL 31.0-38.0 [facility] ([facility]) Erythrocyte distribution width [Ratio] by Automated count 12.8 % 11.6-13.7 [facility] ([facility]) Platelets [#/volume] in Blood by Automated count 209 x10*3/UL 140-440 [facility] ([facility]) Lymph % 25.4 % 10.0-58.5 [facility] ([facility] [facility]) MPV 8.5 FL 7.8-11.0 [facility] ([facility]) Mid % 6.0 % 1.7-9.3 [facility] ([facility] [facility] Neut % 68.6 % 37.0-92.0 [facility] ([facility]) Lymph # 1.5 x10*3/UL 0.6-4.1 [facility] ([facility]) Mid # 0.4 x10*3/UL 0.1-0.6 [facility] ([facility]) Neut # 4.1 x10*3/UL 2.0-7.8 [facility] ([facility]) ID Date Data Source [id number] 12/03/2020 08:15:00 AM EST [facility] ([facility]) Name Value Range Interpretation Code Description Data Krissy rce(s) Supporting Document(s) Microalbumin Urine 12.7 mg/L 1.3-20.0 [facility] ([facility]) Urine Creatinine 180.8 mg/dL 30.0-125.0 [facility] ([facility]) Microalb/Creat Ratio 7.0 ug/mg 0.0-30.0 [facility] ([facility]) ID Date Data Source [id number] 12/03/2020 08:15:00 AM EST [facility] ([facility] Name Value Range Interpretation Code Description Data Krissy rce(s) Supporting Document(s) Urine Color Laboratory test result [facility] ([facility]) Urine Appearance Laboratory test result Abnormal (applies to non-numeric results) [facility] ([facility] Urine PH 6.0 units 5.0-9.0 [facility] ([facility]) Specific gravity of Urine 1.015 1.005-1.030 [facility] ([facility] Urine Leukocytes Laboratory test result Abnormal (applies to non-numeric results) [facility] ([facility]) Urine Blood Laboratory test result [facility] ([facility]) Urine Protein Laboratory test result 0-0 [facility] ([facility]) Glucose [Presence] [facility]rine [facility] Urine Nitrite Laboratory test result [facility] ([facility]) Urine Ketone Laboratory test result [facility] ([place] [facility] Urine Urobilinogen 0.2 mg/dL 0.2-1.0 [facility] Bilirubin.total [Mass/volume] in Serum or Plasma [facility] ID Date Data Source [id number] 12/03/2020 08:15:00 AM EST [facility] Name Value Range Interpretation Code Description Data Krissy rce(s) Supporting Document(s) Thyrotropin [Units/volume] in Serum or Plasma by Detec tion limit <= 0.05 mIU/L 1.60 uIU/mL 0.36-3.74 [facility] ID Date Data Source [id number] 09/21/2020 07:41:00 AM EDT [facility] Name Value Range Interpretation Code Description Data Krissy rce(s) Supporting Document(s) Glucose [Mass/volume] in Serum or Plasma 130 mg/dL 74-99 [facility] ([facility]) 100-125 mg/dL PRE-DIABETES/FASTING >126 mg/dL DIABETES/FASTING Urea nitrogen [Mass/volume] in Serum or Plasma 27 mg/dL 7-18 [facility] ([facility]) Creatinine 1.4 mg/dL 0.6-1.3 [facility] ([facility]) Sodium [Moles/volume] in Serum or Plasma 143 meq/L 136-145 [facility] ([facility]) Potassium [Moles/volume] in Serum or Plasma 3.8 meq/L 3.5-5.1 [facility] ([facility]) Chloride [Moles/volume] in Serum or Plasma 105 meq/L 98-107 [facility] ([facility]) Carbon dioxide, total [Moles/volume] in Serum or Plasma 33 meq/L 21 -32 [facility] ([facility]) Calcium [Mass/volume] in Serum or Plasma 8.9 mg/dL 8.5-10.1 [facility] ([facility]) Glomerular filtration rate/1.73 sq M pre dicted among non-blacks [Volume Rate/Area] in Serum or Plasma by Creatinine-based formula (MDRD) 37 mL/min [facility] ([facility]) Glomerular filtration rate/1.73 sq M pre dicted among blacks [Volume Rate/Area] in Serum or Plasma by Creatinine-based formula (MDRD) 45 mL/min [facility] ([facility]) <content>CHRONIC KIDNEY DISEASE STAGING PER NKF</content>
<content></content>
<content>STAGE I & II GFR >= 60 NORMAL TO MILDLY DECREASED</content>
<content>STAGE III GFR 30-59 MODERATELY DECREASED</content>
<content>STAGE IV GFR 15-29 SEVERELY DECREASED</content>
<content>STAGE V GFR <15 VERY LITTLE GFR LEFT</content>
<content>ESRD GFR <15 ON COKE BURNER</content>
<content></content> Procedure Social History No Information Vital Signs ID Date Data Source UNK Name Value Range Interpretation Code Description Data Source(s) Systolic blood pressure 142 mm[Hg] 142 mm[Hg] [facility] RT Arm Body weight 184.12 [lb_av] 184.12 [lb_av] [facility] ([facility]) verbal Body mass index (BMI) [Ratio] 33.1 kg/m2 33.1 k g/m2 [facility] ([facility]) Diastolic blood pressure 80 mm[Hg] 80 mm[Hg] [facility] ([facility]) RT Arm Systolic blood pressure 126 mm[Hg] 126 mm[Hg] [facility] ([facility]) Diastolic blood pressure 84 mm[Hg] 84 mm[Hg] [facility] ([facility]) Heart rate 80 /min 80 /min [facility] ([facility]) Body height 62.50 [in_i] 62.50 [in_i] [facility] ([facility]) 5'2.50" Body height 62 [in_i] 62 [in_i] [facility] ([facility] 5'2" Body weight 183.12 [lb_av] 183.12 [lb_av] [facility] ([facility] ) Body mass index (BMI) [Ratio] 33.5 kg/m2 33.5 k g/m2 [facility] ([facility] ) Body temperature 96.2 [degF] 96.2 [degF] [facility] ([facility]) Systolic blood pressure 150 mm[Hg] 150 mm[Hg] [facility] Diastolic blood pressure 86 mm[Hg] 86 mm[Hg] [facility] ([facility]) Systolic blood pressure 130 mm[Hg] 130 mm[Hg] [facility] Diastolic blood pressure 82 mm[Hg] 82 mm[Hg] [facility] Heart rate 84 /min 84 /min [facility] ([facility]) Body height 62.50 [in_i] 62.50 [in_i] [facility] ([facility]) 5'2.50" Body weight 186.38 [lb_av] 186.38 [lb_av] [facility] ([facility]) Body mass index (BMI) [Ratio] 33.5 kg/m2 33.5 k g/m2 [facility] ([facility]) Body weight 180.00 [lb_av] 180.00 [lb_av] [facility] ([facility] ) Body temperature 96.9 [degF] 96.9 [degF] [facility] ([facility] ) Body height 62 [in_i] 62 [in_i] [facility] ([facility] ) 5'2" Body mass index (BMI) [Ratio] 32.9 kg/m2 32.9 k g/m2 [facility] ([facility] ) Body temperature 97.6 [degF] 97.6 [degF] [facility] ([facility] ) Body temperature 96.2 [degF] 96.2 [degF] [facility] ([facility] ) Systolic blood pressure 124 mm[Hg] 124 mm[Hg] [facility] RT Arm Diastolic blood pressure 60 mm[Hg] 60 mm[Hg] [facility] ([facility]) RT Arm Heart rate 81 /min 81 /min [facility] ([facility]) Body height 62.50 [in_i] 62.50 [in_i] [facility] ([facility]) 5'2.50" Body weight 182.12 [lb_av] 182.12 [lb_av] [facility] ([facility]) verbal Oxygen saturation in Arterial blood by Pulse oximetry 96 % 96 % [facility] ([facility]) RM Air Body mass index (BMI) [Ratio] 32.8 kg/m2 32.8 k g/m2 [facility] ([facility]) Body weight 186.12 [lb_av] 186.12 [lb_av] [facility] ([facility]) Body height 61.75 [in_i] 61.75 [in_i] [facility] ([facility]) 5'1.75" Body mass index (BMI) [Ratio] 34.3 kg/m2 34.3 k g/m2 [facility] ([facility]) Body temperature 96.1 [degF] 96.1 [degF] [facility] ([facility]) Body weight 188.25 [lb_av] 188.25 [lb_av] [facility] ([facility]) Heart rate 72 /min 72 /min [facility] ([facility]) Body mass index (BMI) [Ratio] 33.9 kg/m2 33.9 k g/m2 [facility] ([facility]) Systolic blood pressure 128 mm[Hg] 128 mm[Hg] M [facility] ([facility]) Diastolic blood pressure 64 mm[Hg] 64 mm[Hg] [facility] ([facility]) Body height 62.50 [in_i] 62.50 [in_i] [facility] ([facility]) 5'2.50" Oxygen saturation in Arterial blood by Pulse oximetry 98 % 98 % [facility] ([facility]) RM Air Systolic blood pressure 116 mm[Hg] 116 mm[Hg] M [facility] ([facility]) RT Arm Body weight 178.50 [lb_av] 178.50 [lb_av] [facility] ([facility]) Verbal Diastolic blood pressure 70 mm[Hg] 70 mm[Hg] [facility] ([facility]) RT Arm Heart rate 80 /min 80 /min [facility] ([facility]) Body height 62.50 [in_i] 62.50 [in_i] [facility] 5'2.50" Body mass index (BMI) [Ratio] 32.1 kg/m2 32.1 k g/m2 [facility]
[2021-10-27 16:21] VITALS: BP 121/56
== END 2021-10-27 16:21 | disposition home or self-care (01) ==
LOC: M ED 10:17
DX: S52.351A Displaced comminuted fracture of shaft of radius, right arm, initial encounter for closed fracture (principal); S52.611A Displaced fracture of right ulna styloid process, initial encounter for closed fracture; I10 Essential (primary) hypertension; E78.5 Hyperlipidemia, unspecified; F41.9 Anxiety disorder, unspecified; W00.9XXA Unspecified fall due to ice and snow, initial encounter; Z98.84 Bariatric surgery status; Z88.2 Allergy status to sulfonamides; Z88.0 Allergy status to penicillin; Z88.6 Allergy status to analgesic agent; Y92.009 Unspecified place in unspecified non-institutional (private) residence as the place of occurrence of the external cause; Y93.9 Activity, unspecified; Y99.9 Unspecified external cause status

== ENCOUNTER → 2021-12-18 | Outpatient (REF) | LOC: M LABSMTC 09:27 | PROVIDERS: ATTEND Pediatrics | DX: Z11.52 Encounter for screening for COVID-19 (principal) ==

== ENCOUNTER → 2022-06-25 | Outpatient (CLI) | payer MEDICARE, OTHER ==
[2022-06-25 12:01] LABS: HEMATOCRIT 44.4 % (36.0-47.0); MEAN CORPUSCULAR HEMOGLOBIN 29.3 pg (27.0-33.0); MEAN CORPUSCULAR HGB CONC 31.5 g/dl (32.0-36.5); MEAN CORPUSCULAR VOLUME 92.9 fl (80.0-96.0); PLATELET COUNT, AUTOMATED 199 10^3/uL (150-450); RED BLOOD COUNT 4.78 10^6/uL (4.00-5.40); WHITE BLOOD COUNT 7.8 10^3/uL (4.0-10.0)
[2022-06-25 12:14] LABS: INR 0.96; PROTHROMBIN TIME 13.2 SECONDS (12.7-14.5)
[2022-06-25 12:53] LABS: ERYTHROCYTE SEDIMENTATION RATE 13 mm/hr (0-30)
[2022-06-25 13:58] LABS: ALBUMIN 3.8 GM/DL (3.2-5.2); BILIRUBIN,TOTAL 0.3 MG/DL (0.2-1.0); CALCIUM LEVEL 9.6 MG/DL (8.8-10.2); CREATININE FOR GFR 1.06 MG/DL (0.55-1.30); GLOMERULAR FILTRATION RATE 54.1 (>39); POTASSIUM SERUM 4.6 MEQ/L (3.5-5.1); TOTAL PROTEIN 6.9 GM/DL (6.4-8.2)
== END ==
LOC: M LAB 10:08
PROVIDERS: ATTEND Orthopaedic Surgery
DX: M17.12 Unilateral primary osteoarthritis, left knee (principal); Z79.899 Other long term (current) drug therapy

== ENCOUNTER → 2022-08-28 | Outpatient (CLI) | payer MEDICARE, OTHER | LOC: M WHC 11:21 | PROVIDERS: ATTEND Internal Medicine | DX: Z12.31 Encounter for screening mammogram for malignant neoplasm of breast (principal) ==

== ENCOUNTER → 2023-09-01 | Outpatient (CLI) | payer MEDICARE, OTHER ==
[~2023-09-01] MED LIST changes: +BIOT1TAB6 PO; +D200CAP2 PO; +EFFE75CA2 PO; +LISI40TA4 PO; +OMEP-173 PO; +ZOVI5CRE4 EXT
== END ==
LOC: M WHC 11:17
PROVIDERS: ATTEND Internal Medicine
DX: Z12.31 Encounter for screening mammogram for malignant neoplasm of breast (principal)

== ENCOUNTER 2023-11-23 15:29 | Emergency (ER) | payer MEDICARE, OTHER ==
[~2023-11-23] VITALS: Ht 157.5 cm; Wt 85.1 kg
[~2023-11-23 15:29] MED LIST changes: -EFFE150C2 PO; +EFFE150C3 PO
[2023-11-23] MEDS ORDERED: ONDA4TAB6 PO (16:45)
[2023-11-23 17:03] VITALS: BP 173/80; TEMP 97.5; O2SAT 99
== END 2023-11-23 17:05 | disposition home or self-care (01) ==
LOC: M ED 15:29
DX: S00.03XA Contusion of scalp, initial encounter (principal); W01.198A Fall on same level from slipping, tripping and stumbling with subsequent striking against other object, initial encounter; K21.9 Gastro-esophageal reflux disease without esophagitis; I10 Essential (primary) hypertension; E78.5 Hyperlipidemia, unspecified; F41.9 Anxiety disorder, unspecified; Y92.009 Unspecified place in unspecified non-institutional (private) residence as the place of occurrence of the external cause; Y93.89 Activity, other specified; Y99.9 Unspecified external cause status; Z88.2 Allergy status to sulfonamides; Z88.1 Allergy status to other antibiotic agents; Z88.5 Allergy status to narcotic agent; Z79.811 Long term (current) use of aromatase inhibitors; Z79.83 Long term (current) use of bisphosphonates; Z79.899 Other long term (current) drug therapy

== ENCOUNTER → 2023-12-17 | Outpatient (CLI) | payer MEDICARE, OTHER ==
[~2023-12-17] MED LIST changes: +ONDA4TAB6 PO
== END ==
LOC: M WHC 09:18
PROVIDERS: ATTEND Internal Medicine
DX: M85.89 Other specified disorders of bone density and structure, multiple sites (principal)

== ENCOUNTER → 2024-09-05 | Outpatient (CLI) | payer MEDICARE, OTHER ==
[~2024-09-05] MED LIST changes: +GABA-1490 PO; -GABA600T4 PO; +ONDA-282 PO; -ONDA4TAB6 PO; +ROSU5TAB40 PO; -ROSU5TAB5 PO
== END ==
LOC: M WHC 08:23
PROVIDERS: ATTEND Internal Medicine
DX: Z12.31 Encounter for screening mammogram for malignant neoplasm of breast (principal); R92.313 Mammographic fatty tissue density, bilateral breasts

== ENCOUNTER → 2024-09-08 | Outpatient (CLI) | payer MEDICARE, OTHER | LOC: M PLARAD 12:20 | PROVIDERS: ATTEND Physician Assistant Surgical | DX: M75.41 Impingement syndrome of right shoulder (principal); M75.121 Complete rotator cuff tear or rupture of right shoulder, not specified as traumatic ==

== ENCOUNTER → 2024-10-10 | Outpatient (CLI) | payer MEDICARE, OTHER ==
[~2024-10-10] MED LIST changes: +ISOVUE-300 61% 100ML VIAL As Ordered ONE; +LIDOCAINE 1% MDV 20ML VIAL As Ordered ONE; -ROSU5TAB40 PO; +ROSU5TAB49 PO; +methylPREDNISolone SUSP 40MG/ML 1ML VIAL (DEPO MEDROL) As Ordered ONE
== END ==
LOC: M RAD 14:53
PROVIDERS: ATTEND Physician Assistant Surgical
DX: M19.011 Primary osteoarthritis, right shoulder (principal)
CPT/HCPCS: 20610; 77002; J1010; Q9967